=== PATIENT | female | born 1980 | race Caucasian/White ===

== ENCOUNTER 2019-08-13 21:30 | Emergency (ER) | payer OTHER ==
[~2019-08-13] VITALS: Ht 172.7 cm; Wt 67.1 kg
--- OUTSIDE RECORDS SUMMARY | 2019-08-13 21:33 | XMS REPORT | Summary of Care ---
Author Author [facility] - Health Organization [facility] - Health Address Unknown Phone Unavailable Care Team Providers Care Hydro Electric Station Operator Name Role Phone Pcp, Patient Does Not Have A PCP [phone] Reason for Visit * Reason Comments Refill Request Encounter Details Care Team Description Date Type Department Angeli Hester MD [address] [place] [address] Refill Request 10/12/2018 Refill [facility] [employer] [address] [place] [address] Allergies Comments Active Allergy Reactions Severity Noted Date Azithromycin Swelling 09/05/2018 documented as of this encounter (statuses as of 10/17/2018) Medications End Date Status Medication Sig Dispensed Refills Start Date Active cyclobenzaprine 10 mg Take 1 tablet 20 tablet 0 tabletIndications: Muscle by mouth at 9 spasm bedtime as needed for Muscle Spasms. Active propranolol (INDERAL XL) Take 1 30 capsule 1 0 80 mg 24 hr capsule by 9 capsuleIndications: mouth daily. Migraine without aura and without status migrainosus, not intractable 10/12/2018 Discontinued propranolol (INDERAL XL) Take 1 30 capsule 1 0 80 mg 24 hr capsule capsule by 9 mouth daily. documented as of this encounter (statuses as of 10/17/2018) Active Problems Estimated Date of Delivery Comments Yes 12/14/2018 Based on last menst rual period of 03/09/2018 (Exact Date) No additional problems on filedocumented as of this encounter (statuses as of 10/17/2018) Immunizations Name Administration Dates Next Due TDAP (ADACEL) VACCINE 09/21/2018 documented as of this encounter Social History Date Tobacco Use Types Packs/Day Years Used Started: 1998 Current Every Day Smoker Cigarettes Smokeless Tobacco: Never Used Comments: 2-3/day Drinks/Week oz/Week Comments Alcohol Use Not Currently Alcohol Habits Answer Date Recorded How often do you have a drink containing alcohol? Never 09/05/2018 How many drinks containing alcohol do you have on No t asked a typical day when you are drinking? How often do you have six or more drinks on one Not asked occasion? Estimated Date of Delivery Comments Yes 12/14/2018 Based on last menst rual period of 03/09/2018 (Exact Date) Sex Assigned at Date Recorded Not on file Industry Job Start Date Occupation Not on file Not on file Not on file Travel End Travel History Travel Start No recent travel history available. documented as of this encounter Last Filed Vital Signs Not on filedocumented in this encounter Plan of Treatment Care Team Description Date Type Specialty Angeli Hester MD [address] [place] [address] [phone] 10/19/2018 Routine Obstetrics & Gyneco logy Visit Health Maintenance Due Date Last Done Comments PNEUMOCOCCAL 0-64 YEARS 06/17/1985 COMBINED SERIES (1 of 1 - PPSV23) PAP SMEAR 06/17/2000 INFLUENZA VACCINE 11/18/2018 DTaP,Tdap,and Td Vaccines 09/21/2028 09/21/2018 (2 - Td) documented as of this encounter Results Not on filedocumented in this encounter Visit Diagnoses Diagnosis Migraine without aura and without statu s migrainosus, not intractable - Primary Migraine without aura, without mention of intractable migraine without mention of status migrainosus documented in this encounter Insurance Type Payer Benefit Subscriber ID Effective Phone Address Plan / Dates Group Medicaid COMMUNITY HEALTH CHOICE - COMMUNITY xxxxxxxxx 2018-P [address] MANAGED MEDICAID HEALTH resent [id number] [address] [place], [place] [address] documented as of this encounter
--- OUTSIDE RECORDS SUMMARY | 2019-08-13 21:33 | XMS REPORT | Summary of Care ---
Author Author [facility] - Health Organization [facility] - Health Address Unknown Phone Unavailable Care Team Providers Care Production Solderer Name Role Phone Pcp, Patient Does Not Have A PCP [phone] Reason for Visit * Reason Comments Care Encounter Details Care Team Description Date Type Department Angeli Hester MD [address] [place] [address] Supervision of high-risk of maria isabel navas multigravida (Primary Dx); White classification A1 gestational diabetes mellitus; Muscle spasm; Migraine without aura and without status migrainosus, not intractable; Excessive growth affecting management of in third trimester, single or unspecified fetus 10/11/2018 Routine [facility] [address] [place] [address] Allergies Comments Active Allergy Reactions Severity Noted Date Azithromycin Swelling 09/05/2018 documented as of this encounter (statuses as of 10/11/2018) Medications End Date Status Medication Sig Dispensed Refills Start Date Active propranolol (INDERAL XL) Take 1 30 capsule 1 0 80 mg 24 hr capsule capsule by 9 mouth daily. Active cyclobenzaprine 10 mg Take 1 tablet 20 tablet 0 tabletIndications: Muscle by mouth at 9 spasm bedtime as needed for Muscle Spasms. documented as of this encounter (statuses as of 10/11/2018) Active Problems Estimated Date of Delivery Comments Yes 12/14/2018 Based on last menst rual period of 03/09/2018 (Exact Date) No additional problems on filedocumented as of this encounter (statuses as of 10/11/2018) Immunizations Name Administration Dates Next Due TDAP [...] of this encounter Last Filed Vital Signs Reading Time Taken Comments Vital Sign 126/72 10/11/2018 1:25 PM CDT Blood Pressure 114 10/11/2018 1:25 PM CDT Pulse - - Temperature - - Respiratory Rate - - Oxygen Saturation - - Inhaled Oxygen Concentration 76.8 kg (169 lb 6.4 oz) 10/11/2018 1:25 PM CDT Weight 175.3 cm (5' 9") 10/11/2018 1:25 PM CDT Height 25.02 10/11/2018 1:25 PM CDT Body Mass Index documented in this encounter Progress Notes * Angeli Hester MD - 10/11/2018 1:00 PM CDT Chief complaint: care HPI Delma Hanley is a 38 year old female at 30w6d presenting for care. She reports migraines are controlled on inderall, has lots of discomfort f rom baby but otherwise feeling well. Denies [place]/dizziness/visual changes/sob/ches t pain/nausea/vomiting/LOF/bleeding, reports very active movement. Histories OB History Para Term AB Living 5 3 3 0 1 3 SAB TAB Ectopic Multiple Live Births 2 # Outcome Date GA Lbr Adriano/2nd Weight Sex Delivery Anes PTL Lv 5 Current 4 AB 3 Term 6 lb 8 oz (2.948 kg) F 2 Term 37w0d 6 lb 11 oz (3.033 kg) M SEC THAD 1 Term 7 lb 8 oz (3.402 kg) NORMAL SPONT TAHD Past Medical History: Diagnosis Date Asthma Migraines Family History Problem Relation Age of Onset Cancer NoFHx Family Status Relation Name Status NoFHx (Not Specified) Past Surgical History: Procedure Laterality Date APPENDECTOMY SECTION Social History Socioeconomic History Marital status: Spouse name: Not on file Number of children: Not on file Years of education: Not on file Highest education level: Not on file Occupational History Occupation: [employer]AY AT [employer]HER Social Needs Financial resource strain: Not on file Food insecurity: Worry: Not on file Inability: Not on file Transportation needs: Medical: Not on file Non-medical: Not on file Tobacco Use Smoking status: Current Every Day Smoker Types: Cigarettes Start date: 1998 Smokeless tobacco: Never Used Tobacco comment: 2-3/day Substance and Sexual Activity Alcohol use: Not Currently Frequency: Never Drug use: Yes Types: MDMA (Ecstacy), Marijuana Comment: HX OF DRUG USE -PT HAS BEEN CLEAN SINCE 04/2018 Sexual activity: Yes Partners: Male control/protection: None Lifestyle Physical activity: Days per week: Not on file Minutes per session: Not on file Stress: Not on file Relationships Social connections: Talks on phone: Not on file Gets together: Not on file Attends faith service: Not on file Active member of club or organization: Not on file Attends meetings of clubs or organizations: Not on file Relationship status: Not on file Intimate partner violence: Fear of current or ex partner: Not on file Emotionally abused: Not on file Physically abused: Not on file Forced sexual activity: Not on file Other Topics Concern Not on file Social History Narrative Not on file Social History Substance and Sexual Activity Sexual Activity Yes Partners: Male control/protection: None Labs No new labs Radiology I have reviewed the patient's radiology. EFW 95% Allergies Delma is allergic to azithromycin. Medications Delma has a current medication list which includes the following prescription(s ): propranolol. Review of Systems Constitutional: Negative. Respiratory: Negative. Cardiovascular: Negative. Gastrointestinal: Negative. Genitourinary: Negative. Musculoskeletal: Negative. Skin: Negative. Psychiatric/Behavioral: Positive for sleep disturbance. BP 126/72 | Pulse 114 | Ht 5' 9" (1.753 m) | Wt 169 lb 6.4 oz (76.8 kg) | LM P 03/09/2018 (Exact Date) | BMI 25.02 kg/m Pregravid BMI: Could not be calculated Physical Exam Vitals reviewed. Constitutional: She is oriented to person, place, and time. She appears well-dev eloped, well-nourished and well-groomed. Her body habitus is normal. Abdominal: Abdomen is soft. No mass palpated. No tenderness present. There is no rigidity and no guarding. Neuro/Psychiatric: She has a normal mood and affect. She is oriented to person, place, and time. Skin: Skin normal. Assessment/Plan Supervision of high-risk of elderly multigravida (primary encounter d iagnosis) Comment: FH 32 cm, FHT 155, BP 126/72, reviewed how to do kick counts - follow up in 1 week or PRN White classification A1 gestational diabetes mellitus Comment: did not bring log, reports most values normal except fasting, will mess age log Muscle spasm Comment: PRN flexeril Migraine without aura and without status migrainosus, not intractable Comment: controlled on inderall, patient has had for years Excessive growth affecting management of in third trimester, sin gle or unspecified fetus Comment: EFW 95% on recent ultrasound, still have not received earliest ultrasou nd report, will send ROR to Dr. Katrina Hester MD, 10/11/2018 documented in this encounter Plan of Treatment Care Team Description Date Type Specialty Angeli Hester MD [address] [place], [place] [id number] 10/17/2018 Routine Obstetrics & Gyneco logy Visit Health Maintenance Due Date Last Done Comments PNEUMOCOCCAL 0-64 YEARS 06/17/1985 COMBINED SERIES (1 of 1 - PPSV23) PAP SMEAR 06/17/2000 INFLUENZA VACCINE 11/18/2018 DTaP,Tdap,and Td Vaccines 09/21/2028 09/21/2018 (2 - Td) documented as of this encounter Results Not on filedocumented in this encounter Visit Diagnoses Diagnosis Supervision of high-risk of e lderly multigravida - Primary White classification A1 gestational hyun betes mellitus Muscle spasm Spasm of muscle Migraine without aura and without statu s migrainosus, not intractable Migraine without aura, without mention of intractable migraine without mention of status migrainosus Excessive growth affecting manage ment of in third trimester, single or unspecified fetus documented in this encounter Insurance Type Payer Benefit Subscriber ID Effective Phone Address Plan / Dates Group Medicaid COMMUNITY HEALTH CHOICE - COMMUNITY xxxxxxxxx 2018-P [address]NAGED MEDICAID HEALTH resent [id number] [address], [place] [address] documented as of this encounter
--- OUTSIDE RECORDS SUMMARY | 2019-08-13 21:33 | XMS REPORT | Summary of Care ---
Author Author [facility] - Health Organization [facility] - Health Address Unknown Phone Unavailable Care Team Providers Care Gynecological Assistant Name Role Phone Pcp, Patient Does Not Have A PCP [phone] Reason for Visit * Reason Comments Care Encounter Details Care Team Description Date Type Department Angeli Hester MD [address] [place] [address] Supervision of high-risk of maria isabel navas multigravida (Primary Dx); White classification A1 gestational diabetes mellitus; Muscle spasm; Migraine without aura and without status migrainosus, not intractable; Excessive growth affecting management of in third trimester, single or unspecified fetus 10/11/2018 Routine [facility] Women[facility] Visit [facility]- [facility] [address] [place] [address] Allergies Comments Active Allergy Reactions Severity Noted Date Azithromycin Swelling 09/05/2018 documented as of this encounter (statuses as of 10/16/2018) Medications End Date Status Medication Sig Dispensed Refills Start Date Active propranolol (INDERAL XL) Take 1 30 capsule 1 0 80 mg 24 hr capsule capsule by 9 mouth daily. Active cyclobenzaprine 10 mg Take 1 tablet 20 tablet 0 tabletIndications: Muscle by mouth at 9 spasm bedtime as needed for Muscle Spasms. documented as of this encounter (statuses as of 10/16/2018) Active Problems Estimated Date of Delivery Comments Yes 12/14/2018 Based on last menst rual period of 03/09/2018 (Exact Date) No additional problems on filedocumented as of this encounter (statuses as of 10/16/2018) Immunizations Name Administration Dates Next Due TDAP [...] documented in this encounter Progress Notes * Mariola Méndez RN - 10/11/2018 1:00 PM CDT Attempted to contact patient regarding scheduling diabetic education Detailed message left. Per forrest, can schedule with adrienne 10/15 at 11am * Angeli Hester MD - 10/11/2018 1:00 [...] Births 2 # Outcome Date GA Lbr Adrinao/2nd Weight Sex Delivery Anes PTL Lv 5 Current 4 AB 3 Term 6 lb 8 oz (2.948 kg) F 2 Term 37w0d 6 lb 11 oz (3.033 kg) M SEC THAD 1 Term 7 lb 8 oz (3.402 kg) NORMAL SPONT THAD Past Medical History: Diagnosis Date Asthma Migraines [...] file Gets together: Not on file Attends islam service: Not on file Active member of [...] Description Date Type Specialty Angeli Hester MD [address] [place], [place] [id number] 10/17/2018 Routine Obstetrics & Gyneco logy Visit [...] 2018-P [address]GED MEDICAID HEALTH resent [id number] [address], [place] [address] documented as of this encounter
--- OUTSIDE RECORDS SUMMARY | 2019-08-13 21:33 | XMS REPORT | Summary of Care ---
Author Author [facility] - Health Organization [facility] - Health Address Unknown Phone Unavailable Care Team Providers Care Tubular Splitting Machine Tender Name Role Phone Pcp, Patient Does Not Have A PCP [phone] Reason for Visit * Reason Comments Rx Concern/Question Auth Encounter Details Care Team Description Date Type Department Angeli Hester MD [address] [place] [address] Rx Concern/Question (Auth) 10/17/[address] [facility] [address] [place] [address] Allergies Comments Active Allergy Reactions Severity Noted Date Azithromycin Swelling 09/05/2018 documented as of this encounter (statuses as of 10/18/2018) Medications End Date Status Medication Sig Dispensed Refills Start Date Active cyclobenzaprine 10 mg Take 1 tablet 20 tablet 0 tabletIndications: Muscle by mouth at 9 spasm bedtime as needed for Muscle Spasms. Active propranolol (INDERAL XL) Take 1 30 capsule 1 0 80 mg 24 hr capsule by 9 capsuleIndications: mouth daily. Migraine without aura and without status migrainosus, not intractable documented as of this encounter (statuses as of 10/18/2018) Active Problems Estimated Date of Delivery Comments Yes 12/14/2018 Based on last menst rual period of 03/09/2018 (Exact Date) No additional problems on filedocumented as of this encounter (statuses as of 10/18/2018) Immunizations Name Administration Dates Next Due TDAP [...] Description Date Type Specialty Angeli Hester MD [address] [place], [place] [address] 10/19/2018 Routine Obstetrics & Gyneco logy Visit Health Maintenance Due Date Last Done Comments PNEUMOCOCCAL 0-64 YEARS 06/17/1985 COMBINED SERIES (1 of 1 - PPSV23) PAP SMEAR 06/17/2000 INFLUENZA VACCINE 11/18/2018 DTaP,Tdap,and Td Vaccines 09/21/2028 09/21/2018 (2 - Td) documented as of this encounter Results Not on filedocumented in this encounter Insurance Type Payer Benefit Subscriber ID Effective Phone Address Plan / Dates Group Medicaid COMMUNITY HEALTH CHOICE - COMMUNITY xxxxxxxxx 2018-P [address] MANAGED MEDICAID HEALTH [facility] [id number] [address] [place], [place] [address] documented as of this encounter
--- OUTSIDE RECORDS SUMMARY | 2019-08-13 21:33 | XMS REPORT | Summary of Care ---
Author Author [facility] - Health Organization [facility] - Health Address Unknown Phone Unavailable Care Team Providers Care Baker Laboratory Name Role Phone Pcp, Patient Does Not Have A PCP [phone] Encounter Details Care Team Description Date Type Department Doctor Unassigned, [place] [address] [place] [address] 09/10/2018 Patient Secure [facility] Ayaan Llamas es [address] [place] [phone] Allergies Comments Active Allergy Reactions Severity Noted Date Azithromycin Swelling 09/05/2018 documented as of this encounter (statuses as of 10/13/2018) Medications No known medicationsdocumented as of this encounter (statuses as of 10/13/2018) Active Problems Estimated Date of Delivery Comments Yes 12/14/2018 Based on last menst rual period of 03/09/2018 (Exact Date) No additional problems on filedocumented as of this encounter (statuses as of 10/13/2018) Social History Date Tobacco Use Types Packs/Day [...] Description Date Type Specialty Angeli Hester MD [address] [place], [place] [address] 10/17/2018 Routine Obstetrics & Gyneco logy Visit [...] xxxxxxxxx 2018-P [address]NA[address]ED MEDICA[address] [facility] [id number] [place], [place] [address] documented as of this encounter
--- OUTSIDE RECORDS SUMMARY | 2019-08-13 21:33 | XMS REPORT | Summary of Care ---
Author Author [facility] - Health Organization [facility] - Health Address Unknown Phone Unavailable Care Team Providers Care General Ledger Accountant Name Role Phone Pcp, Patient Does Not Have A PCP [phone] Encounter Details Care Team Description Date Type Department Angeli Hester MD [address] [place] [address] 10/16/2018 Patient Secure [facility] [place] [address] [facility] [address] [place] [address] Allergies Comments Active Allergy Reactions [...] Description Date Type Specialty Angeli Hester MD [address] [place] [address] [phone] 10/17/2018 Routine Obstetrics & Gyneco logy Visit [...] Plan / Dates Group Medicaid [facility] xxxxxxxxx 2018-P [address] MEDICAID HEALTH [facility] [id number] [address], [place] [address] documented as of this encounter
--- OUTSIDE RECORDS SUMMARY | 2019-08-13 21:33 | XMS REPORT | Summary of Care ---
Author Author [facility] Organization [facility] Address Unknown Phone Unavailable Encounter HQ Gerardo(JOSE) [id number] Date(s): 05/12/18 - 05/12/[address] [facility] [address] [place] [address]- Encounter Diagnosis Acute headache (Discharge Diagnosis) - 05/12/18 Subchorionic hemorrhage (Discharge Diagnosis) - 05/12/18 Discharge Disposition: Home or Self Care Attending Physician: Lonnie Buckley MD Vital Signs 1 2 3 Most recent to oldest [Reference Range]: 172.72 cm (05/12/18 2:32 AM) Height 99.4 DegF *HI* (05/12/18 10:32 AM) 98.1 DegF (05/12/18 7:05 AM) 98.3 DegF (05/12/18 5:25 AM) Temperature Oral [96.4-99.1 DegF] 98/56 mmHg (05/12/18 10:32 AM) 108/62 mmHg (05/12/18 8:10 AM) 114/70 mmHg (05/12/18 7:05 AM) Blood Pressure [90-140/60-90 mmHg] 16 BRMIN (05/12/18 10:32 AM) 18 BRMIN (05/12/18 8:10 AM) 16 BRMIN (05/12/18 7:05 AM) Respiratory Rate [14-20 BRMIN] 66 bpm (05/12/18 10:32 AM) 68 bpm (05/12/18 8:10 AM) 70 bpm (05/12/18 7:05 AM) Peripheral Pulse Rate [60-100 bpm] 65.909 kg (05/12/18 2:32 AM) Weight 22.09 m2 (05/12/18 2:32 AM) Body Mass Index Problem List Condition Effective Dates Status Health Status Informan t Migraine(Confirmed) Resolved Allergies, Adverse Reactions, Alerts Substance Reaction Severity Status erythromycin Active Medications Dextrose 5% with 0.9% NaCl IV 1,000 mL 1,000 mL, Rate: 150 ml/hr, Infuse over: 6.7 hr, Route: IV, Dosing Weight 65.909 kg, Total Volume: 1,000, Start date: 05/12/18 7:06:00 OCCUPATIONAL THERAPY AIDE, Duration: 30 day, Sto p date: 06/11/18 7:05:00 CDT, 1.79, m2 Start Date: 05/12/18 Stop Date: 05/12/18 Status: Discontinued NS (Bolus) IV 1,000 mL, 1,000 ml/hr, Infuse Over: 1 hr, Route: IV, ONCE, Priority: STATAbundioin g Weight 65.909 kg, Start date: 05/12/18 5:33:00 OCCUPATIONAL THERAPY AIDE, Stop date: 05/12/18 5:33:0 0 OCCUPATIONAL THERAPY AIDE Start Date: 05/12/18 Stop Date: 05/12/18 Status: Completed NS (Bolus) IV 1,000 mL, 1,000 ml/hr, Infuse Over: 1 hr, Route: IV, ONCE, Priority: STATAbundioin g Weight 65.909 kg, Start date: 05/12/18 5:32:00 OCCUPATIONAL THERAPY AIDE, Stop date: 05/12/18 5:32:0 0 OCCUPATIONAL THERAPY AIDE Start Date: 05/12/18 Stop Date: 05/12/18 Status: Completed Reglan 5 mg, Route: IVP, Drug form: INJ, ONCE, Dosing Weight 65.909, kg, Priority: STAT , Start date: 05/12/18 5:33:00 OCCUPATIONAL THERAPY AIDE, Stop date: 05/12/18 5:33:00 OCCUPATIONAL THERAPY AIDE Start Date: 05/12/18 Stop Date: 05/12/18 Status: Completed Tylenol 1,000 mg, Route: PO, Drug form: TAB, ONCE, Dosing Weight 65.909, kg, Priority: S TAT, Start date: 05/12/18 3:58:00 OCCUPATIONAL THERAPY AIDE, Stop date: 05/12/18 3:58:00 OCCUPATIONAL THERAPY AIDE Start Date: 05/12/18 Stop Date: 05/12/18 Status: Completed Tylenol 325 mg oral tablet 325 mg = 1 tab, PO, Q4H, PRN Pain, X 10 day, # 12 tab, 0 Refill(s) Start Date: 05/12/18 Stop Date: 05/22/18 Status: Ordered Zofran 4 mg, Route: IVP, Drug form: INJ, ONCE, Dosing Weight 65.909, kg, Priority: STAT , Start date: 05/12/18 3:58:00 OCCUPATIONAL THERAPY AIDE, Stop date: 05/12/18 3:58:00 OCCUPATIONAL THERAPY AIDE Start Date: 05/12/18 Stop Date: 05/12/18 Status: Completed Results ELECTROLYTES Most recent to 1 oldest [Reference Range]: Sodium Lvl [135-145 139 mEq/L mEq/L] (05/12/18 5:03 AM) Potassium Lvl 3.6 mEq/L [3.5-5.1 mEq/L] (05/12/18 5:03 AM) Chloride Lvl [95-109 109 mEq/L mEq/L] (05/12/18 5:03 AM) CO2 [24-32 mEq/L] 23 mEq/L *LOW* (05/12/18 5:03 AM) AGAP [10.0-20.0 10.6 mEq/L mEq/L] (05/12/18 5:03 AM) CHEM PANEL Most recent to 1 oldest [Reference Range]: Creatinine Lvl 0.44 mg/dL [0.50-1.40 mg/dL] *LOW* (05/12/18 5:03 AM) eGFR 128 mL/min/1.73m2 1 *NA* (05/12/18 5:03 AM) BUN [7-22 mg/dL] 8 mg/dL (05/12/18 5:03 AM) B/C Ratio [6-25] 18 (05/12/18 5:03 AM) Glucose Lvl [70-99 81 mg/dL mg/dL] (05/12/18 5:03 AM) Total Protein 7.1 g/dL [6.4-8.4 g/dL] (05/12/18 5:03 AM) Albumin Lvl [3.5-5.0 3.4 g/dL g/dL] *LOW* (05/12/18 5:03 AM) Globulin [2.7-4.2 3.7 g/dL g/dL] (05/12/18 5:03 AM) A/G Ratio [0.7-1.6] 0.9 (05/12/18 5:03 AM) Calcium Lvl 8.7 mg/dL [8.5-10.5 mg/dL] (05/12/18 5:03 AM) ALT [0-65 unit/L] 13 unit/L (05/12/18 5:03 AM) AST [0-37 unit/L] 12 unit/L (05/12/18 5:03 AM) Alk Phos [39-136 56 unit/L unit/L] (05/12/18 5:03 AM) Bili Total [0.2-1.3 0.4 mg/dL mg/dL] (05/12/18 5:03 AM) Lipase Lvl [73-393 72 unit/L unit/L] *LOW* (05/12/18 5:03 AM) 1Result Comment: The eGFR is calculated using the CKD-EPI formula. In most young, healthy individuals the eGFR will be >90 mL/min/1.73m2. The eGFR declines with age. An eGFR of 60-89 may be normal in some populations, particularly the elderly, for whom the CKD-EPI formula has not been extensively validated. Use of the eGFR is not recommended in the following populations: Individuals with unstable creatinine concentrations, including patients and those with serious co-morbid conditions. Patients with extremes in muscle mass or diet. The data above are obtained from the National Kidney Disease Education Program ( NKDEP) which additionally recommends that when the eGFR is used in patients with extremes of body mass index for purposes of drug dosing, the eGFR should be mul tiplied by the estimated BMI. ENDOCRINOLOGY Most recent to 1 oldest [Reference Range]: [place] [address] mIU/mL *NA* (05/12/18 5:03 AM) URINE AND STOOL Most recent to 1 oldest [Reference Range]: UA Turbidity [Clear] Slight *ABN* (05/12/18 5:03 AM) UA Color [Yellow] Yellow *NA* (05/12/18 5:03 AM) UA pH [5.0-8.0] 6.0 (05/12/18 5:03 AM) UA Spec Grav 1.018 [<=1.030] (05/12/18 5:03 AM) UA Glucose Negative [Negative] *NA* (05/12/18 5:03 AM) UA Blood [Negative] Negative (05/12/18 5:03 AM) UA Ketones [Negative 80 mg/dL mg/dL] *ABN* (05/12/18 5:03 AM) UA Protein Negative [Negative] (05/12/18 5:03 AM) UA Urobilinogen <=1.0 mg/dL [0.1-1.0 mg/dL] *NA* (05/12/18 5:03 AM) UA Bili [Negative] Negative *NA* (05/12/18 5:03 AM) UA Leuk Est Trace [Negative] *ABN* (05/12/18 5:03 AM) UA Nitrite Negative [Negative] (05/12/18 5:03 AM) UA WBC [0-5 /HPF] 4 /HPF (05/12/18 5:03 AM) UA RBC [0-2 /HPF] 1 /HPF (05/12/18 5:03 AM) UA Sq Epi [Few /LPF] Many /LPF *ABN* (05/12/18 5:03 AM) UA Amorph Jacquelyn [None Occasional /HPF Seen /HPF] *NA* (05/12/18 5:03 AM) UA Mucus [None Seen Few /LPF /LPF] *NA* (05/12/18 5:03 AM) HEMATOLOGY Most recent to 1 oldest [Reference Range]: WBC [3.7-10.4 K/CMM] 11.2 K/CMM *HI* (05/12/18 5:03 AM) RBC [4.20-5.40 4.12 M/CMM M/CMM] *LOW* (05/12/18 5:03 AM) Hgb [12.0-16.0 g/dL] 12.6 g/dL (05/12/18 5:03 AM) Hct [36.0-48.0 %] 37.3 % (05/12/18 5:03 AM) MCV [80.0-98.0 fL] 90.4 fL (05/12/18 5:03 AM) MCH [27.0-31.0 pg] 30.6 pg (05/12/18 5:03 AM) MCHC [32.0-36.0 33.9 g/dL g/dL] (05/12/18 5:03 AM) RDW [11.5-14.5 %] 15.1 % *HI* (05/12/18 5:03 AM) MPV [7.4-10.4 fL] 8.4 fL (05/12/18 5:03 AM) Platelet [133-450 350 K/CMM K/CMM] (05/12/18 5:03 AM) Segs [45.0-75.0 %] 72.8 % (05/12/18 5:03 AM) Lymphocytes 20.0 % [20.0-40.0 %] (05/12/18 5:03 AM) Monocytes [2.0-12.0 6.0 % %] (05/12/18 5:03 AM) Eosinophils [0.0-4.0 0.9 % %] (05/12/18 5:03 AM) Basophils [0.0-1.0 0.3 % %] (05/12/18 5:03 AM) Neutrophils # 8.2 K/CMM [1.5-8.1 K/CMM] *HI* (05/12/18 5:03 AM) Lymphocytes # 2.2 K/CMM [1.0-5.5 K/CMM] (05/12/18 5:03 AM) Monocytes # [0.0-0.8 0.7 K/CMM K/CMM] (05/12/18 5:03 AM) Eosinophils # 0.1 K/CMM [0.0-0.5 K/CMM] (05/12/18 5:03 AM) Immunizations No data available for this section Procedures No data available for this section Social History Social History Type Response Smoking Status Former smoker; Type: Cigare ttes; Exposure to Tobacco Smoke None; Cigarette Smoking Last 365 Days No; Reg Smoking C essation Counseling No entered on: 05/12/18 Assessment and Plan No data available for this section
--- OUTSIDE RECORDS SUMMARY | 2019-08-13 21:33 | XMS REPORT | Summary of Care ---
Author Author [facility] - Health Organization [facility] - Health Address Unknown Phone Unavailable Care Team Providers Care Collection Clerk Name Role Phone Pcp, Patient Does Not Have A PCP [phone] Reason for Visit * Reason Comments Rx Concern/Question Auth Encounter Details Care Team Description Date Type Department Angeli Hester MD [address] [place] [address] Rx Concern/Question (Auth) 10/17/2018 [facility]phone [facility] [address] [place] [address] Allergies Comments Active Allergy Reactions Severity Noted Date Azithromycin Swelling 09/05/2018 documented as of this encounter (statuses as of 10/23/2018) Medications End Date Status Medication Sig Dispensed [...] as of this encounter (statuses as of 10/23/2018) Active Problems Estimated Date of Delivery Comments Yes 12/14/2018 Based on last menst rual period of 03/09/2018 (Exact Date) No additional problems on filedocumented as of this encounter (statuses as of 10/23/2018) Immunizations Name Administration Dates Next Due TDAP [...] Date Type Specialty Angeli Hester MD [address] [place], [place] [id number] 10/23/2018 Routine Obstetrics & Gyneco logy Visit Health [...] xxxxxxxxx 2018-P [address] MANAGED MEDICAID HEALTH [facility] [id number] [place], [place] [address] documented as of this encounter
--- OUTSIDE RECORDS SUMMARY | 2019-08-13 21:33 | XMS REPORT | Summary of Care ---
Author Author [facility] - Health Organization [facility] - Health Address Unknown Phone Unavailable Care Team Providers Care Plaster Machine Tender Name Role Phone Pcp, Patient Does Not Have A PCP [phone] Reason for Visit * Reason Comments Care Encounter Details Care Team Description Date Type Department Angeli Hester MD [address] [place] [address] Supervision of high-risk of maria isabel navas multigravida (Primary Dx); White classification A1 gestational diabetes mellitus; Muscle spasm; Migraine without aura and without status migrainosus, not intractable; Excessive growth affecting management of in third trimester, single or unspecified fetus 10/11/2018 Routine [facility] [address] [place] [address] Allergies Comments Active Allergy Reactions [...] file Gets together: Not on file Attends temple service: Not on file Active member of [...] Description Date Type Specialty Angeli Hester MD [address] [place], [place] [address] 10/17/2018 Routine Obstetrics & Gyneco logy Visit [...] 2018-P [address]ED MEDICAID HEALTH [id number] [place], [place] [address] documented as of this encounter
--- OUTSIDE RECORDS SUMMARY | 2019-08-13 21:33 | XMS REPORT | Summary of Care ---
Author Author [facility] - Health Organization [facility] - Health Address Unknown Phone Unavailable Care Team Providers Care Programming Internship Name Role Phone Pcp, Patient Does Not Have A PCP Encounter Details Care Team Description Date Type Department Doctor Unassigned, [place] [address] [place] [address] 10/17/2018 Orders Only [facility] [address] [place] [address] Allergies Comments Active Allergy Reactions Severity Noted [...] Date Type Specialty Angeli Hester MD [address] [place] [address] [phone] 10/19/2018 Routine Obstetrics & Gyneco logy Visit Health Maintenance Due Date Last Done Comments PNEUMOCOCCAL 0-64 YEARS 06/17/1985 COMBINED SERIES (1 of 1 - PPSV23) PAP SMEAR 06/17/2000 INFLUENZA VACCINE 11/18/2018 DTaP,Tdap,and Td Vaccines 09/21/2028 09/21/2018 (2 - Td) documented as of this encounter Procedures Comments Procedure Name Priority Date/Time Associated Diag nosis EXTERNAL PROVIDER RECORDS Routine 10/17/2018 12:01 AM CDT documented in this encounter Results Not on filedocumented in this encounter Insurance Type Payer Benefit Subscriber ID Effective Phone Address Plan / Dates Group Medicaid COMMUNITY HEALTH CHOICE - COMMUNITY xxxxxxxxx 2018-P [address]GED MEDICAID HEALTH [facility] [id number] [place], [place] [address] documented as of this encounter
--- OUTSIDE RECORDS SUMMARY | 2019-08-13 21:33 | XMS REPORT | Summary of Care ---
Author Author [facility] - Health Organization [facility] - Health Address Unknown Phone Unavailable Care Team Providers Care Supervisor P[employer] Name Role Phone Pcp, Patient Does Not Have A PCP Reason for Visit * Reason Comments Refill Request Encounter Details Care Team Description Date Type Department Angeli Hester MD [address] [place] [address] Refill Request 10/11/2018 [facility] [address] [place] [address] Allergies Comments Active Allergy Reactions [...] Date Type Specialty Angeli Hester MD [address] [place], [place] [address] 10/17/2018 Routine Obstetrics & Gyneco logy Visit Health Maintenance Due Date Last Done Comments PNEUMOCOCCAL 0-64 YEARS 06/17/1985 COMBINED SERIES (1 of 1 - PPSV23) PAP SMEAR 06/17/2000 INFLUENZA VACCINE 11/18/2018 DTaP,Tdap,and Td Vaccines 09/21/2028 09/21/2018 (2 - Td) documented as of this encounter Results Not on filedocumented in this encounter Visit Diagnoses Diagnosis Muscle spasm Spasm of muscle documented in this encounter Insurance Type Payer Benefit Subscriber ID Effective Phone Address Plan / Dates Group Medicaid COMMUNITY HEALTH CHOICE - COMMUNITY xxxxxxxxx 2018-P [address]NAGED MEDICAID HEALTH [facility] [id number] [place], [place] [phone] documented as of this encounter
--- OUTSIDE RECORDS SUMMARY | 2019-08-13 21:33 | XMS REPORT | Continuity of Care Document ---
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, unspecified trimester, not applicable or unspecified 05/12/2018 05/14/2018 [facility] VOMITING / 9WK PREG Active 05/11/2018 [facility] HEADACHE Active 08/15/2012 [facility] Migraine (disorder) Resolved Problem 05/14/2018 [facility] Migraine Resolved Problem 11/17/2012 [facility] Medications Medication Details Route Status Patient Instructions Ordering Provider Order Date Source Acetaminophen 325 MG Oral Tablet [Tylenol] 325 mg = 1 tab, PO, Q4H, PRN Pain, X 10 day, # 12 tab, 0 Refill(s) Active 05/12/2018 [facility] Dextrose 5% with 0.9% NaCl IV 1,000 mL 1,000 mL, Rate: 150 ml/hr, Infuse over: 6.7 hr, Route: IV, Dosing Weight 65.909 kg, Total Volume: 1,000, Start date: 05/12/18 7:06:00 SISAL PICKER, Duration: 30 day, Stop date: 06/11/18 7:05:00 CDT, 1.79, m2 Inactive 05/12/2018 [facility] Reglan 5 mg, Route: IVP, Drug form: INJ, ONCE, Dosing Weight 65.909, kg, Priority: STAT, Start date: 05/12/18 5:33:00 SISAL PICKER, Stop date: 05/12/18 5:33:00 SISAL PICKER Inactive 05/12/2018 [facility] NS (Bolus) IV 1,000 mL, 1,000 ml/hr, Infuse Over: 1 hr, Route: IV, ONCE, Priority: STAT, Dosing Weight 65.909 kg, Start date: 05/12/18 5:33:00 SISAL PICKER, Stop date: 05/12/18 5:33:00 SISAL PICKER Inactive 05/12/2018 [facility] NS (Bolus) IV 1,000 mL, 1,000 ml/hr, Infuse Over: 1 hr, Route: IV, ONCE, Priority: STAT, Dosing Weight 65.909 kg, Start date: 05/12/18 5:32:00 SISAL PICKER, Stop date: 05/12/18 5:32:00 SISAL PICKER Inactive 05/12/2018 [facility] Tylenol 1,000 mg, Route: PO, D rug form: TAB, ONCE, Dosing Weight 65.909, kg, Priority: STAT, Start date: 05/12/18 3:58:00 SISAL PICKER, Stop date: 05/12/18 3:58:00 SISAL PICKER Inactive 05/12/2018 [facility] Zofran 4 mg, Route: IVP, Drug form: INJ, ONCE, Dosing Weight 65.909, kg, Priority: STAT, Start date: 05/12/18 3:58:00 SISAL PICKER, Stop date: 05/12/18 3:58:00 SISAL PICKER Inactive 05/12/2018 [facility] naproxen 500 mg oral tablet 50 0 mg, 1 tab, PO, BID, PRN, 30 tab, Pain, Substitution Allowed PO Active Rice 11/15/2012 [facility] Chandler 7.5/325 oral tablet 1-2 tab, PO, Q4-6H, PRN, 30 tab, Pain, Substitution Allowed, Maintenance PO Active [facility] 11/15/2012 [facility] Ceftin 250 mg oral tablet 500 mg, 2 tab, PO, BID, 20 tab, Substitution Allowed PO Active [facility] 11/15/2012 [facility] Bactrim DS oral tablet 1 tab, PO, BID, 28 tab, Substitution Allowed, Maintenance PO Active [facility] 11/15/2012 [facility] Rocephin 1 gm, Route: IVPB, Dr ug form: PDR/INJ, ONCE, Dosing Weight 59.091, kg, Priority: STAT, Start date: 11/15/12 2:52:00, Stop date: 11/15/12 2:52:00 IVPB No Longer Active Rice 11/15/2012 [facility] ketorolac 30 mg, Route: IVP, D rug form: INJ, ONCE, Dosing Weight 59.091, kg, Priority: STAT, Start date: 11/15/12 2:52:00, Stop date: 11/15/12 2:52:00 IVP No Longer Active Thayer 11/15/2012 [facility] Benadryl 12.5 mg, Route: IVP, ONCE, Dosing Weight 59.091, kg, Priority: STAT, Start date: 11/15/12 2:52:00, Stop date: 11/15/12 2:52:00 IVP No Longer Active Thayer 11/15/2012 [facility] Reglan 10 mg, Route: IVP, Drug form: INJ, ONCE, Dosing Weight 59.091, kg, Priority: STAT, Start date: 11/15/12 2:52:00, Stop date: 11/15/12 2:52:00 IVP No Longer Active Rice 11/15/2012 [facility] potassium chloride 40 mEq, Rou te: PO, Drug form: ERTAB, ONCE, Dosing Weight 59.091, kg, Priority: STAT, Start date: 11/15/12 2:38:00, Stop date: 11/15/12 2:38:00 PO No Longer Active Thayer 11/15/2012 [facility] ondansetron 4 mg, Route: IVP, Drug form: INJ, ONCE, Dosing Weight 59.091, kg, Priority: STAT, Start date: 11/15/12 1:31:00, Stop date: 11/15/12 1:31:00 IVP No Longer Active Thayer 11/15/2012 [facility] Sodium Chloride 0.9% (Bolus) IV 1,000 mL 1,000 mL, Rate: 1,000 ml/hr, Infuse over: 1 hr, Route: IV, Dosing Weight 59.091 kg, Total Volume: 1,000, Priority: STAT, Start date: 11/15/12 1:31:00, Duration: 1 doses or times, Stop date: 11/15/12 2:30:00, Bolus DoseBolus Dose IV No Longer Active Thayer 11/15/2012 [facility] morphine Sulfate 4 mg, Route: IVP, Drug form: INJ, ONCE, Dosing Weight 59.091, kg, Priority: STAT, Start date: 11/15/12 1:31:00, Stop date: 11/15/12 1:31:00 IVP No Longer Active Thayer 11/15/2012 [facility] Tylenol 975 mg, Route: PO, ONC E, Dosing Weight 59.091, kg, Priority: STAT, Start date: 11/14/12 21:10:00, Stop date: 11/14/12 21:10:00 PO No Longer Active Rubens 11/15 [facility] Allergies, Adverse Reactions, Alerts Substance Category Reaction Severity Reaction type Status Date Reported Comments Source erythromycin Assertion Drug allergy Active [facility] Immunizations No Data Provided for This Section Results Order Name Results Value Reference Range Date Interpretation Comments Source CHEM PANEL Lipase Lvl 72 73 - 393 05/12/2018 [facility] CHEM PANEL Globulin 3.7 2.7 - 4.2 05/12/2018 [facility] CHEM PANEL B/C Ratio 18 6 - 25 05/12/2018 [facility] CHEM PANEL A/G Ratio 0.9 0.7 - 1.6 05/12/2018 [facility] CHEM PANEL AGAP 10.6 10.0 - 20.0 05/12/2018 [facility] CHEM PANEL Alk Phos 56 39 - 136 05/12/2018 [facility] CHEM PANEL AST 12 0 - 37 05/12/2018 [facility] CHEM PANEL ALT 13 0 - 65 05/12/2018 [facility] CHEM PANEL Albumin Lvl 3.4 3.5 - 5.0 05/12/2018 [facility] CHEM PANEL Calcium Lvl 8.7 8.5 - 10.5 05/12/2018 [facility] CHEM PANEL Total Protein 7.1 6.4 - 8.4 05/12/2018 [facility] CHEM PANEL eGFR 128 05/12/2018 Result Comment: The eGFR is calculated using the [...] from the National Kidney Disease Education Program (NKDEP) which additionally recommends that when the eGFR is used in patients with extremes of body mass index for purposes of drug dosing, the eGFR should be multiplied by the estimated BMI. [facility] CHEM PANEL Glucose Lvl 81 70 - 99 05/12/2018 [facility] CHEM PANEL BUN 8 7 - 22 05/12/2018 [facility] CHEM PANEL Bili Total 0.4 0.2 - 1.3 05/12/2018 [facility] CHEM PANEL CO2 23 24 - 32 05/12/2018 [facility] CHEM PANEL Sodium Lvl 139 135 - 145 05/12/2018 [facility] CHEM PANEL Chloride Lvl 109 95 - 109 05/12/2018 [facility] CHEM PANEL Creatinine Lvl 0.44 0.50 - 1.40 05/12/2018 [facility] CHEM PANEL Potassium Lvl 3.6 3.5 - 5.1 05/12/2018 [facility] [place] [id number] 05/12/2018 [facility] HEMATOLOGY Eosinophils # 0.1 0.0 - 0.5 05/12/2018 [facility] HEMATOLOGY Eosinophils 0.9 0.0 - 4.0 05/12/2018 [facility] HEMATOLOGY Basophils 0.3 0.0 - 1.0 05/12/2018 [facility] HEMATOLOGY Neutrophils # 8.2 1.5 - 8.1 05/12/2018 [facility] HEMATOLOGY Lymphocytes # 2.2 1.0 - 5.5 05/12/2018 [facility] HEMATOLOGY Monocytes # 0.7 0.0 - 0.8 05/12/2018 [facility] HEMATOLOGY Segs 72.8 45.0 - 75.0 05/12/2018 [facility] HEMATOLOGY Lymphocytes 20.0 20.0 - 40.0 05/12/2018 [facility] HEMATOLOGY Monocytes 6.0 2.0 - 12.0 05/12/2018 [facility] HEMATOLOGY RBC 4.12 4.20 - 5.40 05/12/2018 [facility] HEMATOLOGY Hct 37.3 36.0 - 48.0 05/12/2018 [facility] HEMATOLOGY Hgb 12.6 12.0 - 16.0 05/12/2018 [facility] HEMATOLOGY MPV 8.4 7.4 - 10.4 05/12/2018 [facility] HEMATOLOGY Platelet 350 133 - 450 05/12/2018 [facility] HEMATOLOGY RDW 15.1 11.5 - 14.5 05/12/2018 [facility] HEMATOLOGY MCHC 33.9 32.0 - 36.0 05/12/2018 [facility] HEMATOLOGY WBC 11.2 3.7 - 10.4 05/12/2018 [facility] HEMATOLOGY MCH 30.6 27.0 - 31.0 05/12/2018 [facility] HEMATOLOGY MCV 90.4 80.0 - 98.0 05/12/2018 [facility] URINE AND STOOL UA Amorph Jacquelyn Occasional /HPF None Seen /HPF 05/12/[address] [facility] [address] URINE AND STOOL UA RBC 1 0 - 2 05/12/2018 [facility] URINE AND STOOL UA WBC 4 0 - 5 05/12/2018 [facility] URINE AND STOOL UA Sq Epi Many /LPF Few /LPF 05/12/2018 [facility] URINE AND STOOL UA Leuk Est Trace *ABN* (05/12/18 5:03 AM) Negative 05/12/2018 [facility] URINE AND STOOL UA Blood Negative (05/12/18 5:03 AM) Negative 05/12/2018 [facility] URINE AND STOOL UA Nitrite Negative (05/12/18 5:03 AM) Negative 05/12/2018 [facility] URINE AND STOOL UA Urobilinogen <=1.0 mg/dL 0.1 - 1.0 05/12/2018 [facility] URINE AND STOOL UA Bili Negative *NA* (05/12/18 5:03 AM) Negative 05/12/2018 [facility] URINE AND STOOL UA Ketones 80 mg/dL Negative mg/dL 05/12/2018 [facility] URINE AND STOOL UA Mucus Few /LPF None Seen /LPF 05/12/2018 [facility] URINE AND STOOL UA Color Yellow *NA* (05/12/18 5:03 AM) Yellow 05/12/2018 [facility] URINE AND STOOL UA Spec Grav 1.018 <=1.030 05/12/2018 [facility] URINE AND STOOL UA Turbidity Slight *ABN* (05/12/18 5:03 AM) Clear 05/12/2018 [facility] URINE AND STOOL UA Protein Negative (05/12/18 5:03 AM) Negative 05/12/2018 [facility] URINE AND STOOL UA pH 6.0 5.0 - 8.0 05/12/2018 [facility] URINE AND STOOL UA Glucose Negative *NA* (05/12/18 5:03 AM) Negative 05/12/2018 [facility] CHEMISTRY Lipase Lvl 91 73 - 393 11/15/2012 Normal [facility] CHEMISTRY A/G Ratio 0.7 0.7 - 1.6 11/15/2012 Normal [facility] CHEMISTRY AGAP 14.0 10.0 - 20.0 11/15/2012 Normal [facility] CHEMISTRY B/C Ratio 12 6 - 25 11/15/2012 Normal [facility] CHEMISTRY Globulin 4.1 2.0 - 4.0 11/15/2012 [place] [facility] CHEMISTRY Bili Total 0.3 0.2 - 1.3 11/15/2012 Normal [facility] CHEMISTRY AST 15 0 - 37 11/15/2012 Normal [facility] CHEMISTRY Albumin Lvl 2.7 3.5 - 5.0 11/15/2012 LOW [facility] CHEMISTRY ALT 18 0 - 65 11/15/2012 Normal [facility] CHEMISTRY Alk Phos 96 39 - 136 11/15/2012 Normal [facility] CHEMISTRY Total Protein 6.8 6.4 - 8.4 11/15/2012 Normal [facility] CHEMISTRY eGFR 97 11/15/2012 NA <sup>2</sup>Result Comment: The eGFR is calculated using the CKD-EPI formula. In most young, healthy individuals the eGFR will be >90 mL/min/1.73m2. The eGFR declines with age. An eGFR of 60-89 may be normal in some populations, particularly the elderly, for whom the CKD-EPI formula has not been extensively validated. Use of the eGFR is not recommended in the following populations:& lt;br/>
Individuals with unstable creatinine concentrations, including patients and those with serious co-morbid conditions.

Patients with extremes in muscle mass or diet.

The data above are obtained from the National Kidney Disease Education Program (NKDEP) which additionally recommends that when the eGFR is used in patients with extremes of body mass index for purposes of drug dosing, the eGFR should be multiplied by the estimated BMI. [facility] CHEMISTRY CO2 26 24 - 32 11/15/2012 Normal [facility] CHEMISTRY Calcium Lvl 8.4 8.5 - 10.5 11/15/2012 LOW [facility] CHEMISTRY BUN 10 7 - 22 11/15/2012 Normal [facility] CHEMISTRY Creatinine Lvl 0.8 0.5 - 1.4 11/15/2012 Normal [facility] CHEMISTRY Glucose Lvl 100 70 - 99 11/15/2012 [place] <sup>3</sup>Interpretive Data: Adult ref erence range values reflect the clinical guidelines
of the [place] [employer]. [facility] CHEMISTRY Chloride Lvl 102 95 - 109 11/15/2012 Normal [facility] CHEMISTRY Potassium Lvl 3.0 3.5 - 5.1 11/15/2012 [facility] <sup>1</sup>Result Comment: Critical Res ult(s) called to jorge talavera at 11/15/2012 02:23 by/cristal. Read back OK. [facility] CHEMISTRY Sodium Lvl 139 135 - 145 11/15/2012 Normal [facility] CHEMISTRY U Preg Negati ve (11/15/2012 01:50:00) Negati ve 11/15/2012 Normal [facility] HEMATOLOGY Hct 37.5 36.0 - 48.0 11/15/2012 Normal [facility] HEMATOLOGY Hgb 12.2 12.0 - 16.0 11/15/2012 Normal [facility] HEMATOLOGY WBC 9.4 3.7 - 10.4 11/15/2012 Normal [facility] HEMATOLOGY RBC 3.89 4.20 - 5.40 11/15/2012 LOW [facility] HEMATOLOGY MPV 8.8 7.4 - 10.4 11/15/2012 Normal [facility] HEMATOLOGY Platelet 291 133 - 450 11/15/2012 Normal [facility] HEMATOLOGY MCH 31.2 27.0 - 31.0 11/15/2012 [place] [facility] HEMATOLOGY MCV 96.4 81.0 - 99.0 11/15/2012 Normal [facility] HEMATOLOGY RDW 13.1 11.5 - 14.5 11/15/2012 Normal [facility] HEMATOLOGY MCHC 32.4 32.0 - 36.0 11/15/2012 Normal [facility] HEMATOLOGY Segs-Bands # 6.5 1.5 - 8.1 11/15/2012 Normal [facility] HEMATOLOGY Lymphocytes # 1.7 1.0 - 5.5 11/15/2012 Normal [facility] HEMATOLOGY RBC Morph Ingrid l (11/15/2012 01:50:00) 11/15/2012 Normal [facility] HEMATOLOGY Plt Morph Clump ed (11/15/2012 01:50:00) 11/15/2012 Normal [facility] HEMATOLOGY Monocytes 11.0 2.0 - 12.0 11/15/2012 Normal [facility] HEMATOLOGY Eosinophils 1.2 0.0 - 4.0 11/15/2012 Normal [facility] HEMATOLOGY Segs 69.2 45.0 - 75.0 11/15/2012 Normal [facility] HEMATOLOGY Basophils 0.1 0.0 - 1.0 11/15/2012 Normal [facility] HEMATOLOGY Monocytes # 1.0 0.0 - 0.8 11/15/2012 [place] [facility] HEMATOLOGY Eosinophils # 0.1 0.0 - 0.5 11/15/2012 Normal [facility] HEMATOLOGY Basophils # 0.0 0.0 - 0.2 11/15/2012 Normal [facility] HEMATOLOGY Lymphocytes 18.5 20.0 - 40.0 11/15/2012 LOW [facility] IMMUNOLOGY CDC-HIV 1/2 Ab Negat pedro pablo *NA* (11/15/2012 01:50:00) Negati ve 11/15/2012 [facility] URINALYSIS UA Ketones Negat pedro pablo mg/dL *NA* (11/15/2012 01:50:00) Negati ve 11/15/2012 [facility] URINALYSIS UA Glucose Negat pedro pablo mg/dL *NA* (11/15/2012 01:50:00) Negati ve 11/15/2012 [facility] URINALYSIS UA Spec Grav 1.009 <=1.030 11/15/2012 Normal [facility] URINALYSIS UA Protein Negat pedro pablo mg/dL (11/15/2012 01:50:00) Negati ve 11/15/2012 Normal [facility] URINALYSIS UA pH 6.0 5.0 - 8.0 11/15/2012 Normal [facility] URINALYSIS UA Color Yello w *NA* (11/15/2012 01:50:00) Yellow 11/15/2012 [facility] URINALYSIS UA Turbidity Marke d *ABN* (11/15/2012 01:50:00) Clear 11/15/2012 ABN [facility] URINALYSIS UA RBC 2 0 - 2 11/15/2012 Normal [facility] URINALYSIS UA Leuk Est Small *ABN* (11/15/2012 01:50:00) Negati ve 11/15/2012 ABN [facility] URINALYSIS UA WBC 8 0 - 5 11/15/2012 [facility] URINALYSIS UA Bacteria Many /HPF *ABN* (11/15/2012 01:50:00) None S een 11/15/2012 ABN [facility] URINALYSIS UA Sq Epi Occas ional /LPF *NA* (11/15/2012 01:50:00) Few 11/15/2012 [facility] URINALYSIS UA Blood Moder ate *ABN* (11/15/2012 01:50:00) Negati ve 11/15/2012 [facility] URINALYSIS UA Bili Negat pedro pablo *NA* (11/15/2012 01:50:00) Negati ve 11/15/2012 [facility] URINALYSIS UA Nitrite Negat pedro pablo (11/15/2012 01:50:00) Negati ve 11/15/2012 Normal [facility] URINALYSIS UA Urobilinogen 0.1 - 1.0 11/15/2012 [facility] URINALYSIS UA Mucus Few / LPF *NA* (11/15/2012 01:50:00) None S een 11/15/2012 [facility] Pathology Reports No Data Provided for This Section Diagnostic Reports Report Value Date Source < 14 weeks single gestation US Please note that there was a typographical error on the exam. This is the correction. FINDINGS: The pelvic transabdominal ultrasound static images show that the anteverted uterus measures 10.5 x 7.4 x 9.4 cm. The pelvic transabdominal images show a single monochorionic/monoamnionic intrauterine with an ovoid gestational sac. The pole and yolk sac are seen. The estimated gestational age is 9 weeks and 4 days by crown-rump length of 2.73 cm. The heart rate is 171 beats per minute. Subchorionic hypoechoic 2.9 x 1.5 cm area is seen, suggestive of a medium-sized hemorrhage. Recommend short interval follow-up with sonography for complete assessment. The right ovary measures 2.6 x 2.5 x 1.8 cm and the left ovary measures 3.2 x 2.6 x 2 cm. There is normal ovarian contour and morphology. Left ovarian 2 x 1.6 x 1.4 cm hypoechoic area is seen, suggestive of a corpus luteum type cyst. There are no adnexal masses. The Doppler images show normal bilateral ovarian blood flow. There is no free fluid in the cul-de-sac. IMPRESSION: 1. Single intrauterine with es timated gestational age of 9 weeks and 4 days by crown-rump length. heart rate of 171 beats per minute. Subchorionic hypoechoic 2.9 x 1.5 cm area, suggestive of a medium-sized hemorrhage. Recommend short interval follow-up with sonography for complete assessment. 2. Left ovarian 2 x 1.6 x 1.4 cm hypoech oic area, suggestive of a corpus luteum type cyst. Clinical Indication: - abd pain, vomiting. Last menstrual period 03/12/2018. Comparison: None. TECHNIQUE: Pelvic ultrasound was performed with color and almaguer scale imaging. Only transabdominal imaging was performed. FINDINGS: The pelvic transabdominal ultrasound static images show that the anteverted uterus measures 10.5 x 7.4 x 9.4 cm. The pelvic transvaginal images show a single monochorionic/monoamnionic intrauterine with an ovoid gestational sac. The pole and yolk sac are seen. The estimated gestational age is 9 weeks and 4 days by crown-rump length of 2.73 cm. The heart rate is 171 beats per minute. Subchorionic hypoechoic 2.9 x 1.5 cm area is seen, suggestive of a medium-sized hemorrhage. Recommend short interval follow-up with sonography for complete assessment. The right ovary measures 2.6 x 2.5 x 1.8 cm and the left ovary measures 3.2 x 2.6 x 2 cm. There is normal ovarian contour and morphology. Left ovarian 2 x 1.6 x 1.4 cm hypoechoic area is seen, suggestive of a corpus luteum type cyst. There are no adnexal masses. The Doppler images show normal bilateral ovarian blood flow. There is no free fluid in the cul-de-sac. IMPRESSION: 1. Single intrauterine with es timated gestational age of 9 weeks and 4 days by crown-rump length. heart rate of 171 beats per minute. Subchorionic hypoechoic 2.9 x 1.5 cm area, suggestive of a medium-sized hemorrhage. Recommend short interval follow-up with sonography for complete assessment. 2. Left ovarian 2 x 1.6 x 1.4 cm hypoech oic area, suggestive of a corpus luteum type cyst. SL: [id number] 05/12/2018 [facility] Consultation Notes No Data Provided for This Section Discharge Summaries No Data Provided for This Section History and Physicals No Data Provided for This Section Vital Signs Vital Sign Value Date Comments Source Heart Rate 66 05/12/2018 [facility] Respitory Rate 16 05/12/2018 [facility] Systolic (mm Hg) 98 05/12/2018 [facility] Diastolic (mm Hg) 56 05/12/2018 [facility] Temperature Oral (F) 99.4 F 05/12/2018 [facility] Systolic (mm Hg) 108 05/12/2018 [facility] Diastolic (mm Hg) 62 05/12/2018 [facility] Heart Rate 68 05/12/2018 [facility] Respitory Rate 18 05/12/2018 [facility] Systolic (mm Hg) 114 05/12/2018 [facility] Diastolic (mm Hg) 70 05/12/2018 [facility] Heart Rate 70 05/12/2018 [facility] Respitory Rate 16 05/12/2018 [facility] Temperature Oral (F) 98.1 F 05/12/2018 [facility] Temperature Oral (F) 98.3 F 05/12/2018 [facility] Weight 65.909 05/12/2018 [facility] Height 172.72 cm 05/12/2018 [facility] BMI Calculated 22.09 05/12/2018 [facility] Respitory Rate 20 11/15/2012 [facility] Heart Rate 72 11/15/2012 [facility] Temperature Oral (F) 98.2 F 11/15/2012 [facility] Systolic (mm Hg) 99 11/15/2012 [facility] Diastolic (mm Hg) 77 11/15/2012 [facility] Systolic (mm Hg) 106 11/15/2012 [facility] Temperature Oral (F) 98.4 F 11/15/2012 [facility] Diastolic (mm Hg) 68 11/15/2012 [facility] Respitory Rate 18 11/15/2012 [facility] Heart Rate 66 11/15/2012 [facility] Respitory Rate 20 11/15/2012 [facility] Heart Rate 89 11/15/2012 [facility] Temperature Oral (F) 99.2 F 11/15/2012 [facility] Systolic (mm Hg) 100 11/15/2012 [facility] Diastolic (mm Hg) 61 11/15/2012 [facility] Weight 59.091 11/15/2012 [facility] Height 172.72 cm 11/15/2012 [facility] Encounters Location Location Details Encounter Type Encounter Number Reason For Visit Attending Provider ADM Date DC Date Status Source [facility] Emergency [id number] CHUCK POPAT 11/14/2012 11/15/2012 Discharged [facility] Emergency [id number] Lonnie Leonsoff 05/12/2018 05/12/2018 [facility] Procedures No Data Provided for This Section Assessment and Plan No Data Provided for This Section Plan of Care No Data Provided for This Section Social History Social History Date Source Social History TypeResponse Smoking Status Former smoker; Type: Cigarettes; Exposure to Tobacco Smoke None; Cigarette Smoking Last 365 Days No; Reg Smoking Cessation Counseling No entered on: 05/12/18 05/12/2018 [facility] Family History No Data Provided for This Section Advance Directives No Data Provided for This Section Functional Status No Data Provided for This Section
--- OUTSIDE RECORDS SUMMARY | 2019-08-13 21:33 | XMS REPORT ---
Author Author [facility] t Organization [facility] Address [address] [place] [address] Phone Unavailable Care Team Providers Care Car Sander Name Role Phone Emelina Oviedo MD Attphys Doctor Unassigned, Name No Attphys Unavailable Mir NORIEGA, Robbie Suh Attphys Unavailable Sean Buckley Attphys Payers Payer Name Policy Type Policy Number Effective Date Expiration Date S ource Problems Condition Name Condition Details Condition Category Status Onset Date Resolution Date Last Treatment Date Treating Clinician Comments Source VOMITING / 9WK PREG VOMI TING / 9WK PREG Active 05/11/2018 [facility] Active 2018-05-11 00:00:00 2018-05-23 14:22:00 [facility] HEADACHE HEAD ACHE Active 08/15/2012 [facility] Active 2012-08-15 05:10:00 2012-11-15 04:44:00 [facility] Migraine (disorder) Migr eulalia (disorder) Resolved Problem 05/14/2018 [facility] Problem Resolved 2018-05-14 23:50: 54 [facility] Migraine Migr eulalia Resolved Problem 11/17/2012 [facility] Problem Resolved 2012-11-17 21:46:55 [facility] Headache Head ache 05/12/2018 05/14/2018 [facility] Problem 2018-05-12 06:00:00 2018-05-14 23:50:54 2018-05-14 23:50:54 [facility] Other specified disorders of amniotic fl uid and membranes, unspecified trimester, not applicable or unspecified Other specified disorders of amniotic fluid and membranes, unspecified trimester, not applicable or unspecified 05/12/2018 05/14/2018 [facility] Problem 2018-05-12 06:00:00 2018-05-14 23:50:54 2018-05-14 23:50:54 [facility] Allergies, Adverse Reactions, Alerts Allergy Name Allergy Type Status Severity Reaction(s) Onset Date Inacti ve Date Treating Clinician Comments Source erythromycin base DA Active [place] 2019-05-16 00:00:00 [facility] erythromycin base DA Active [place] 2013-12-17 00:00:00 [facility] erythromycin erythromycin Active [facility] Social History Smoking Status Start Date Stop Date Source Social History 2018-05-12 12:04:27 2018-05-12 12:04:27 [facility] Medications Ordered Medication Name Filled Medication Name Start Date Stop Da te Current Medication? Ordering Clinician Indication Dosage Frequency Signature (SIG) Comments Components Source Acetaminophen 325 MG Oral Tablet [Tylenol] 2018-05-12 15:48:00 Yes 325 mg = 1 tab, PO, Q4H, PRN Pain, X 10 day, # 12 tab, 0 Refill(s) [facility] Dextrose 5% with 0.9% NaCl IV 1,000 mL 2018-05-12 13:06:00 No 1,000 mL, Rate: 150 ml/hr, Infuse over: 6.7 hr, Route: IV, Dosing Weight 65.909 kg, Total Volume: 1,000, Start date: 05/12/18 7:06:00 SINGLE ENDING MACHINE OPERATOR, Duration: 30 day, Stop date: 06/11/18 7:05:00 CDT, 1.79, m2 [facility] Reglan 2018-05-12 11:33:00 No 5 mg, Route: IVP, Drug form: INJ, ONCE, Dosing Weight 65.909, kg, Priority: STAT, Start date: 05/12/18 5:33:00 SINGLE ENDING MACHINE OPERATOR, Stop date: 05/12/18 5:33:00 SINGLE ENDING MACHINE OPERATOR [facility] NS (Bolus) IV 2018-05-12 11:33:00 No 1,000 mL, 1,000 ml/hr, Infuse Over: 1 hr, Route: IV, ONCE, Priority: STAT, Dosing Weight 65.909 kg, Start date: 05/12/18 5:33:00 SINGLE ENDING MACHINE OPERATOR, Stop date: 05/12/18 5:33:00 SINGLE ENDING MACHINE OPERATOR [facility] NS (Bolus) IV 2018-05-12 11:32:00 No 1,000 mL, 1,000 ml/hr, Infuse Over: 1 hr, Route: IV, ONCE, Priority: STAT, Dosing Weight 65.909 kg, Start date: 05/12/18 5:32:00 SINGLE ENDING MACHINE OPERATOR, Stop date: 05/12/18 5:32:00 SINGLE ENDING MACHINE OPERATOR [facility] Tylenol 2018-05-12 09:58:00 No 1,000 mg, Route: PO, Drug form: TAB, ONCE, Dosing Weight 65.909, kg, Priority: STAT, Start date: 05/12/18 3:58:00 SINGLE ENDING MACHINE OPERATOR, Stop date: 05/12/18 3:58:00 SINGLE ENDING MACHINE OPERATOR [facility] Zofran 2018-05-12 09:58:00 No 4 mg, Route: IVP, Drug form: INJ, ONCE, Dosing Weight 65.909, kg, Priority: STAT, Start date: 05/12/18 3:58:00 SINGLE ENDING MACHINE OPERATOR, Stop date: 05/12/18 3:58:00 SINGLE ENDING MACHINE OPERATOR [facility] naproxen 500 mg oral tablet 2012-11-15 08:06:43 Ye s Christion Anthony Rice 500 mg, 1 tab, PO, BID, PRN, 30 tab, Pain, Subs titution Allowed [facility] [place] 7.5/325 oral tablet 2012-11-15 08:06:27 Yes Ch ristion Anthony Rice 1-2 tab, PO, Q4-6H, PRN, 30 tab, Pain, Substitution Al lowed, Maintenance [facility] Ceftin 250 mg oral tablet 2012-11-15 08:05:49 Yes Ch ristion Anthony Rice 500 mg, 2 tab, PO, BID, 20 tab, Substitution Allowed [facility] Bactrim DS oral tablet 2012-11-15 08:05:27 Yes Christion Anthony Rice 1 tab, PO, BID, 28 tab, Substitution Allowed, Maintenance [facility] Rocephin 2012-11-15 07:52:00 No Christion Anthony Rice 1 gm, Route: IVPB, Drug form: PDR/INJ, ONCE, Dosing Weight 59.091, kg, Priority: STAT, Start date: 11/15/12 2:52:00, Stop date: 11/15/12 2:52:00 [facility] ketorolac 2012-11-15 07:52:00 No Carissa Cruz Rice 30 mg, Route: IVP, Drug form: INJ, ONCE, Dosing Weight 59.091, kg, Priority: STAT, Start date: 11/15/12 2:52:00, Stop date: 11/15/12 2:52:00 [facility] Benadryl 2012-11-15 07:52:00 No Carissa Mataory Rice 12.5 mg, Route: IVP, ONCE, Dosing Weight 59.091, kg, Priority: STAT, Start date: 11/15/12 2:52:00, Stop date: 11/15/12 2:52:00 [facility] Reglan 2012-11-15 07:52:00 No Carissa Mataory Rice 10 mg, Route: IVP, Drug form: INJ, ONCE, Dosing Weight 59.091, kg, Priority: STAT, Start date: 11/15/12 2:52:00, Stop date: 11/15/12 2:52:00 [facility] potassium chloride 2012-11-15 07:38:00 No Carissa kennedy Rice 40 mEq, Route: PO, Drug form: ERTAB, ONCE, Dosing Weight 59.091, kg, Priority: STAT, Start date: 11/15/12 2:38:00, Stop date: 11/15/12 2:38:00 [facility] ondansetron 2012-11-15 06:31:00 No Dhavalkindra Cruz Ri ce 4 mg, Route: IVP, Drug form: INJ, ONCE, Dosing Weight 59.091, kg, Priority: STAT, Start date: 11/15/12 1:31:00, Stop date: 11/15/12 1:31:00 [facility] Sodium Chloride 0.9% (Bolus) IV 1,000 mL 2012-11-15 06:31: 00 No Carissa Cruz Rice 1,000 mL, Rate: 1,000 ml/hr, Infuse over: 1 hr, Route: IV, Dosing Weight 59.091 kg, Total Volume: 1,000, Priority: STAT, Start date: 11/15/12 1:31:00, Duration: 1 doses or times, Stop date: 11/15/12 2:30:00, Bolus DoseBolus Dose [facility] morphine Sulfate 2012-11-15 06:31:00 No Carissa Coffey 4 mg, Route: IVP, Drug form: INJ, ONCE, Dosing Weight 59.091, kg, Priority: STAT, Start date: 11/15/12 1:31:00, Stop date: 11/15/12 1:31:00 [facility] Tylenol 2012-11-15 02:10:00 No Alex Art 975 mg, Route: PO, ONCE, Dosing Weight 59.091, kg, Priority: STAT, Start date: 11/14/12 21:10:00, Stop date: 11/14/12 21:10:00 [facility] Vital Signs Vital Name Observation Time Observation Value Comments Source Heart Rate 2018-05-12 16:32:00 [facility] Respitory Rate 2018-05-12 16:32:00 [facility] Systolic (mm Hg) 2018-05-12 16:32:00 [facility] Diastolic (mm Hg) 2018-05-12 16:32:00 [facility] Temperature Oral (F) 2018-05-12 16:32:00 99.4 F [facility] Systolic (mm Hg) 2018-05-12 14:10:00 [facility] Diastolic (mm Hg) 2018-05-12 14:10:00 [facility] Heart Rate 2018-05-12 14:10:00 [facility] Respitory Rate 2018-05-12 14:10:00 [facility] Systolic (mm Hg) 2018-05-12 13:05:00 [facility] Diastolic (mm Hg) 2018-05-12 13:05:00 [facility] Heart Rate 2018-05-12 13:05:00 [facility] Respitory Rate 2018-05-12 13:05:00 [facility] Temperature Oral (F) 2018-05-12 13:05:00 98.1 F [facility] Temperature Oral (F) 2018-05-12 11:25:00 98.3 F [facility] Weight 2018-05-12 08:32:00 [facility] Height 2018-05-12 08:32:00 172.72 cm [facility] BMI Calculated 2018-05-12 08:32:00 [facility] Respitory Rate 2012-11-15 09:30:00 [facility] Heart Rate 2012-11-15 09:30:00 [facility] Temperature Oral (F) 2012-11-15 09:30:00 98.2 F [facility] Systolic (mm Hg) 2012-11-15 09:30:00 [facility] Diastolic (mm Hg) 2012-11-15 09:30:00 [facility] Systolic (mm Hg) 2012-11-15 07:37:00 [facility] Temperature Oral (F) 2012-11-15 07:37:00 98.4 F [facility] Diastolic (mm Hg) 2012-11-15 07:37:00 [facility] Respitory Rate 2012-11-15 07:37:00 [facility]ast Heart Rate 2012-11-15 07:37:00 [facility] Respitory Rate 2012-11-15 03:49:00 [facility] Heart Rate 2012-11-15 03:49:00 [facility] Temperature Oral (F) 2012-11-15 03:49:00 99.2 [facility] Systolic (mm Hg) 2012-11-15 03:49:00 [facility] Diastolic (mm Hg) 2012-11-15 03:49:00 [facility] Weight 2012-11-15 02:07:00 [facility] Height 2012-11-15 02:07:00 172.72 cm [facility] Procedures This patient has no known procedures. Encounters Start Date/Time End Date/Time Encounter Type [facility] Encounter ID Source 2019-06-07 00:00:00 2019-06-07 00:00:00 Telephone Emelina Ramirez [facility] [place] [id number] 2019-05-14 00:00:00 2019-05-14 00:00:00 Orders Only D octor Unassigned, Newcomb [facility] [id number] 2019-05-02 00:00:00 2019-05-02 00:00:00 Orders Only D octor Unassigned, Newcomb [facility] [id number] 2019-04-15 00:00:00 2019-04-15 00:00:00 Telephone Angeli Hester [facility] [place] [id number] 2019-03-08 00:00:00 2019-03-08 00:00:00 Patient Secure Msg Angeli Hester [facility] [place] [id number] 2018-12-03 00:00:00 2018-12-03 00:00:00 Telephone Angeli Hester [facility] [place] [id number] 2018-05-12 08:20:00 2018-05-12 16:30:00 Emergency MHIEALT [facility] [id number] [facility] 2018-05-12 02:20:00 2018-05-12 10:30:00 Outpatient Lonnie Buckley [facility] [id number] 2012-11-14 20:56:00 2012-11-15 05:15:00 Emergency MHIEAL T [facility] [id number] [facility] Results Test Description Test Time Test Comments Results Result Comments Source - CT ABD PELVIS W/CONT 2019-05-16 04:07:00 Calvin e: KAVYA AKHTAR [facility] : 1980 Age/S: 38 / F [address] [place] [address] Unit #: [id number] Loc: [place] [address] Phys: Olive Browne NP Acct: [id number] Dis Date: Status: REG ER PHONE #: [phone] Exam Date: 05/16/2019 0307 FAX #: [phone] Reason: BL flank pain, R>L, dysuria, Sepsis EXAMS: CPT CODE: [id number] CT ABD PELVIS W/CONT 36102 EXAM: CT, CT ABDOMEN PELVIS W CONTRAST: 05/16/2019, 0305 hours HISTORY: BL flank pain, R>L, dysuria, Sepsis COMPARISON: None available. TECHNIQUE: Helical imaging was performed from diaphragm through the symphysis with coronal and sagittal reconstructions. CT imaging was performed with exposure control parameters to reduce radiation dose. All CT scans at this location are performed using dose optimization techniques as appropriate to perform exam including the following: * Automated exposure control * Adjustment of the mA and /or kV according to patient size (this includes techniques or standardized protocols for targeted exams where dose is matched to indication/reason for exam; extremities or head) * Use of iterative reconstruction technique IV CONTRAST: 100 cc Isovue. GI CONTRAST: No CT Radiation Dose: DLP = 231.72 mGy-cm FINDINGS: LOWER CHEST: Mild dependent atelectasis in the posterior lung bases. LIVER: Unremarkable. GALLBLADDER: Unremarkable. INTRAHEPATIC BILE DUCT AND EXTRAHEPATIC BILE DUCT: Unremarkable. PANCREAS: Unremarkable. SPLEEN: Unremarkable. ADRENALS: Unremarkable. KIDNEYS AND URETERS: Heterogenous enhancement of the kidney with multiple peripheral hypodensities. Fatty stranding around the right kidney and right ureter.. STOMACH: Unremarkable. BOWEL: The small bowel loops in the abdomen and pelvis appear unremarkable. Moderate fecal load in the colon APPENDIX: Not seen on the exam. Surgical clips in the right lower flank, Probable prior appendectomy. PERITONEUM AND RETROPERITONEUM: No ascites or free air. There is no aortic aneurysm or dissection. Minimal calcified plaque in abdominal aorta PAGE 1 Signed Report (CONTINUED) Name: KAVYA AKHTAR [facility] : 1980 Age/S: 38 / F [address] [place] [address] Blvd Unit #: [id number] Loc: [place] [address] Phys: Olive Browne ELECTRICAL SUBCONTRACTOR Acct: [id number] Dis Date: Status: REG ER PHONE #: [phone] Exam Date: 05/16/2019 030 FAX #: [phone] Reason: BL flank pain, R>L, dysuria, Sepsis EXAMS: CPT CODE: [id number] CT ABD PELVIS W/CONT 65395 <Continued> LYMPH NODES: Unremarkable. PELVIS: No pelvic mass or adenopathy. Uterus is anteverted and unremarkable. Ovaries are not well seen. BLADDER: Thickened urinary bladder wall. OSSEOUS STRUCTURES: No acute abnormality seen. SOFT TISSUES: A small fat-containing umbilical hernia seen.. IMPRESSION: 1. Findings suggestive of right upper urinary tract infection with right pyelonephritis. No hydronephrosis seen bilaterally. 2. Thickened urinary bladder wall. Please correlate for cystitis. SL: PARI at 0407 Reported and signed by: Taiwo Nazario M.D. CC: Olive Browne NP Technologist:Darrell Brock, RT(R)(CT) CTDI: DLP: Trnscb Date/Time: 05/16/2019 (406) [email or web address] Orig Print D/T: S: 05/16/2019 (041) PAGE 2 Signed Report PROCALCITONIN (PCT) 2019-05-16 03:40:00 Test Item PROCALCITONIN (PCT) (test code = PROCAL) 0.32 ng/mL 0.00-0.05 H PROCALCITONIN (PCT) NORMAL RANGE (ADULT): <0.05 NG/ML. * a concentration <0.5 ng/mL represents a low risk of severe sepsis and/or septic shock.* a concentration >2 ng/mL represents a high risk of severe sepsis and/or septic shock.Nevertheless, concentrations <0.5 ng/mL do not exclude aninfection, on account of localized infections (withoutsystemic signs) which can be associated with such lowconcentrations, or a systemic infection in its initialstages (< 6 hours). Furthermore, increased procalcitonincan occur without infection. PCT concentrations between 0.5and 2.0 ng/mL should be interpreted taking into account thepatient's history. It is recommended to retest PCT within6-24 hours if any concentrations <2 ng/mL are obtained. LACTIC [id number] 02:51:00* Test Item Value Reference Range Interpretation Comments LACTIC ACID (test code = LACT) 0.8 mmol/L 0.4-1.9 N BASIC METABOLIC [id number] 02:46:00* Test Item Value Reference Range Interpretation Comments SODIUM (test code = NA) 136 mEq/L 134-147 N POTASSIUM (test code = K) 3.5 mEq/L 3.4-5.0 N CHLORIDE (test code = CL) 103 mEq/L 100-108 N CARBON DIOXIDE (test code = CO2) 24 mEq/L 21-33 N ANION GAP (test code = GAP) 13 0-20 N GLUCOSE (test code = GLU) 108 mg/dL 70-110 N BLOOD UREA NITROGEN (test code = BUN) 8 mg/dL 7-18 N GLOMERULAR FILTRATION RATE (test code = GFR) 93.2 105-110 L Units of measure = ml/min/1.73 m2 CREATININE (test code = CREAT) 0.7 mg/dL 0.6-1.3 N CALCIUM (test code = CA) 8.8 mg/dL 8.0-10.5 N HEPATIC FUNCTION [id number] 02:46:00* Test Item Value Reference Range Interpretation Comments TOTAL PROTEIN (test code = PROT) 7.4 g/dL 6.4-8.2 N ALBUMIN (test code = ALB) 3.20 g/dL 3.4-5.0 L BILIRUBIN TOTAL (test code = BILT) 0.4 MG/DL <1.5 N BILIRUBIN DIRECT (test code = BILD) 0.20 MG/DL 0.0-0.30 N BILIRUBIN INDIRECT (test code = BILIND) 0.20 MG/DL SGOT/AST (test code = AST) 6 IUnit/L 15-37 L SGPT/ALT (test code = ALT) 13 IUnit/L 15-65 L ALKALINE PHOSPHATASE TOTAL (test code = ALKP) 82 IUnit/L 20-125 N BASIC METABOLIC [id number] 02:42:00* Test Item Value Reference Range Interpretation Comments SODIUM (test code = NA) 136 mEq/L 134-147 N POTASSIUM (test code = K) 3.5 mEq/L 3.4-5.0 N CHLORIDE (test code = CL) 103 mEq/L 100-108 N CARBON DIOXIDE (test code = CO2) 24 mEq/L 21-33 N ANION GAP (test code = GAP) 13 0-20 N GLUCOSE (test code = GLU) 108 mg/dL 70-110 N BLOOD UREA NITROGEN (test code = BUN) 8 mg/dL 7-18 N GLOMERULAR FILTRATION RATE (test code = GFR) 105-110 CREATININE (test code = CREAT) mg/dL 0.6-1.3 CALCIUM (test code = CA) 8.8 mg/dL 8.0-10.5 N HEPATIC FUNCTION [id number] 02:42:00* Test Item Value Reference Range Interpretation Comments TOTAL PROTEIN (test code = PROT) g/dL 6.4-8.2 ALBUMIN (test code = ALB) g/dL 3.4-5.0 BILIRUBIN TOTAL (test code = BILT) MG/DL <1.5 BILIRUBIN DIRECT (test code = BILD) MG/DL 0.0-0.30 SGOT/AST (test code = AST) IUnit/L 15-37 SGPT/ALT (test code = ALT) IUnit/L 15-65 ALKALINE PHOSPHATASE TOTAL (test code = ALKP) IUnit/L 20-125 HCG SERUM [id number] 02:40:00* Test Item Value Reference Range Interpretation Comments HCG SERUM QUAL (test code = HCGQL) SERUM NEGATIVE NEGATIVE UA RFLX MICR CULT IF [id number] 02:36:00* Test Item Value Reference Range Interpretation Comments UA COLOR (test code = COLU) YELLOW YEL/STRAW UA APPEARANCE (test code = APPU) CLOUDY CLEAR A UA GLUCOSE DIPSTICK (test code = DGLUU) NEGATIVE NEGATIVE UA BILIRUBIN DIPSTICK (test code = BILU) NEGATIVE NEGATIVE UA KETONE DIPSTICK (test code = KETU) NEGATIVE NEGATIVE UA SPECIFIC GRAVITY (test code = SGU) 1.015 1.005-1.030 N UA BLOOD DIPSTICK (test code = LILLIAN) 4+ NEGATIVE A UA PH DIPSTICK (test code = CLEMENTINE) 6.0 5.0-7.0 N UA PROTEIN DIPSTICK (test code = PROU) 3+ NEGATIVE A UA UROBILINIOGEN DIPSTICK (test code = URO) 0.2 mg/dL 0.2-1.0 UA NITRITE DIPSTICK (test code = RANJIT) POSITIVE NEGATIVE A UA LEUKOCYTE ESTERASE DIPSTICK (test code = LEUU) 3+ NEGA TIVE A UA WBC (test code = WBCU) >50 WBC/HPF 0-3 A UA RBC (test code = RBCU) >50 RBC/HPF 0-3 A UA WBC NO REFLEX (test code = WBCUCL) >50 WBC/HPF 0-3 A UA BACTERIA (test code = BACU) 2+ /HPF NONE SEEN A UA SQUAMOUS CELLS (test code = SQU) 0-5 /HPF NONE SEEN UA MUCUS (test code = MUCU) 1+ /LPF NONE SEEN Indication for culture: Sev. Sepsis-no other src Dysuria/Frequency T emperature > 100.4 F Flank PainSpecimen Description: CLEAN CATCHUA RFLX MICR CULT IF [id number] 02:33:00* Test Item Value Reference Range Interpretation Comments UA COLOR (test code = COLU) YELLOW YEL/STRAW UA APPEARANCE (test code = APPU) CLOUDY CLEAR A UA GLUCOSE DIPSTICK (test code = DGLUU) NEGATIVE NEGATIVE UA BILIRUBIN DIPSTICK (test code = BILU) NEGATIVE NEGATIVE UA KETONE DIPSTICK (test code = KETU) NEGATIVE NEGATIVE UA SPECIFIC GRAVITY (test code = SGU) 1.015 1.005-1.030 N UA BLOOD DIPSTICK (test code = LILLIAN) 4+ NEGATIVE A UA PH DIPSTICK (test code = CLEMENTINE) 6.0 5.0-7.0 N UA PROTEIN DIPSTICK (test code = PROU) 3+ NEGATIVE A UA UROBILINIOGEN DIPSTICK (test code = URO) 0.2 mg/dL 0.2-1.0 UA NITRITE DIPSTICK (test code = RANJIT) POSITIVE NEGATIVE A UA LEUKOCYTE ESTERASE DIPSTICK (test code = LEUU) 3+ NEGA TIVE A UA WBC (test code = WBCU) WBC/HPF 0-3 UA RBC (test code = RBCU) RBC/HPF 0-3 Indication for culture: Sev. Sepsis-no other src Dysuria/Frequency T emperature > 100.4 F Flank PainSpecimen Description: CLEAN CATCHCBC W/AUTO [id number] 02:32:00* Test Item Value Reference Range Interpretation Comments WHITE BLOOD CELL (test code = WBC) 12.09 x10 3/uL 4.5-11.0 H RED BLOOD CELL (test code = RBC) 4.26 x10 6/uL 3.54-5.02 N HEMOGLOBIN (test code = HGB) 11.5 g/dL 11.0-15.0 N HEMATOCRIT (test code = HCT) 37.5 % 33.0-45.0 N MEAN CELL VOLUME (test code = MCV) 88.0 fL 81.0-99.0 N MEAN CELL HGB (test code = MCH) 27.0 pg 27.0-33.0 N MEAN CELL HGB CONCETRATION (test code = MCHC) 30.7 g/dL 33.0-37. 0 L RED CELL DISTRIBUTION WIDTH CV (test code = RDW) 16.7 % 11.5- 14.5 H RED CELL DISTRIBUTION WIDTH SD (test code = RDW-SD) 53.5 fL 37 .0-54.0 N PLATELET COUNT (test code = PLT) 395 x10 3/uL 150-400 N MEAN PLATELET VOLUME (test code = MPV) 10.2 fL 7.0-9.0 H NEUTROPHIL % (test code = NT%) 84.1 % 56.0-77.0 H IMMATURE GRANULOCYTE % (test code = IG%) 0.6 % 0.0-2.0 N LYMPHOCYTE % (test code = LY%) 7.6 % 14.0-32.0 L MONOCYTE % (test code = MO%) 7.2 % 4.8-9.0 N EOSINOPHIL % (test code = EO%) 0.2 % 0.3-3.7 L BASOPHIL % (test code = BA%) 0.3 % 0.0-2.0 N NUCLEATED RBC % (test code = NRBC%) 0.0 % 0-0 N NEUTROPHIL # (test code = NT#) 10.17 x10 3/uL 2.0-7.6 H IMMATURE GRANULOCYTE # (test code = IG#) 0.07 x10 3/uL 0.00-0.03 H LYMPHOCYTE # (test code = LY#) 0.92 x10 3/uL 1.0-3.8 L MONOCYTE # (test code = MO#) 0.87 x10 3/uL 0.1-0.8 H EOSINOPHIL # (test code = EO#) 0.02 x10 3/uL 0.0-0.2 N BASOPHIL # (test code = BA#) 0.04 x10 3/uL 0.0-0.2 N NUCLEATED RBC # (test code = NRBC#) 0.00 x10 3/uL 0.0-0.1 N MANUAL DIFF REQUIRED (test code = MDIFF) NO TROPONIN-I [id number] 01:57:00* Test Item Value Reference Range Interpretation Comments TROPONIN-I RAPID (test code = TROPIRAP) 0.01 ng/mL 0.00-0.08 N Performed by certified bobbin cleaning machine operator at [facility] Negative: <= 0.08 Positive: >= 0.09An elevated troponin value alone is not sufficient todiagnose a myocardial infarction. Rather, the patient sclinical presentation (history, physical exam) and ECGshould be used in conjunction with troponin in thediagnostic evaluation of suspected myocardial infarction. Aserial sampling protocol is recommended to facilitate the identification of temporal changes in troponin levels characteristic of [place]. - XR CHEST 2 [id number] 01:21:00 FAX: Olive Browne NP [phone] [place]: St: PRE Name: Leeann NOELRobbieKAVYA [facility] : [birth year] Age/S: 38/F [address] [place] [address] Unit #: [id number] Loc: [place] [address] Phys: Olive Browne NP Acct: [id number] Dis Date: Status: PRE ER PHONE #: [phone] Exam Date: 05/16/2019101 FAX #: [phone] Reason: Fever EXAMS: CPT CODE: [id number] XR CHEST 2 V 40930 EXAM: CR, XR chest 2 views: 2019, 0052 hours HISTORY: Fever TECHNIQUE: Frontal a nd lateral chest radiographs are obtained. COMPARISON: 02/23/2006. FINDINGS: Trachea is in midline. Heart is normal in size. Pulmonary vascularity is not congested. No airspace consolidation, pneum othorax or pleural effusion is seen. Osseous structures are stable. IMPRESSION: No acute cardiopulmonary disease seen. SL:[JSADIS] Electronically Signed by Aleena Nazario on 05/16 at 0121 Reported and signed by: Taiwo Nazario M.D. CC: Olive Browne NP Technologist: NURIA Ortiz) Dixon Rae te/Time/By: 05/16/2019 (0121) : By: [email or web address] Orig Print D/T: S: 05/16 (0125) PAGE 1 Signed Report CHEM [id number] 11:03:0072 [facility] [id number] 11:03:003.7 [facility] [id number] 11:03:00* Test Item Value Reference Range Interpretation Comments B/C Ratio (test code = B/C Ratio) 18 1 6-25 [facility] [id number] 11:03:00* Test Item Value Reference Range Interpretation Comments A/G Ratio (test code = A/G Ratio) 0.9 1 0.7-1.6 [facility] [id number] 11:03:0010.6MH [facility] [id number] 11:03:0056 [facility] [id number] 11:03:0012MH [facility] PANEL 2018-05-12 11:03:0013MH [facility] [id number] 11:03:003.4MH [facility] CHEM [id number] 11:03[facility] [id number] 11:03:007.1MH [facility] [id number] 11:03:79344SZ [facility] [id number] 11:03:0081MH [facility] [id number] 11:03:008MH [facility] PANEL 2018-05-12 11:03:000.4MH [facility] [id number] 11:03:0023MH [facility] CHEM [id number] 11:03:32400ZN [facility] [id number] 11:03:86297RP [facility] [id number] 11:03:000.44MH [facility] [id number] 11:03:003.6MH AipxsgdwnAXBEUGWJNAZOQ2835-93-20 11:03:7658082[facility] GJBALDGJPW8680-80-51 11:03:000.1MFloating Hospital For ChildrenAsdplxbonXTYOLEUTPV2681-94-09 11:03:000.9[facility] CareQjuhxbpcuZFORTXJASL9946-98-75 11:03:000.3MFloating Hospital For ChildrenLhywzyrksGJUXNWKJPP1283-94-69 11:03:008.2M HkqsezhaaMFNYQURPKX9308-14-94 11:03:002.2MFloating Hospital For ChildrenHEMATOLOGY 2018-05-12 11:03:000.7[facility] CareWikmmngozADWDPZALYS3722-45-38 11:03:0072.8[facility] MRSWQANXIR2720-39-48 11:03:0020.0[facility] CareJusctmjyhAZGSDOVAKR9578-10-03 11:03:006.0[facility] CareSdxmjoiskRKWYRZAAPI0557-78-90 11:03:004.12[facility] CareCcuabfrdbEGZLXPNSVM0827-90-56 11:03:0037.3MFloating Hospital For ChildrenDjugtcyzkBASHKCUXYK7011-57-70 11:03:0012.6MFloating Hospital For ChildrenHEMATOLOGY 2018-05-12 11:03:008.4[facility] CareFgainciloVEUEUODEDE8937-37-81 11:03:78405YHWalden Behavioral Care LZFXKGGYCW8643-57-67 11:03:0015.1MFloating Hospital For ChildrenUlhiraaijLRWMWFMJOB3918-71-38 11:03:0033.9[facility] CareHosltbqenMZMFTNEJVT2921-46-32 11:03:0011.2MFloating Hospital For ChildrenDzntrpvekNKCROCVNGE8128-63-79 11:03:00* Test Item Value Reference Range Interpretation Comments MCH (test code = MCH) 30.6 pg 27.0-31.0 [facility] CareEqmgqekrrZMQRBZUPWG0461-30-50 11:03:0090.4 [facility] 2018-05-12 11:03:001 [facility] QNUMF7428-14-05 11:03:004[facility] URINE AND ORTIX5979-65-81 11:03:00Trace *ABN*(05/12/18 5:03 AM) [facility] RSTKI1444-19-30 11:03:00Negative (05/12/18 5:03 AM) [facility] OOACV1443-30-87 11:03:00Negative (05/12/18 5:03 AM) [facility] 2018-05-12 11:03:00Negative *NA*(05/12/18 5:03 AM)[facility] STOOL 2018-05-12 11:03:00Yellow *NA*(05/12/18 5:03 AM)[facility] 2018-05-12 11:03:00* Test Item Value Reference Range Interpretation Comments UA Spec Grav (test code = UA Spec Grav) 1.018 1 [facility] [id number] 11:03:00Slight *ABN*(05/12/18 5:03 AM)[facility] QQMSF7619-90-84 11:03:00Negative (05/12/18 5:03 AM)[facility] DHHDB5464-68-76 11:03:00* Test Item Value Reference Range Interpretation Comments UA pH (test code = UA pH) 6.0 1 5.0-8.0 [facility] ZMRHX2117-85-34 11:03:00Negative *NA*(05/12/18 5:03 AM) BqpsxyweeUMMCIVWQE3709-18-90 06:50:0091 WfuxllrzkBSFJVHSDH3953-01-80 06:50:00 0.7MH EtudzcqhuZBQIDDVWV6124-38-37 06:50:0014.0 CaeafovpkZIKFDIURA7278-44-41 06:50:0012 IwggbsmchMXHYDNHIO2424-25-91 06:50:004.1MH SoutheastCHEMISTRY 2012-11-15 06:50:000.3MH XxlyvzmscAOOLMGRZA2423-65-23 06:50:0015 [facility] NVBLNZYBK3583-66-54 06:50:002.7 UxwxpzzciJFMWVCESF1674-09-51 06:50:0018 LvdixgwjoSBLSDRZBN8317-02-34 06:50:0096 CogfegiyaMLRHDTJPZ3671-02-86 06:50:00 6.8MH JkqyvhddgSNXXDKFVF2031-43-99 06:50:0097 FnruragbwXFEYMFRPT3813-30-59 06:50:0026 AjunzkpqwQJINFAIEW7446-54-35 06:50:008.4 SoutheastCHEMISTRY 2012-11-15 06:50:0010 LdmkpsvbyCZVIEFNUF0533-53-71 06:50:000.8 [facility] UZJZRADKJ2384-06-68 06:50:51820QL LqdqqxlavLHXTGKFRB9324-63-21 06:50:41647DA KjaskslpwVGTOTRPUS8625-41-36 06:50:003.0[facility] CareRzgscaizeJPLOHNKWC1091-10-35 06:50:00 139 TwzcwuhkzXXNCLHMXT2564-76-98 06:50:00Negative (11/15/2012 01:50:00) [facility] CareWnytxzdiaQNOIGTWKQT8931-33-33 06:50:0037.5 XlumwcadpIQLMIKGUMH5247-23-46 06:50:0012.2M YekqqzqdwNDSRQPKQOD1358-43-72 06:50:009.4 [facility]HEMATOLOGY 2012-11-15 06:50:003.89[facility] CareMstqfxxpkWWZCPXWVFE0962-38-01 06:50:008.8[facility] LMZGVSOTIQ8482-45-53 06:50:90157YDWalden Behavioral CareCjynagqneCZNYDHZGBP0746-27-34 06:50:00* Test Item Value Reference Range Interpretation Comments MCH (test code = MCH) 31.2 pg 27.0-31.0 H NhgtroorhHCJXCXJTWD0665-13-05 06:50:0096.4[facility] CareBnoscrbvjRKGAYQNUHG9537-66-36 06:50:0013.1MFloating Hospital For ChildrenRxjvqcpgkFAAOPAMJRU7372-09-50 06:50:0032.4 [facility]HEMATOLOGY 2012-11-15 06:50:006.5[facility] CareHlrvnichuZQDNLRQDGR7083-15-23 06:50:001.7[facility] AQWILYCSBV5330-46-66 06:50:00Normal (11/15/2012 01:50:00) [facility] JKBZKHPPEV8153-69-13 06:50:00Clumped (11/15/2012 01:50:00) [facility] KKIPMRRAQO7668-22-43 06:50:0011.0[facility] CareOeyelucwvWYQEEHWWYT3627-86-73 06:50:001.2MFloating Hospital For ChildrenJzeguronoABCLQXZBGN3548-11-46 06:50:0069.2MFloating Hospital For ChildrenRddwcvwicFKCZKWHDHD8119-72-29 06:50:000.1MFloating Hospital For ChildrenUtjyzndrvZULGKBTKJC2402-41-17 06:50:001.0 [facility]HEMATOLOGY 2012-11-15 06:50:000.1MFloating Hospital For ChildrenVlqzgwgigXIDMWVXGLU3101-51-02 06:50:000.0[facility] QSAATJQFKT0339-69-43 06:50:0018.5[facility] CareAorwwpzfiGWZVMWZXYZ7339-66-85 06:50:00 Negative *NA*(11/15/2012 01:50:00) [facility]OnnexrxduHYALOECMAB3312-12-65 06:50:00 Negative mg/dL *NA*(11/15/2012 01:50:00) [facility] HospitalGqtygamcoPMQLFXBFWA4903-67-88 06:50:00Negative mg/dL *NA*(11/15/2012 01:50:00) [facility]ALYS 2012-11-15 06:50:001.009[facility] HospitalRjkkrufqeOIMGUWDGGY5042-67-53 06:50:00Negative mg/dL (11/15/2012 01:50:00) [facility] HospitalTyyjrxmjuXMOUZMKDJK4493-89-40 06:50:006.0[facility] YYZOILDPQR6216-00-78 06:50:00Yellow *NA*(11/15/2012 01:50:00) [facility] HospitalBBJAYFELSF5652-88-49 06:50:00Marked *ABN*(11/15/2012 01:50:00) [facility] HospitalKWMZNHVGSC9036-18-85 06:50:002[facility] HospitalGkfmpyaluFYLWTULQHF4905-21-02 06:50:00Small *ABN*(11/15/2012 01:50:00) [facility] HospitalXzsjduphfGAJPAJEZUP3132-90-49 06:50:008[facility] HospitalEcsuyjvgaMYSHONZDYU6841-62-13 06:50:00Many /HPF *ABN*(11/15/2012 01:50:00) [facility] HospitalLgaouvdtfVSJZECRUSG8166-92-69 06:50:00Occasional /LPF *NA*(11/15/2012 01:50:00) [facility] HospitalRdocntfxfQTJLWSSSVE2984-56-86 06:50:00Moderate *ABN*(11/15/2012 01:50:00) [facility] HospitalPsfuozwsuMXTTJINCMV5420-74-29 06:50:00Negative *NA*(11/15/2012 01:50:00) [facility] HospitalTtlypgveqFQVCIMUWLU8845-23-24 06:50:00Negative (11/15/2012 01:50:00) [facility] HospitalPbmvccsyiRHTNDVGYDN8106-06-52 06:50:00Few /LPF *NA*(11/15/2012 01:50:00) [facility]
--- OUTSIDE RECORDS SUMMARY | 2019-08-13 21:33 | XMS REPORT | Summary of Care ---
Author Author [facility] - Health Organization [facility] - Health Address Unknown Phone Unavailable Care Team Providers Care Cloth Tester Quality Name Role Phone Pcp, Patient Does Not Have A PCP [phone] Encounter Details Care Team Description Date Type Department Angeli Hester MD [address] [place] [address] 10/16/2018 Patient Secure [facility]- Feura Bush [address] [facility] [address] [place] [address] Allergies Comments Active Allergy Reactions [...] Description Date Type Specialty Angeli Hester MD [address] [place] [address] [phone] 10/17/2018 Routine Obstetrics & Gyneco logy Visit [...] Plan / Dates Group Medicaid [facility] xxxxxxxxx 2018-P [address] MANAGED MEDICAID HEALTH [facility] [id number] [place] [place], [place] [phone] documented as of this encounter
--- OUTSIDE RECORDS SUMMARY | 2019-08-13 21:33 | XMS REPORT | CCD ---
Author Author KAVYA Hauser [facility] Address Unknown Phone Unavailable Care Team Providers Care Senior Telecommunications Specialist Name Role Phone Nikolas Hudson CP Allergies, Adverse Reactions, Alerts Substance Reaction Status erythromycin Active Problem List Condition Effective Dates Status Migraine Resolved Medications Medication Instructions Start Date End Date Status ondansetron 4 mg, Route: IVP, Drug form: INJ, 11/15/201211/15 Completed ONCE, Dosing Weight 59.091, kg, Priority: STAT, Start date: 11/15/12 1:31:00, Stop date: 11/15/12 1:31:00 Sodium Chloride 0.9% 1,000 mL, Rate: 1,000 ml/hr, Infuse 10/1911/15/2012 Completed (Bolus) IV 1,000 mL over: 1 hr, Route: IV, Dosi ng Weight 59.091 kg, Total Volume: 1,000, Priority: STAT, Start date: 11/15/12 1:31:00, Duration: 1 doses or times, Stop date: 11/15/12 2:30:00, Bolus Dose Bolus Dose morphine Sulfate 4 mg, Route: IVP, Drug form: INJ, 11/15/2012 11/15/2012 Completed ONCE, Dosing Weight 59.091, kg, Priority: STAT, Start date: 11/15/12 1:31:00, Stop date: 11/15/12 1:31:00 potassium chloride 40 mEq, Route: PO, Drug form: 11/15/2012 Completed ERTAB, ONCE, Dosing Weight 59.091, kg, Priority: STAT, Start date: 11/15/12 2:38:00, Stop date: 11/15/12 2:38:00 naproxen 500 mg oral 500 mg, 1 tab, PO, BID, PRN, 30 11/16/19 13 Ordered tablet tab, Pain, Substitution All owed Thurmond 7.5/325 oral 1-2 tab, PO, Q4-6H, PRN, 30 tab, 11/15/2012 11/20/2012 Ordered tablet Pain, Substitution Allowed, Maintenance Ceftin 250 mg oral 500 mg, 2 tab, PO, BID, 20 tab, 11/15/2012 Ordered tablet Substitution Allowed Bactrim DS oral 1 tab, PO, BID, 28 tab, 11/15/2012 11/22/2012 Ordered tablet Substitution Allowed, Maint enance Tylenol 975 mg, Route: PO, ONCE, Dosing 11/14/2012 013 Completed Weight 59.091, kg, Priority: STAT, Start date: 11/14/12 21:10:00, Stop date: 11/14/12 21:10:00 Rocephin 1 gm, Route: IVPB, Drug form: 11/15/2012 3 Completed PDR/INJ, ONCE, Dosing Weight 59.091, kg, Priority: STAT, Start date: 11/15/12 2:52:00, Stop date: 11/15/12 2:52:00 ketorolac 30 mg, Route: IVP, Drug form: INJ, 11/15/201210/19 Completed ONCE, Dosing Weight 59.091, kg, Priority: STAT, Start date: 11/15/12 2:52:00, Stop date: 11/15/12 2:52:00 Benadryl 12.5 mg, Route: IVP, ONCE, Dosing 11/15/201211/15 Completed Weight 59.091, kg, Priority: STAT, Start date: 11/15/12 2:52:00, Stop date: 11/15/12 2:52:00 Reglan 10 mg, Route: IVP, Drug form: INJ, 11/15/201210/19 Completed ONCE, Dosing Weight 59.091, kg, Priority: STAT, Start date: 11/15/12 2:52:00, Stop date: 11/15/12 2:52:00 Vital Signs Most recent to oldest [Reference Range]: 1 2 3 Height 172.72 cm (11/14/2012 21:07:00) Temperature Oral [96.4-99.1 DegF] 98.2 DegF (11/15/2012 04:30:00) 98.4 DegF (11/15/2012 02:37:00) 99.2 DegF *HI* (11/14/2012 22:49:00) Systolic Blood Pressure [90-140 mmHg] 99 mmHg (11/15/2012 04:30:00) 106 mmHg (11/15/2012 02:37:00) 100 mmHg (11/14/2012 22:49:00) Diastolic Blood Pressure [60-90 mmHg] 77 mmHg (11/15/2012 04:30:00) 68 mmHg (11/15/2012 02:37:00) 61 mmHg (11/14/2012 22:49:00) Respiratory Rate [14-20 BRMIN] 20 BRMIN (11/15/2012 04:30:00) 18 BRMIN (11/15/2012 02:37:00) 20 BRMIN (11/14/2012 22:49:00) Peripheral Pulse Rate [60-100 bpm] 72 bpm (11/15/2012 04:30:00) 66 bpm (11/15/2012 02:37:00) 89 bpm (11/14/2012 22:49:00) Weight 59.091 kg (11/14/2012 21:07:00) Results URINALYSIS Most recent to oldest [Reference Range]: 1 UA Turbidity [Clear] Marked *ABN* (11/15/2012 01:50:00) UA Color [Yellow] Yellow *NA* (11/15/2012 01:50:00) UA pH [5.0-8.0] 6.0 (11/15/2012 01:50:00) UA Spec Grav [<=1.030] 1.009 (11/15/2012 01:50:00) UA Glucose [Negative mg/dL] Negative mg/dL *NA* (11/15/2012 01:50:00) UA Blood [Negative] Moderate *ABN* (11/15/2012 01:50:00) UA Ketones [Negative mg/dL] Negative mg/dL *NA* (11/15/2012 01:50:00) UA Protein [Negative mg/dL] Negative mg/dL (11/15/2012 01:50:00) UA Urobilinogen [0.1-1.0 mg/dL] <=1.0 mg/dL *NA* (11/15/2012 01:50:00) UA Bili [Negative] Negative *NA* (11/15/2012 01:50:00) UA Leuk Est [Negative] Small *ABN* (11/15/2012 01:50:00) UA Nitrite [Negative] Negative (11/15/2012 01:50:00) UA WBC [0-5 /HPF] 8 /HPF *HI* (11/15/2012 01:50:00) UA RBC [0-2 /HPF] 2 /HPF (11/15/2012 01:50:00) UA Bacteria [None Seen /HPF] Many /HPF *ABN* (11/15/2012 01:50:00) UA Sq Epi [Few /LPF] Occasional /LPF *NA* (11/15/2012 01:50:00) UA Mucus [None Seen /LPF] Few /LPF *NA* (11/15/2012 01:50:00) CHEMISTRY Most recent to oldest [Reference Range]: 1 Sodium Lvl [135-145 mEq/L] 139 mEq/L (11/15/2012 01:50:00) Potassium Lvl [3.5-5.1 mEq/L] 3.0 mEq/L 1 *CRIT* (11/15/2012 01:50:00) Chloride Lvl [95-109 mEq/L] 102 mEq/L (11/15/2012 01:50:00) CO2 [24-32 mEq/L] 26 mEq/L (11/15/2012 01:50:00) AGAP [10.0-20.0 mEq/L] 14.0 mEq/L (11/15/2012 01:50:00) Creatinine Lvl [0.5-1.4 mg/dL] 0.8 mg/dL (11/15/2012 01:50:00) eGFR 97 mL/min/1.73m2 2 *NA* (11/15/2012 01:50:00) BUN [7-22 mg/dL] 10 mg/dL (11/15/2012 01:50:00) B/C Ratio [6-25] 12 (11/15/2012 01:50:00) Glucose Lvl [70-99 mg/dL] 100 mg/dL 3 *HI* (11/15/2012 01:50:00) Total Protein [6.4-8.4 g/dL] 6.8 g/dL (11/15/2012 01:50:00) Albumin Lvl [3.5-5.0 g/dL] 2.7 g/dL *LOW* (11/15/2012:50:00) Globulin [2.0-4.0 g/dL] 4.1 g/dL *HI* (11/15/2012:50:00) A/G Ratio [0.7-1.6] 0.7 (11/15/2012:50:00) Calcium Lvl [8.5-10.5 mg/dL] 8.4 mg/dL *LOW* (11/15/2012:50:00) ALT [0-65 unit/L] 18 unit/L (11/15/2012:50:00) AST [0-37 unit/L] 15 unit/L (11/15/2012 01:50:00) Alk Phos [39-136 unit/L] 96 unit/L (11/15/2012 01:50:00) Bili Total [0.2-1.3 mg/dL] 0.3 mg/dL (11/15/2012 01:50:00) Lipase Lvl [73-393 unit/L] 91 unit/L (11/15/2012 01:50:00) U Preg [Negative] Negative (11/15/2012 01:50:00) 1Result Comment: Critical Result(s) called to jorge talavera at 11/15/2012 02:23 by/cristal. Read back OK. 2Result Comment: The eGFR is calculated using the [...] be mul tiplied by the estimated BMI. 3Interpretive Data: Adult reference range values reflect the clinical guidelines of the [employer]. HEMATOLOGY Most recent to oldest [Reference Range]: 1 WBC [3.7-10.4 K/CMM] 9.4 K/CMM (11/15/2012:50:00) RBC [4.20-5.40 M/CMM] 3.89 M/CMM *LOW* (11/15/2012:50:00) Hgb [12.0-16.0 g/dL] 12.2 g/dL (11/15/2012:50:00) Hct [36.0-48.0 %] 37.5 % (11/15/2012:50:00) MCV [81.0-99.0 fL] 96.4 fL (11/15/2012:50:00) MCH [27.0-31.0 pg] 31.2 pg *HI* (11/15/2012:50:00) MCHC [32.0-36.0 g/dL] 32.4 g/dL (11/15/2012:50:00) RDW [11.5-14.5 %] 13.1 % (11/15/2012:50:00) Platelet [133-450 K/CMM] 291 K/CMM (11/15/2012:50:00) MPV [7.4-10.4 fL] 8.8 fL (11/15/2012:50:00) Segs [45.0-75.0 %] 69.2 % (11/15/2012:50:00) Lymphocytes [20.0-40.0 %] 18.5 % *LOW* (11/15/2012:50:00) Monocytes [2.0-12.0 %] 11.0 % (11/15/2012:50:00) Eosinophils [0.0-4.0 %] 1.2 % (11/15/2012:50:00) Basophils [0.0-1.0 %] 0.1 % (11/15/2012 01:50:00) Segs-Bands # [1.5-8.1 K/CMM] 6.5 K/CMM (11/15/2012 01:50:00) Lymphocytes # [1.0-5.5 K/CMM] 1.7 K/CMM (11/15/2012 01:50:00) Monocytes # [0.0-0.8 K/CMM] 1.0 K/CMM *HI* (11/15/2012 01:50:00) Eosinophils # [0.0-0.5 K/CMM] 0.1 K/CMM (11/15/2012 01:50:00) Basophils # [0.0-0.2 K/CMM] 0.0 K/CMM (11/15/2012 01:50:00) RBC Morph Normal (11/15/2012 01:50:00) Plt Morph Clumped (11/15/2012 01:50:00) IMMUNOLOGY Most recent to oldest [Reference Range]: 1 CDC-HIV 1/2 Ab [Negative] Negative *NA* (11/15/2012 01:50:00)
--- OUTSIDE RECORDS SUMMARY | 2019-08-13 21:34 | XMS REPORT | Clinical Summary ---
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 02/04/2019 Active glyBURIDE 2.5 mg Take 1 tablet 60 tablet 2 01 tabletIndications: Oral by mouth 2 9 hypoglycemic controlled (two) times White classification A2 daily with gestational diabetes meals for 90 mellitus (GDM) days. 02/04/2019 Active busPIRone 15 mg Take 1 tablet 90 tablet 2 11/07/19 1 tabletIndications: by mouth 3 9 Generalized anxiety (three) times disorder daily for 90 days. Active fluconazole 150 mg Take 1 tablet 2 tablet 0 11/07 tabletIndications: by mouth 9 Vaginitis and every 72 vulvovaginitis (seventy-two) hours. Active metroNIDAZOLE 500 mg Take 1 tablet 14 tablet 0 tabletIndications: by mouth 2 9 Vaginitis and (two) times vulvovaginitis daily. Active SERTraline (ZOLOFT) 50 mg Take 1/2 30 tablet 1 tabletIndications: tablet daily 9 Adjustment disorder with for one week, mixed anxiety and then increase depressed mood to one tablet daily by mouth. Active glyBURIDE 5 mg Take 1 tablet 30 tablet 1 tabletIndications: Oral by mouth 2 9 hypoglycemic controlled (two) times White classification A2 daily with gestational diabetes meals. mellitus (GDM) Active Problems Estimated Date of Delivery Comments Yes 12/14/2018 Based on last menst rual period of 03/09/2018 (Exact Date) No additional problems on file Encounters Care Team Description Date Type Specialty Angeli Hester MD Supervision of high-risk of maria isabel barberavimere (Primary Dx); Oral hypoglycemic controlled White classification A2 gestational diabetes mellitus (GDM); Asthma, unspecified asthma severity, unspecified whether complicated, unspecified whether persistent; Insufficient antepartum care; Previous delivery affecting , antepartum 11/14/2018 Routine Obstetrics & Gyneco logy Visit Angeli Hester MD Notification 11/14/2018 Telephone Obstetrics & Gyneco logy Maryanne Mendez MD Olson Koutrouvelis, Busch 1, Cl[facility] Mf Usg Room Gestational diabetes mellitus (GDM) cont rolled on oral hypoglycemic drug, antepartum; Encounter for ultrasound to check growth 11/12/2018 Television Analyzer Maternal Medi cine Visit Angeli Hester MD Refill Request 11/12/2018 Refill Obstetrics & Gyneco logy Angeli Hester MD Results 11/07/2018 Telephone Obstetrics & Gyneco logy Oskar Grayson 11/06/2018 Hospital Obstetrics Encounter Angeli Hester MD 11/06/2018 Ancillary Obstetrics & Gyneco logy Procedure Angeli Hester MD Supervision of high-risk of maria isabel butler (Primary Dx); Insufficient antepartum care; Previous delivery affecting , antepartum; Generalized anxiety disorder; Other migraine without status migrainosus, not intractable; Oral hypoglycemic controlled White classification A2 gestational diabetes mellitus (GDM); Vaginal discharge during in third trimester 11/06/2018 Routine Obstetrics & Gyneco logy Visit Angeli Hester MD Rx Concern/Question 11/06/2018 Telephone Obstetrics & Gyneco logy Angeli Hester MD Refill Request 10/31/2018 Refill Obstetrics & Gyneco rockyy Emelina Oviedo MD 10/30/2018 Hospital Obstetrics Encounter Ariela Mauricio MD Supervision of high-risk of maria isabel barberavimere (Primary Dx); Asthma, unspecified asthma severity, unspecified whether complicated, unspecified whether persistent; Insufficient antepartum care; Diet controlled gestational diabetes mellitus (GDM), antepartum; Nausea and vomiting, intractability of vomiting not specified, unspecified vomiting type 10/30/2018 Routine Obstetrics & Gyneco logy Visit Madisyn Herzog, ALEX Leg Pain 10/25/2018 Nurse Triage Angeli Hester MD Rx Concern/Question (Auth) 10/17/2018 Telephone Obstetrics & Gyneco logy Doctor Unassigned, Botines 10/17/2018 Orders Only Angeli Hester MD Refill Request 10/12/2018 Refill Obstetrics & Gyneco logy Angeli Hester MD Supervision of high-risk of maria isabel butler (Primary Dx); White classification A1 gestational diabetes mellitus; Muscle spasm; Migraine without aura and without status migrainosus, not intractable; Excessive growth affecting management of in third trimester, single or unspecified fetus 10/11/2018 Routine Obstetrics & Gyneco logy Visit Pcp, Patient Does Not Have A Refill Request 10/11/2018 Refill Angeli Hester MD Refill Request 10/11/2018 Refill Obstetrics & Gyneco logy Rob Motley MD AMA (advanced maternal age) multigravida 35+, third trimester; White classification A1 gestational diabetes mellitus; Previous delivery, antepartum condition or complication 10/09/2018 Television Analyzer Maternal Medi cine Visit Angeli Hester MD Rx Concern/Question 10/08/2018 Telephone Obstetrics & Gyneco logy Tiffany Hernandez, 10/06/2018 Hospital Obstetrics Encounter Abbey Smith RN Vomiting 10/06/2018 Nurse Triage Angeli Hester MD Supervision of high-risk of maria isabel navas multichristosavimere (Primary Dx); White classification A1 gestational diabetes mellitus 10/04/2018 Routine Obstetrics & Gyneco logy Visit Angeli Hester MD 09/24/2018 Hospital Radiology Encounter Angeli Hester MD Supervision of high-risk of maria isabel navas multigravida (Primary Dx); Elevated glucose tolerance test; Mild intermittent asthma without complication; Tobacco use disorder; Need for Tdap vaccination 09/21/2018 Routine Obstetrics & Gyneco logy Visit Angeli Hester MD Other 09/21/2018 Telephone Obstetrics & Gyneco logy Angeli Hester MD Notification 09/07/2018 Telephone Obstetrics & Gyneco logy Angeli Hester MD Results 09/06/2018 Telephone Obstetrics & Gyneco logy Angeli Hester MD 09/05/2018 Ancillary Obstetrics & Gyneco logy Procedure Angeli Hester MD Supervision of high-risk of maria isabel navas multigravida (Primary Dx); Previous delivery affecting , antepartum; Tobacco use disorder; History of marijuana use; Insufficient antepartum care; Asthma affecting , antepartum; Nausea and vomiting during ; Axillary lymphadenopathy; Gastroesophageal reflux disease without esophagitis; Tubal ligation status 09/05/2018 Initial Obstetrics & Gyneco logy Visit Doctor Unassigned, Botines 09/05/2018 Orders Only from Last 3 Months Immunizations Name Administration Dates Next Due TDAP (ADACEL) VACCINE 09/21/2018 Family History Medical History Relation Name Comments Cancer NoFHx Social History Date Tobacco Use Types Packs/Day [...] Travel Start No recent travel history available. Last Filed Vital Signs Reading Time Taken Comments Vital Sign 126/80 11/14/2018 11:13 AM CDT Blood Pressure 78 11/14/2018 11:13 AM CDT Pulse 36.7 C (98 F) 11/06/2018 3:00 PM CDT Temperature 18 11/06/2018 3:00 PM CDT Respiratory Rate 100% 11/06/2018 3:45 PM CDT Oxygen Saturation - - Inhaled Oxygen Concentration 80.2 kg (176 lb 14.4 oz) 11/14/2018 11:13 AM CDT Weight 175.3 cm (5' 9") 11/14/2018 11:13 AM CDT Height 26.12 11/14/2018 11:13 AM CDT Body Mass Index Plan of Treatment Health Maintenance Due Date Last Done Comments PNEUMOCOCCAL 0-64 YEARS 06/17/1985 COMBINED SERIES (1 of 1 - PPSV23) PAP SMEAR 06/17/2000 INFLUENZA VACCINE (#1) 2018 DTaP,Tdap,and Td Vaccines 09/21/2028 09/21/2018 (2 - Td) Procedures Comments Procedure Name Priority Date/Time Associated Diag nosis SECOND AND THIRD Routine 11/12/2018 TRIMESTER ULTRASOUND 9:47 AM CDT AUTHORIZATION TO RELEASE Routine 11/07/2018 PHI TO [facility] 12:01 AM CDT EXTERNAL PROVIDER RECORDS Routine 11/07/2018 12:01 AM CDT POCT GLUCOSE (AUTOMATED) Routine 11/06/2018 4:00 PM CDT NON-STRESS TEST Routine 11/06/2018 Insuffic ient antepartum 10:29 AM CDT care Previous delivery affecting , antepartum Oral hypoglycemic controlled White classification A2 gestational diabetes mellitus (GDM) GALV ONLY - VAGINAL Routine 11/06/2018 Vaginal di scharge during PATHOGENS BY DNA PROBE 10:26 AM CDT in t hird trimester GROUP B STREPTOCOCCUS BY Routine 11/06/2018 Super vision of high-risk PCR 10:26 AM CDT of elderl y multigravida Insufficient antepartum care L&D VISIT (NON-DELIVERED) Routine 11/06/2018 12:01 AM CDT EXTRA TUBE LT. GREEN [place] 10/30/2018 7:36 PM CDT EXTRA TUBE LAV [place] 10/30/2018 7:35 PM CDT THYROID STIMULATING [place] 10/30/2018 HORMONE 6:14 PM CDT CBC WITH DIFFERENTIAL Routine 10/30/2018 6:14 PM CDT LIPASE [place] 10/30/2018 6:14 PM CDT URINALYSIS [place] 10/30/2018 6:14 PM CDT MAGNESIUM [place] 10/30/2018 6:14 PM CDT CBC WITH DIFF Routine 10/30/2018 6:14 PM CDT COMP. METABOLIC PANEL [facility] 10/30/2018 ([id number]) 6:14 PM CDT POCT GLUCOSE (AUTOMATED) Routine 10/30/2018 5:45 PM CDT L&D VISIT (NON-DELIVERED) Routine 10/30/2018 12:01 AM CDT MEDICATION CORRESPONDENCE Routine 10/22/2018 12:01 AM CDT EXTERNAL PROVIDER RECORDS Routine 10/17/2018 12:01 AM CDT AUTHORIZATION TO RELEASE Routine 10/11/2018 PHI TO [facility] 12:01 AM CDT SECOND AND THIRD Routine 10/09/2018 TRIMESTER ULTRASOUND 3:24 PM CDT SECOND AND THIRD Routine 10/09/2018 TRIMESTER ULTRASOUND 3:19 PM CDT HELICOBACTER PYLORI AB, [facility] 10/06/2018 IGG 8:51 PM CDT LIPASE [place] 10/06/2018 8:51 PM CDT AMYLASE [place] 10/06/2018 8:51 PM CDT COMP. METABOLIC PANEL [facility] 10/06/2018 ([id number]) 8:51 PM CDT L&D VISIT (NON-DELIVERED) Routine 10/06/2018 12:01 AM CDT BI ULTRASOUND BREAST Routine 09/24/2018 Axillary lymphadenopathy LIMITED RIGHT 2:45 PM CDT TDAP (ADACEL) Routine 09/21/2018 Supervision of high-risk IMMUNIZATION 1:48 PM CDT of elderl y multigravida Need for Tdap vaccination EXTERNAL PROVIDER RECORDS Routine 09/07/2018 12:01 AM CDT EXTERNAL PROVIDER RECORDS Routine 09/07/2018 12:01 AM CDT >14 WEEKS US Routine 09/05/2018 Insuffi cient antepartum LIMITED 4:33 PM CDT care CBC WITH DIFFERENTIAL Routine 09/05/2018 Supervis ion of high-risk 4:12 PM CDT of elderly multigravida CBC WITH DIFF Routine 09/05/2018 Supervision of high-risk 4:12 PM CDT of elderly multigravida HCV ANTIBODY Routine 09/05/2018 Supervision of high-risk 4:11 PM CDT of elderly multigravida HEPATITIS B SURFACE Routine 09/05/2018 Supervisio n of high-risk ANTIGEN 4:11 PM CDT of elderl y multigravida GALV ONLY - SYPHILIS Routine 09/05/2018 Supervisi on of high-risk IGG/IGM 4:11 PM CDT of elderl y multigravida HIV 1/2 AG-AB WITH REFLEX Routine 09/05/2018 Supe rvision of high-risk 4:11 PM CDT of elderly multigravida GLUCOSE 1 HOUR POST Routine 09/05/2018 Supervisio n of high-risk PRANDIAL 4:11 PM CDT of elderl y multigravida TYPE AND SCREEN Routine 09/05/2018 Supervision of high-risk 4:08 PM CDT of elderly multigravida GC & CHLAMYDIA AMPLIFIED Routine 09/05/2018 Super vision of high-risk ASSAY 3:22 PM CDT of elderl y multigravida NO SHOW OR MISSED Routine 09/05/2018 APPOINTMENT POLICY 2:29 PM CDT ACKNOWLEDGEMENT [facility] PATIENT FINANCIAL Routine 09/05/2018 POLICY 2:29 PM CDT NOTICE OF PRIVACY Routine 09/05/2018 PRACTICES 2:28 PM CDT CONSENT/REFUSAL FOR Routine 09/05/2018 DIAGNOSIS AND TREATMENT 2:28 PM CDT ASSIGNMENT OF BENEFITS Routine 09/05/2018 2:28 PM CDT AUTHORIZATION TO RELEASE Routine 09/05/2018 PHI TO [facility] 12:01 AM CDT AUTHORIZATION FOR RELEASE Routine 09/05/2018 OF PHI 12:01 AM CDT STERILIZATION CONSENT Routine 09/05/2018 FORM 12:01 AM CDT from Last 3 Months Results * SECOND AND THIRD TRIMESTER ULTRASOUND (11/12/2018 9:47 AM CDT) Only the most recent of 3 results within the time period is included. Specimen * AUTHORIZATION TO RELEASE PHI TO [facility] (11/07/2018 12:01 AM CDT) Only the most recent of 3 results within the time period is included. Specimen Performing Organization Address [facility] one Number HIM * EXTERNAL PROVIDER RECORDS (11/07/2018 12:01 AM CDT) Only the most recent of 4 results within the time period is included. Specimen Performing Organization Address [facility] one Number HIM * POCT GLUCOSE (AUTOMATED) (11/06/2018 4:00 PM CDT) Only the most recent of 2 results within the time period is included. POCT GLU 118 (H) 70 - 110 mg/dL [facility] Specimen Blood Performing Organization Address [facility] one Number [facility] CLIA: [id number], [address] [place] [address] St * NON-STRESS TEST (11/06/2018 10:29 AM CDT) Specimen Narrative Performed At PACS Baseline varies from 120s to 130s, mod mauricio with good accels, frequent contractions q2-3 minutes on toco Performing Organization Address [facility] one Number PACS * GROUP B STREPTOCOCCUS BY PCR (11/06/2018 10:26 AM CDT) Group B Negative Negative [facility] Streptococcus SERVICES by PCR Specimen Swab - VAGINA Performing Organization Address [facility] one Number [facility] SERVICES CLIA: [id number], [address] [place] [id number] [facility] * GALV ONLY - VAGINAL PATHOGENS BY DNA PROBE (11/06/2018 10:26 AM CDT) Trichomonas Negative Negative [facility] vaginalis SERVICES Gardnerella Positive (A) Negative [facility] vaginalis SERVICES Dia species Positive (A) Negative [facility] LABORATOR Y SERVICES Specimen Fluid - VAGINA Performing Organization Address [facility] one Number [facility] SERVICES CLIA: [id number], [address] [place] [address] [facility] * L&D VISIT (NON-DELIVERED) (11/06/2018 12:01 AM CDT) Only the most recent of 3 results within the time period is included. Specimen Performing Organization Address City/[facility] one Number HIM * EXTRA TUBE LT. GREEN (10/30/2018 7:36 PM CDT) Specimen Blood Performing Organization Address [facility] Ph one Number [facility] CLIA: [id number], [address] [place], [place] [address] [facility] * EXTRA TUBE LAV (10/30/2018 7:35 PM CDT) Specimen Blood Performing Organization Address [facility] one Number [facility] CLIA: [id number], [address] [place], [place] [address] [facility] * CBC WITH DIFFERENTIAL (10/30/2018 6:14 PM CDT) Only the most recent of 2 results within the time period is included. WBC 12.84 (H) 4.30 - 11.10 [facility] 10*3/L [facility] RBC 3.36 (L) 3.93 - 5.25 10*6/L [facility] HGB 9.9 (L) 11.6 - 15.0 g/dL [facility] HCT 31.1 (L) 35.7 - 45.2 % [facility] MCV 92.6 80.6 - 95.5 fL [facility] MCH 29.5 25.9 - 32.8 pg [facility] MCHC 31.8 31.6 - 35.1 g/dL [facility] RDW-SD 49.2 39.0 - 49.9 fL [facility] RDW-CV 14.6 12.0 - 15.5 % [facility] PLT 300 166 - 358 10*3/L [facility] MPV 10.7 9.5 - 12.9 fL [facility] NRBC/100 WBC 0.0 0.0 - 10.0 /100 WBCs [facility] NRBC x10^3 <0.01 10*3/L [facility] GRAN MAT (NEUT) 78.3 % [facility] Y % [facility] IMM GRAN % 0.50 % [facility] LYMPH % 13.6 % [facility] MONO % 6.8 % [facility] EOS % 0.6 % [facility] BASO % 0.2 % [facility] GRAN MAT 10.05 (H) 1.88 - 7.09 10*3/uL [facility] AT[facility] x10^3(ANC) [facility] IMM GRAN x10^3 0.07 (H) 0.00 - 0.06 10*3/uL [facility] LYMPH x10^3 1.75 1.32 - 3.29 10*3/uL [facility] MONO x10^3 0.87 0.33 - 0.92 10*3/uL [facility] EOS x10^3 0.08 0.03 - 0.39 10*3/uL [facility] BASO x10^3 <0.03 0.01 - 0.07 10*3/uL [facility] Specimen Blood - VENOUS Performing Organization Address City/State/[facility] one Number [facility] CLIA: [id number], [address] [place], [place] [address] [facility] * URINALYSIS (10/30/2018 6:14 PM CDT) APPEARANCE Clear Clear [facility] COLOR Yellow Yellow [facility] PH 6.0 4.8 - 8.0 [facility] SP GRAVITY 1.021 1.003 - 1.030 [facility] GLU U QUAL Normal Normal [facility] BLOOD Negative Negative [facility] KETONES Negative Negative [facility] PROTEIN Negative Negative [facility] UROBILIN Normal Normal [facility] BILIRUBIN Negative Negative [facility] NITRITE Negative Negative [facility] LEUK TRAV Negative Negative [facility] RBC/HPF 2 0 - 3 HPF [facility] WBC/HPF 2 0 - 5 HPF [facility] BACTERIA Negative Negative [facility] MUCOUS Slight (A) Negative LPF [facility] SQ EPITH 5 (H) <=2 HPF [facility] Specimen Urine - URINE, CLEAN CATCH Performing Organization Address City/State/Zipcode Ph one Number [facility] CLIA: [id number], [address] [place], [place] [address] [facility] * COMP. METABOLIC PANEL ([id number]) (10/30/2018 6:14 PM CDT) Only the most recent of 2 results within the time period is included. NA 135 135 - 145 mmol/L [facility] K 4.2 3.5 - 5.0 mmol/L [facility] CL 106 98 - 108 mmol/L [facility] LABORATOR Y [facility] CO2 TOTAL 20 (L) 23 - 31 mmol/L [facility] AGAP 9 2 - 16 [facility] BUN 12 7 - 23 mg/dL [facility] GLUCOSE 87 70 - 110 mg/dL [facility] CREATININE 0.46 (L) 0.50 - 1.04 mg/dL [facility] LABORAT ORY [facility] TOTAL BILI 0.2 0.1 - 1.1 mg/dL [facility] LABORATOR Y [facility] CALCIUM 9.0 8.6 - 10.6 mg/dL [facility] T PROTEIN 6.0 (L) 6.3 - 8.2 g/dL [facility]OR[facility] ALBUMIN 2.9 (L) 3.5 - 5.0 g/dL [facility] ALK PHOS 149 (H) 34 - 122 U/L [facility] ALT(SGPT) 18 9 - 51 U/L [facility] AST(SGOT) 14 13 - 40 U/L [facility] eGFR 151.2 mL/min/1.73m2 [facility] Calculation SERVICES-LETOHATCHEE (Non-[facility]) eGFR 183.3 mL/min/1.73m2 [facility] Calculation [facility] ([facility]) Specimen Blood - VENOUS Narrative Performed At Association of Glomerular Filtration Rate (GFR) and S taging of Kidney Disease* [facility] + + +------ + [facility] | GFR (mL/min/1.73 m2)| With Kidney Damage| Without Kidney Damage CAMPUS + + -------+ + |>90 |Stage one| Normal + + -------+ + |60-89 |Stage two| Decreased GFR + + -------+ + |30-59 |Stage three| Stage three + + -------+ + |15-29 |Stage four | Stage four + + -------+ + |<15 (or dialysis)|Stag e five | Stage five + + -------+ + *Each stage assumes the associated GFR level has been in effect for at least three months.Stages 1 to 5, with or without kidney disease, indicate chronic kidney disease. Notes: Determination of stages one and two (with eGFR >59mL/min/1.73 m2) requires estimation of kidney damage fo r at least three months as defined by structural or functional abnormalities of the kidney, manifested by either: Pathological abnormalities or Markers o f kidney damage (including abnormalities in the composition of the blood or urin e or abnormalities in imaging tests). Performing Organization Address [facility] one Number [facility] CLIA: [id number], [address] [place] [address] [facility] * THYROID STIMULATING HORMONE (10/30/2018 6:14 PM CDT) TSH 1.65Comment: Biotin has been 0.45 - 4.70 mIU/L [facility] reported to cause a negative [facility] bias, interpret results [facility] relative to patient's use of biotin. Specimen Blood - VENOUS Performing Organization Address [facility] one Number [facility] CLIA: [id number], [address] [place] [id number] [facility] * MAGNESIUM (10/30/2018 6:14 PM CDT) MAGNESIUM 1.8 1.7 - 2.4 mg/dL [facility] LABORATOR Y SERVICES-[facility] Specimen Blood - VENOUS Performing Organization Address [facility] one Number [facility] CLIA: [id number], [address] [place], [place] [address] [facility] * LIPASE (10/30/2018 6:14 PM CDT) Only the most recent of 2 results within the time period is included. LIPASE 66 0 - 220 U/L [facility] Specimen Blood - VENOUS Performing Organization Address [facility] one Number [facility] CLIA: [id number], [address] [place] [address] [facility] * MEDICATION CORRESPONDENCE (10/22/2018 12:01 AM CDT) Specimen Performing Organization Address [facility] one Number HIM * HELICOBACTER PYLORI AB, IGG (10/06/2018 8:51 PM CDT) [facility] Helicobacter Negative Negative [facility] pylori IgG SERVICES Antibody Specimen Blood - VENOUS Narrative Performed At Negative - No H. pylori IgG antibody detected. [facility] Positive - Indicates presence of detect able IgG antibodies. Does not distinguish SERVICES between past or current infection, or b etween active infection and colonization. Invalid - A second sample should be sen t. Negative - No H. pylori IgG antibody de tected. Positive - Indicates presence of detect able IgG antibodies. Does not distinguish between past or current infection, or b etween active infection and colonization. Invalid - A second sample should be sen t. Performing Organization Address [facility] one Number [facility] SERVICES CLIA: [id number], [address] [place] [address] [facility] * AMYLASE (10/06/2018 8:51 PM CDT) ANJU 34 (L) 35 - 110 U/L [facility] Specimen Blood - VENOUS Performing Organization Address [facility] one Number [facility] CLIA: [id number], [address] [place], [place] [address] SERVICES-[facility] * BI ULTRASOUND BREAST LIMITED RIGHT (09/24/2018 2:45 PM CDT) Specimen Narrative Performed At PACS Examination: BI ULTRASOUND BREAST LIMITED RIGHT History: Patient is 38 year old and is seen for: Enlarged lymph nodes.Patient is and a mammogram was not perfor med. No relevant family history has been doc umented for this patient. No relevant hormone history has been docum ented for this patient. No relevant surgical history has been documented fo r this patient. Comparisons : None available Findings: Targeted ultrasound of the right axilla was performed. There is no evidence of suspicious mass es or other abnormal findings. There is no right axillary lymphadenopa thy. No sonographic findings to account for the patient's complaints of swelling and pain in the right axilla. Impression: 1. No right axillary lymphadenopathy. There is no targeted sonographic evidence of malignancy. 2. No sonographic findings to account f or the patient's symptoms. Recommendation: 1. Clinical follow-up is recommended an d further management of clinical findings should be based on the results of clinical evaluation. - Right 2. Follow-up screening mammogram at age 40 or based on current ACR guidelines BI-RADS Category: Right 1 - Negative I personally reviewed the study and agr ee with the resident's/fellow's report. These findings and recommendati ons were discussed with the patient at the conclusion of today's examrandolpho nAnnamarie Performing Organization Address City/[facility] Ph one Number PACS * >14 WEEKS US LIMITED (09/05/2018 4:33 PM CDT) Specimen Narrative Performed At PACS Live IUP, size consistent with 27w3d, l arger than previous dating, growth/anatomy scan ordered with [facility] Performing Organization Address City/[facility] Ph one Number [facility] * GALV ONLY - SYPHILIS IGG/IGM (09/05/2018 4:11 PM CDT) Syphilis Non-reactive Non-reactive [facility] IgG/IgM SERVICES Specimen Blood - VENOUS Narrative Performed At Non-reactive - No serologic evidence of T. pallidum i nfection. Cannot exclude [facility] incubating or early syphilis. Submit a second specimen in 2-4 weeks if syphilis SERVICES is clinically suspected. Equivocal - Further testing to follow. Reactive - Further testing to follow. Performing Organization Address City/[facility] one Number [facility] CLIA: [id number], [address] [place] [address] [facility] * HIV 1/2 AG-AB WITH REFLEX (09/05/2018 4:11 PM CDT) HIV 1/2 Ag-Ab Negative Negative [facility] with Reflex SERVICES HIV 0.07 [facility] Semi-quantitati SERVICES ve Specimen Blood Narrative Performed At Non-reactive for HIV-1 antigen and HIV-1/HIV-2 antibo dies.No laboratory [facility] evidence of HIV infection.Repeat in 2-4 weeks if acute HIV infection is SERVICES suspected. Performing Organization Address [facility] one Number [facility] CLIA: [id number], [address] [place] [address] [facility] * HCV ANTIBODY (09/05/2018 4:11 PM CDT) HCV Ab NEGATIVE [facility] HCV 0.01 [facility] Semi-Quantitati SERVICES ve Specimen Blood Performing Organization Address [facility] one Number [facility] CLIA: [id number], [address] [place] [address] [facility] * HEPATITIS B SURFACE ANTIGEN (09/05/2018 4:11 PM CDT) HBsAg HEPATITIS B SURFACE ANTIGEN Negative [facility] NEGATIVE SERVICES HBsAg 0.06 [facility] Semi-Quantitati SERVICES ve Specimen Blood Performing Organization Address [facility] one Number [facility] CLIA: [id number], [address] [place] [address] [facility] * GLUCOSE 1 HOUR POST PRANDIAL (09/05/2018 4:11 PM CDT) GLUC 1 HR 189 (H) 120 - 170 mg/dL [facility] LABORATOR Y SERVICES Specimen Blood Performing Organization Address [facility] one Number [facility] CLIA: [id number], [address] [place] [address] [facility] * Type and Screen - (09/05/2018 4:08 PM CDT) ABO & RH O POSITIVE LAB Comment: Performed at [facility] Laboratory Services - [facility] Blood [place] [address] Toll Free: [phone] CLIA No. [id number] IAT Negative LAB Comment: Performed at [facility] Laboratory Services - [facility] Blood [place] [address] Toll Free: [phone] CLIA No. [id number] Specimen Blood - VENOUS Performing Organization Address City/State/Zipcode Ph one Number D LAB * GC & CHLAMYDIA AMPLIFIED ASSAY (09/05/2018 3:22 PM CDT) C. trachomatis NEGATIVE Negative [facility] Nucleic Acid SERVICES N. gonorrhoeae NEGATIVE Negative [facility] Nucleic Acid SERVICES Specimen Swab - CERVIX Performing Organization Address City/State/Zipcode Ph one Number [facility] CLIA: [id number], [address] [place] [address] [facility] * NO SHOW OR MISSED APPOINTMENT POLICY ACKNOWLEDGEMENT (09/05/2018 2:29 PM CDT) Specimen Performing Organization Address City/State/Zipcode Ph one Number HIM * [facility] PATIENT FINANCIAL POLICY (09/05/2018 2:29 PM CDT) Specimen Performing Organization Address City/State/Zipcode Ph one Number HIM * NOTICE OF PRIVACY PRACTICES (09/05/2018 2:28 PM CDT) Specimen Performing Organization Address City/State/Zipcode Ph one Number HIM * CONSENT/REFUSAL FOR DIAGNOSIS AND TREATMENT (09/05/2018 2:28 PM CDT) Specimen Performing Organization Address City/State/Zipcode Ph one Number HIM * ASSIGNMENT OF BENEFITS (09/05/2018 2:28 PM CDT) Specimen Performing Organization Address City/State/Zipcode Ph one Number HIM * STERILIZATION CONSENT FORM (09/05/2018 12:01 AM CDT) Specimen Performing Organization Address City/State/Zipcode Ph one Number HIM * AUTHORIZATION FOR RELEASE OF PHI (09/05/2018 12:01 AM CDT) Specimen Performing Organization Address City/State/Zipcode Ph one Number HIM from Last 3 Months Insurance Type Payer Benefit Subscriber ID Effective Phone Address Plan / Dates Group Medicaid COMMUNITY HEALTH CHOICE - [facility] xxxxxxxxx 2018-P [address] MEDICAID HEALTH resent [id number] [place], [place] [address] [facility] [id number] 2018-P 500 - MANAGED MEDICAID BEHAVIORAL resent [facility] [address] [place] [address]
--- OUTSIDE RECORDS SUMMARY | 2019-08-13 21:34 | XMS REPORT | Summary of Care ---
Author Author [facility] - Health Organization [facility] - Health Address Unknown Phone Unavailable Care Team Providers Care Recovery Room Nurse Name Role Phone Pcp, Patient Does Not Have A PCP [phone] Encounter Details Care Team Description Date [place] [address] [address] [address] [place] [address] 10/30/2018 [facility] Labor a nd Encounter Delivery Unit [address] [address] Allergies Comments Active Allergy Reactions Severity Noted Date Azithromycin Swelling 09/05/2018 documented as of this encounter (statuses as of 10/30/2018) Medications End Date Status Medication Sig Dispensed Refills Start Date Active cyclobenzaprine 10 mg Take 1 tablet 20 tablet 0 tabletIndications: Muscle by mouth at 9 spasm bedtime as needed for Muscle Spasms. Active propranolol (INDERAL XL) Take 1 30 capsule 1 0 80 mg 24 hr capsule by 9 capsuleIndications: mouth daily. Migraine without aura and without status migrainosus, not intractable Active metoclopramide HCl 10 mg Take 1 tablet 30 tablet 1 tabletIndications: by mouth 9 Nausea/vomiting in every 8 (eight) hours as needed for Nausea and Vomiting (N/V) or Gastroesophag eal reflux. Active pantoprazole 40 mg EC Take 1 tablet 90 tablet 1 tabletIndications: by mouth 9 Nausea/vomiting in daily. , Heartburn during in third trimester documented as of this encounter (statuses as of 10/30/2018) Active Problems Estimated Date of Delivery Comments Yes 12/14/2018 Based on last menst rual period of 03/09/2018 (Exact Date) No additional problems on filedocumented as of this encounter (statuses as of 10/30/2018) Immunizations Name Administration Dates Next Due TDAP [...] Signs Reading Time Taken Comments Vital Sign 116/72 10/30/2018 6:30 PM CDT Blood Pressure 105 10/30/2018 7:30 PM CDT Pulse 36.8 C (98.3 F) 10/30/2018 5:00 PM CDT Temperature 18 10/30/2018 7:30 PM CDT Respiratory Rate 100% 10/30/2018 7:30 PM CDT Oxygen Saturation - - Inhaled Oxygen Concentration - - Weight - - Height - - Body Mass Index documented in this encounter Discharge Instructions * Attachments The following attachments cannot be sent through Care Everywhere.* Vomiting (Adult) (Gambian) documented in this encounter Plan of Treatment Care Team Description Date Type Specialty Ariela Mauricio MD [address] [place] [address] [phone] 11/05/2018 Routine Obstetrics & Gyneco logy Visit Date/Time Name Type Priority Associated Diag noses 10/30/2018 7:36 PM CDT EXTRA TUBE LT. GREEN LAB ONLY [place] Order Schedule Name Type Priority Associated Diag noses ONCE for 1 Occurrences starting 10/31/19 19 until 10/30/2018 EXTRA TUBE LT. GREEN LAB ONLY [place] Health Maintenance Due Date Last Done Comments PNEUMOCOCCAL 0-64 YEARS 06/17/1985 COMBINED SERIES (1 of 1 - PPSV23) PAP SMEAR 06/17/2000 INFLUENZA VACCINE 11/18/2018 DTaP,Tdap,and Td Vaccines 09/21/2028 09/21/2018 (2 - Td) documented as of this encounter Procedures Comments Procedure Name Priority Date/Time Associated Diag nosis EXTRA TUBE LAV [place] 10/30/2018 7:35 PM CDT CBC WITH DIFFERENTIAL Routine 10/30/2018 6:14 PM CDT URINALYSIS [place] 10/30/2018 6:14 PM CDT CBC WITH DIFF Routine 10/30/2018 6:14 PM CDT COMP. METABOLIC PANEL [place] 10/30/2018 ([id number]) 6:14 PM CDT THYROID STIMULATING [place] 10/30/2018 HORMONE 6:14 PM CDT MAGNESIUM [place] 10/30/2018 6:14 PM CDT LIPASE [place] 10/30/2018 6:14 PM CDT POCT GLUCOSE (AUTOMATED) Routine 10/30/2018 5:45 PM CDT documented in this encounter Results * EXTRA TUBE LAV (10/30/2018 7:35 PM CDT) Specimen Blood Performing Organization Address [facility] one Number [facility] CLIA: [id number], [address] [place], [place] [address] [facility] * THYROID STIMULATING HORMONE (10/30/2018 6:14 PM CDT) TSH 1.65Comment: Biotin has been 0.45 - 4.70 mIU/L [facility] reported to cause a negative SERVICES-CLEAR bias, interpret results [facility] relative to patient's use of biotin. Specimen Blood - VENOUS Performing Organization Address [facility] one Number [facility] CLIA: [id number], [address] [place], [place] [address] [facility] * CBC WITH DIFFERENTIAL (10/30/2018 6:14 PM CDT) WBC 12.84 (H) 4.30 - 11.10 [facility] 10*3/L [facility] RBC 3.36 (L) 3.93 - 5.25 10*6/L [facility] HGB 9.9 (L) 11.6 - 15.0 g/dL [facility] HCT 31.1 (L) 35.7 - 45.2 % [facility] MCV 92.6 80.6 - 95.5 fL [facility] MCH 29.5 25.9 - 32.8 pg [facility] MCHC 31.8 31.6 - 35.1 g/dL [facility] RDW-SD 49.2 39.0 - 49.9 fL [facility] RDW-CV 14.6 12.0 - 15.5 % [facility] PLT 300 166 - 358 10*3/L [facility] MPV 10.7 9.5 - 12.9 fL [facility] NRBC/100 WBC 0.0 0.0 - 10.0 /100 WBCs [facility] NRBC x10^3 <0.01 10*3/L [facility] GRAN MAT (NEUT) 78.3 % [facility] LABORATOR Y % [facility] IMM GRAN % 0.50 % [facility] LYMPH % 13.6 % [facility] MONO % 6.8 % [facility] EOS % 0.6 % [facility] BASO % 0.2 % [facility] GRAN MAT 10.05 (H) 1.88 - 7.09 10*3/uL [facility] ATORY x10^3(ANC) [facility] IMM GRAN x10^3 0.07 (H) 0.00 - 0.06 10*3/uL [facility] AT[facility] LYMPH x10^3 1.75 1.32 - 3.29 10*3/uL [facility] AT[facility] SERVICES-[facility] MONO x10^3 0.87 0.33 - 0.92 10*3/uL [facility] EOS x10^3 0.08 0.03 - 0.39 10*3/uL [facility] BASO x10^3 <0.03 0.01 - 0.07 10*3/uL [facility] Specimen Blood - VENOUS Performing Organization Address City/[facility] Ph one Number [facility] CLIA: [id number], [address] [place] [address] [facility] * LIPASE (10/30/2018 6:14 PM CDT) LIPASE 66 0 - 220 U/L [facility] Specimen Blood - VENOUS Performing Organization Address City/[facility] Ph one Number [facility] CLIA: [id number], [address] [place] [address] [facility] * URINALYSIS (10/30/2018 6:14 PM CDT) APPEARANCE Clear Clear [facility] COLOR Yellow Yellow [facility] PH 6.0 4.8 - 8.0 [facility] SP GRAVITY 1.021 1.003 - 1.030 [facility] GLU U QUAL Normal Normal [facility] BLOOD Negative Negative [facility] KETONES Negative Negative [facility] PROTEIN Negative Negative [facility] UROBILIN Normal Normal [facility] BILIRUBIN Negative Negative [facility] NITRITE Negative Negative [facility] LEUK TRAV Negative Negative [facility] RBC/HPF 2 0 - 3 HPF [facility] WBC/HPF 2 0 - 5 HPF [facility] BACTERIA Negative Negative [facility] MUCOUS Slight (A) Negative LPF [facility] SQ EPITH 5 (H) <=2 HPF [facility] Specimen Urine - URINE, CLEAN CATCH Performing Organization Address [facility] one Number [facility] CLIA: [id number], [address] [place], [place] [address] [facility] * MAGNESIUM (10/30/2018 6:14 PM CDT) MAGNESIUM 1.8 1.7 - 2.4 mg/dL [facility] LABORATOR Y [facility] Specimen Blood - VENOUS Performing Organization Address [facility] Ph one Number [facility] CLIA: [id number], [address] [place], [place] [address] [facility] * COMP. METABOLIC PANEL ([id number]) (10/30/2018 6:14 PM CDT) NA 135 135 - 145 mmol/L [facility] K 4.2 3.5 - 5.0 mmol/L [facility] CL 106 98 - 108 mmol/L [facility] LABORATOR Y [facility] CO2 TOTAL 20 (L) 23 - 31 mmol/L [facility] AGAP 9 2 - 16 [facility] BUN 12 7 - 23 mg/dL [facility] GLUCOSE 87 70 - 110 mg/dL [facility] CREATININE 0.46 (L) 0.50 - 1.04 mg/dL [facility] LABORAT ORY [facility] TOTAL BILI 0.2 0.1 - 1.1 mg/dL [facility] Y [facility] CALCIUM 9.0 8.6 - 10.6 mg/dL [facility] RY [facility] T PROTEIN 6.0 (L) 6.3 - 8.2 g/dL [facility] ALBUMIN 2.9 (L) 3.5 - 5.0 g/dL [facility] ALK PHOS 149 (H) 34 - 122 U/L [facility] ALT(SGPT) 18 9 - 51 U/L [facility] AST(SGOT) 14 13 - 40 U/L [facility] SERVICES-[facility] eGFR 151.2 mL/min/1.73m2 [facility] Calculation SERVICES-CLEAR (Non-[facility]) eGFR 183.3 mL/min/1.73m2 [facility] Calculation SERVICES-CLEAR ([facility]) Specimen Blood - VENOUS Narrative Performed At Association of Glomerular Filtration Rate (GFR) and S taging of Kidney Disease* [facility] + + +------ + SERVICES-[place] | GFR (mL/min/1.73 m2)| With Kidney Damage| [...] abnormalities in imaging tests). Performing Organization Address City/[facility] one Number [facility] CLIA: [id number], [address] [place], [place] [address] [facility] * POCT GLUCOSE (AUTOMATED) (10/30/2018 5:45 PM CDT) POCT GLU 94 70 - 110 mg/dL [facility] Specimen Blood Performing Organization Address [facility] one Number [facility] CLIA: [id number], [address] [place] [address] documented in this encounter Visit Diagnoses Diagnosis Nausea/vomiting in - Primary Unspecified vomiting of , unsp ecified as to episode of care [facility] documented in this encounter Administered Medications Action Date Dose Rate Site Medication Order MAR Action 10/30/2018 6:30 PM CDT 1,000 mL 125 mL/hr lactated ringers IV infusion 1,000 mL New Bag at 125 mL/hr, 1,000 mL, IV Infusion, CONTINUOUS, Starting Mon10/30/18 at 1830, Until Discontinued, Routine 10/30/2018 6:20 PM CDT 10 mg metoclopramide HCl (REGLAN) injection 10 Given mg 10 mg, Slow IV Push, Q6HPRN, Starting Mon10/30/18 at 1756, Until Discontinued , Routine, Nausea and Vomiting (N/V) ondansetron (ZOFRAN (PF)) injection 4 m g 4 mg, Slow IV Push, Q8HPRN, Starting 10/30/18 at 1727, Until Discontinued, Routine, Nausea and Vomiting (N/V) Action Date Dose Rate Site Medication Order MAR Action 10/30/2018 6:51 PM CDT 20 mg famotidine 20 mg in NS 50 ml (PEPCID) 20 New Bag mg/50 mL Piggyback 20 mg 20 mg, IV Piggyback, ONCE NOW, 1 dose, Mon10/30/18 at 1845, 50 mL documented in this encounter Insurance Type Payer Benefit Subscriber ID Effective Phone Address Plan / Dates Group Medicaid COMMUNITY HEALTH CHOICE - COMMUNITY xxxxxxxxx 2018-P [address] MEDICAID HEALTH resent [id number] [place], [place] [address] documented as of this encounter"
--- OUTSIDE RECORDS SUMMARY | 2019-08-13 21:34 | XMS REPORT | Summary of Care ---
Author Author [facility] - Health Organization [facility] - Health Address Unknown Phone Unavailable Care Team Providers Care Mottle Lay Up Operator Name Role Phone Pcp, Patient Does Not Have A PCP [phone] Reason for Visit * Reason Comments Rx Concern/Question Auth Encounter Details Care Team Description Date Type Department Angeli Hester MD [address] [place] [address] Rx Concern/Question (Auth) 10/17/2018 Telephone [facility] [address] [place] [address] Allergies Comments Active Allergy Reactions Severity Noted Date Azithromycin Swelling 09/05/2018 documented as of this encounter (statuses as of 10/24/2018) Medications End Date Status Medication Sig Dispensed [...] as of this encounter (statuses as of 10/24/2018) Active Problems Estimated Date of Delivery Comments Yes 12/14/2018 Based on last menst rual period of 03/09/2018 (Exact Date) No additional problems on filedocumented as of this encounter (statuses as of 10/24/2018) Immunizations Name Administration Dates Next Due TDAP [...] Date Type Specialty Angeli Hester MD [address] [place], [place] [address] 10/25/2018 Routine Obstetrics & Gyneco logy Visit Health [...] xxxxxxxxx 2018-P [address] MANAGED MEDICAID HEALTH [facility] [id number] [place], [place] [address] documented as of this encounter
--- OUTSIDE RECORDS SUMMARY | 2019-08-13 21:34 | XMS REPORT | Summary of Care ---
Author Author [facility] - Health Organization [facility] - Health Address Unknown Phone Unavailable Care Team Providers Care Content Strategist Name Role Phone Pcp, Patient Does Not Have A PCP [phone] Encounter Details Care Team Description Date Type Department Oskar Grayson [id number] [place] [address] [phone] 11/06/2018 Hospital [facility] [place] Labor a nd Encounter Delivery Unit [facility] [address] [place] [address] Allergies Comments Active Allergy Reactions Severity Noted Date Azithromycin Swelling 09/05/2018 documented as of this encounter (statuses as of 11/06/2018) Medications End Date Status Medication Sig Dispensed Refills Start Date 11/06/2018 Discontinued cyclobenzaprine 10 mg Take 1 tablet 20 tablet 0 tabletIndications: Muscle by mouth at 9 spasm bedtime as needed for Muscle Spasms. 11/06/2018 Discontinued metoclopramide HCl 10 mg Take 1 tablet 30 tablet 1 tabletIndications: by mouth 9 Nausea/vomiting in every 8 (eight) hours as needed for Nausea and Vomiting (N/V) or Gastroesophag eal reflux. 11/06/2018 Discontinued pantoprazole 40 mg EC Take 1 tablet 90 tablet 1 tabletIndications: by mouth 9 Nausea/vomiting in daily. , Heartburn during in third trimester documented as of this encounter (statuses as of 11/06/2018) Active Problems Estimated Date of Delivery Comments Yes 12/14/2018 Based on last menst rual period of 03/09/2018 (Exact Date) No additional problems on filedocumented as of this encounter (statuses as of 11/06/2018) Immunizations Name Administration Dates Next Due TDAP [...] Signs Reading Time Taken Comments Vital Sign 111/81 11/06/2018 3:45 PM CDT Blood Pressure 91 11/06/2018 3:45 PM CDT Pulse 36.7 C (98 F) 11/06/2018 3:00 PM CDT Temperature 18 11/06/2018 3:00 PM CDT Respiratory Rate 100% 11/06/2018 3:45 PM CDT Oxygen Saturation - - Inhaled Oxygen Concentration - - Weight - - Height - - Body Mass Index documented in this encounter Discharge Instructions * Instructions* Mulu Wilson, RN - 11/06/2018 Follow up in office of primary OB at next scheduled appointment; return [facility] if experiencing abdominal pain, leaking of fluid, vaginal bleeding or decrea sed movement. documented in this encounter Plan of Treatment Care Team Description Date Type Specialty Ariela Mauricio MD [address] [place] [address] [phone] 11/09/2018 Routine Obstetrics & Gyneco logy Visit Health Maintenance Due Date Last Done Comments PNEUMOCOCCAL 0-64 YEARS 06/17/1985 COMBINED SERIES (1 of 1 - PPSV23) PAP SMEAR 06/17/2000 INFLUENZA VACCINE (#1) 2018 DTaP,Tdap,and Td Vaccines 09/21/2028 09/21/2018 (2 - Td) documented as of this encounter Procedures Comments Procedure Name Priority Date/Time Associated Diag nosis POCT GLUCOSE (AUTOMATED) Routine 11/06/2018 4:00 PM CDT L&D VISIT (NON-DELIVERED) Routine 10/30/2018 12:01 AM CDT documented in this encounter Results * POCT GLUCOSE (AUTOMATED) (11/06/2018 4:00 PM CDT) POCT GLU 118 (H) 70 - 110 mg/dL [facility] Specimen Blood Performing Organization Address City/State[facility] Ph one Number [facility] CLIA: [id number], [address] [place] [address] St documented in this encounter Insurance Type Payer Benefit Subscriber ID Effective Phone Address Plan / Dates Group Medicaid COMMUNITY HEALTH CHOICE - COMMUNITY xxxxxxxxx 2018-P [address] MANAGED MEDICAID HEALTH resent [id number] [place], [place] [address] documented as of this encounter
--- OUTSIDE RECORDS SUMMARY | 2019-08-13 21:34 | XMS REPORT | Summary of Care ---
Author Author [facility] - Health Organization [facility] - Health Address Unknown Phone Unavailable Care Team Providers Care Early Intervention School Psychologist Name Role Phone Pcp, Patient Does Not Have A PCP [phone] Reason for Visit * Reason Comments Care Encounter Details Care Team Description Date Type Department Ariela Mauricio MD [address] [place], [place] [address] Supervision of high-risk of el eloise multigravida (Primary Dx); Asthma, unspecified asthma severity, unspecified whether complicated, unspecified whether persistent; Insufficient antepartum care; Diet controlled gestational diabetes mellitus (GDM), antepartum; Nausea and vomiting, intractability of vomiting not specified, unspecified vomiting type 10/30/2018 Routine [facility] [address] [place] [address] Allergies Comments Active Allergy Reactions Severity Noted Date Azithromycin Swelling 09/05/2018 documented as of this encounter (statuses as of 10/31/2018) Medications End Date Status Medication Sig Dispensed [...] as of this encounter (statuses as of 10/31/2018) Active Problems Estimated Date of Delivery Comments Yes 12/14/2018 Based on last menst rual period of 03/09/2018 (Exact Date) No additional problems on filedocumented as of this encounter (statuses as of 10/31/2018) Immunizations Name Administration Dates Next Due TDAP [...] Signs Reading Time Taken Comments Vital Sign 120/78 10/30/2018 3:58 PM CDT Blood Pressure 92 10/30/2018 3:58 PM CDT Pulse 36.9 C (98.5 F) 10/30/2018 3:58 PM CDT Temperature - - Respiratory Rate - - Oxygen Saturation - - Inhaled Oxygen Concentration 76.7 kg (169 lb) 10/30/2018 3:58 PM CDT Weight - - Height 24.96 10/11/2018 1:25 PM CDT Body Mass Index documented in this encounter Progress Notes * Ariela Mauricio MD - 10/30/2018 3:30 PM CDT Chief complaint: Chief Complaint Patient presents with Care HPI Patient denies contractions, vaginal bleeding or leakage of fluid. Reports good movement. Also has nausea and vomiting since this AM. Patient did not bring FSBG log Histories OB History Para Term AB Living [...] file Gets together: Not on file Attends worship service: Not on file Active member of [...] control/protection: None Labs No new labs Radiology No new radiology. Allergies Delma is allergic to azithromycin. Medications Delma has a current medication list which includes the following prescription(s ): propranolol and cyclobenzaprine. Review of Systems Constitutional: Negative. Gastrointestinal: Positive for nausea and vomiting. Genitourinary: Negative. Neurological: Negative. BP 120/78 | Pulse 92 | Temp 36.9 C (98.5 F) | Wt 169 lb (76.7 kg) | LMP 03/09/2018 (Exact Date) | BMI 24.96 kg/m Pregravid BMI: Could not be calculated Physical Exam PHYSICAL: General Exam: Abdomen: Normal Extremities: Normal Assessment/Plan Supervision of high-risk of elderly multigravida (primary encounter d iagnosis) Comment: see HPI Asthma, unspecified asthma severity, unspecified whether complicated, unspecifie d whether persistent Comment: She complained of shortness of breath -SpO2 93%, improved 100% after in haler use. Insufficient antepartum care Diet controlled gestational diabetes mellitus (GDM), antepartum Comment: did not bring log, emphasized importance of keeping log. Nausea and vomiting, intractability of vomiting not specified, unspecified vomit ing type Comment: patient sent to L&D RTC in1 week with Dr. Mir Mauricio MD documented in this encounter Plan of Treatment Care Team Description Date Type Specialty Ariela Mauricio MD [address] [place] [address] [phone] 11/05/2018 Routine Obstetrics & Gyneco logy Visit Health Maintenance Due Date Last Done Comments PNEUMOCOCCAL 0-64 YEARS 06/17/1985 COMBINED SERIES (1 of 1 - PPSV23) PAP SMEAR 06/17/2000 INFLUENZA VACCINE 11/18/2018 DTaP,Tdap,and Td Vaccines 09/21/2028 09/21/2018 (2 - Td) documented as of this encounter Results Not on filedocumented in this encounter Visit Diagnoses Diagnosis Supervision of high-risk of e lderly multigravida - Primary Asthma, unspecified asthma severity, un specified whether complicated, unspecified whether persistent Insufficient antepartum care Diet controlled gestational diabetes me llitus (GDM), antepartum Nausea and vomiting, intractability of vomiting not specified, unspecified vomiting type documented in this encounter Insurance Type Payer Benefit Subscriber ID Effective Phone Address Plan / Dates Group Medicaid COMMUNITY HEALTH CHOICE - [facility] xxxxxxxxx 2018-P [address] MANAGED MEDICAID HEALTH [facility] [id number] [place], [place] [address] documented as of this encounter"
--- OUTSIDE RECORDS SUMMARY | 2019-08-13 21:34 | XMS REPORT | Summary of Care ---
Author Author [facility] - Health Organization [facility] - Health Address Unknown Phone Unavailable Care Team Providers Care Building Contractor Name Role Phone Pcp, Patient Does Not Have A PCP [phone] Reason for Visit * Reason Comments Results Encounter Details Care Team Description Date Type Department Angeli Hester MD [address] [place] [address] Results 11/07/2018 Telephone [facility] [address] [place] [address] Allergies Comments Active Allergy Reactions Severity Noted Date Azithromycin Swelling 09/05/2018 documented as of this encounter (statuses as of 11/07/2018) Medications End Date Status Medication Sig Dispensed [...] 9 Vaginitis and (two) times vulvovaginitis daily. documented as of this encounter (statuses as of 11/07/2018) Active Problems Estimated Date of Delivery Comments Yes 12/14/2018 Based on last menst rual period of 03/09/2018 (Exact Date) No additional problems on filedocumented as of this encounter (statuses as of 11/07/2018) Immunizations Name Administration Dates Next Due TDAP [...] Date Type Specialty Ariela Mauricio MD [address] [place] [address] [phone] 11/09/2018 Routine Obstetrics & Gyneco logy Visit Health Maintenance Due Date Last Done Comments PNEUMOCOCCAL 0-64 YEARS 06/17/1985 COMBINED SERIES (1 of 1 - PPSV23) PAP SMEAR 06/17/2000 INFLUENZA VACCINE (#1) 2018 DTaP,Tdap,and Td Vaccines 09/21/2028 09/21/2018 (2 - Td) documented as of this encounter Results Not on filedocumented in this encounter Visit Diagnoses Diagnosis Vaginitis and vulvovaginitis - Primary Vaginitis and vulvovaginitis, unspecifi ed documented in this encounter Insurance Type Payer Benefit Subscriber ID Effective Phone Address Plan / Dates Group Medicaid COMMUNITY HEALTH CHOICE - [facility] xxxxxxxxx 2018-P [address] MANAGED MEDICAID HEALTH resent [id number] [place], [place] [address] documented as of this encounter
--- OUTSIDE RECORDS SUMMARY | 2019-08-13 21:34 | XMS REPORT | Summary of Care ---
Author Author [facility] - Health Organization [facility] - Health Address Unknown Phone Unavailable Care Team Providers Care Supervisor Belt And Link Assembly Name Role Phone Pcp, Patient Does Not Have A PCP [phone] Reason for Visit * Reason Comments Rx Concern/Question Encounter Details Care Team Description Date Type Department Angeli Hester MD [address] [place] [address] Rx Concern/Question 11/06/2018 Telephone [facility] [address] [place] [address] Allergies Comments Active Allergy Reactions [...] (three) times disorder daily for 90 days. documented as of this encounter (statuses as [...] Date Type Specialty Ariela Mauricio MD [address] [place] [address] [phone] 11/09/2018 Routine Obstetrics & Gyneco logy Visit Health Maintenance Due Date Last Done Comments PNEUMOCOCCAL 0-64 YEARS 06/17/1985 COMBINED SERIES (1 of 1 - PPSV23) PAP SMEAR 06/17/2000 INFLUENZA VACCINE (#1) 2018 DTaP,Tdap,and Td Vaccines 09/21/2028 09/21/2018 (2 - Td) documented as of this encounter Results Not on filedocumented in this encounter Visit Diagnoses Diagnosis Generalized anxiety disorder - Primary Other migraine without status migrainos us, not intractable Oral hypoglycemic controlled White clas sification A2 gestational diabetes mellitus (GDM) documented in this encounter Insurance Type Payer Benefit Subscriber ID Effective Phone Address Plan / Dates Group Medicaid COMMUNITY HEALTH CHOICE - COMMUNITY xxxxxxxxx 2018-P [address] MANAGED MEDICAID HEALTH [facility] [id number] [place], [place] [address] documented as of this encounter
--- OUTSIDE RECORDS SUMMARY | 2019-08-13 21:34 | XMS REPORT | Summary of Care ---
Author Author [facility] - Health Organization [facility] - Health Address Unknown Phone Unavailable Care Team Providers Care Pipe Fitter Supervisor Maintenance Name Role Phone Pcp, Patient Does Not Have A PCP [phone] Reason for Visit * Reason Comments Rx Concern/Question Auth Encounter Details Care Team Description Date Type Department Angeli Hester MD [address] [place] [address] Rx Concern/Question (Auth) 10/17/2018 Telephone [facility] [address] [place] [address] Allergies Comments Active Allergy Reactions [...] Date Type Specialty Angeli Hester MD [address] [place], [place] [address] 10/25/2018 Routine Obstetrics & Gyneco logy Visit [...] xxxxxxxxx 2018-P [address] MANAGED MEDICAID HEALTH [facility] [id number] [place], [place] [address] documented as of this encounter
--- OUTSIDE RECORDS SUMMARY | 2019-08-13 21:34 | XMS REPORT | Summary of Care ---
Author Author [facility] - Health Organization [facility] - Health Address Unknown Phone Unavailable Care Team Providers Care Overlock Collar Setter Name Role Phone Pcp, Patient Does Not Have A PCP [phone] Reason for Visit * Reason Comments ROUTINE VISIT NON-STRESS TEST Encounter Details Care Team Description Date Type Department Angeli Hester MD [address] [place] [address] Supervision of high-risk of el eloise multigravida (Primary Dx); Oral hypoglycemic controlled White classification A2 gestational diabetes mellitus (GDM); Asthma, unspecified asthma severity, unspecified whether complicated, unspecified whether persistent; Insufficient antepartum care; Previous delivery affecting , antepartum 11/14/2018 Routine [facility]- [facility] [address] [place] [address] Allergies Comments Active Allergy Reactions Severity Noted Date Azithromycin Swelling 09/05/2018 documented as of this encounter (statuses as of 11/14/2018) Medications End Date Status Medication Sig Dispensed [...] daily with gestational diabetes meals. mellitus (GDM) documented as of this encounter (statuses as of 11/14/2018) Active Problems Estimated Date of Delivery Comments Yes 12/14/2018 Based on last menst rual period of 03/09/2018 (Exact Date) No additional problems on filedocumented as of this encounter (statuses as of 11/14/2018) Immunizations Name Administration Dates Next Due TDAP [...] Time Taken Comments Vital Sign 126/80 11/14/2018 11:03 AM CDT Blood Pressure 78 11/14/2018 11:03 AM CDT Pulse - - Temperature - - Respiratory Rate - - Oxygen Saturation - - Inhaled Oxygen Concentration 80.4 kg (177 lb 3.2 oz) 11/14/2018 11:03 AM CDT Weight 175.3 cm (5' 9") 11/14/2018 11:03 AM CDT Height 26.17 11/14/2018 11:03 AM CDT Body Mass Index documented in this encounter Patient Instructions * Patient Instructions* Angeli Hester MD - 11/14/2018 10:30 AM CDT documented in this encounter Progress Notes * Angeli Hester MD - 11/14/2018 10:30 AM CDT Chief complaint: care HPI Delma Hanley is a 38 year old female at 35w5d presenting for care. She went to [facility] this Am for anxiety. She reports good movement, feels li ke baby has dropped, no bleeding/LOF. Histories OB History Para Term AB Living [...] file Gets together: Not on file Attends orthodoxy service: Not on file Active member of [...] list which includes the following prescription(s ): sertraline, fluconazole, metronidazole, buspirone, glyburide, and propranolol . Review of Systems Constitutional: Negative. Respiratory: Negative. Cardiovascular: Negative. Gastrointestinal: Negative. Genitourinary: Negative. Musculoskeletal: Negative. Psychiatric/Behavioral: Negative. BP 126/80 | Pulse 78 | Ht 5' 9" (1.753 m) | Wt 177 lb 3.2 oz (80.4 kg) | LMP 03/09/2018 (Exact Date) | BMI 26.17 kg/m Pregravid BMI: Could not be calculated [...] elderly multigravida (primary encounter d iagnosis) Comment: started to do NST, however base line wandering between 100s and 110s an d contractions every 2 minutes, stopped prior to completing and sent to L&D for further eval, if discharged follow up Monday. Oral hypoglycemic controlled White classification A2 gestational diabetes mellit us (GDM) Comment: FSBGs much improved, will increase to 5 mg BID Angeli Hester MD, 11/14/2018 documented in this encounter Plan of Treatment Health Maintenance Due Date Last Done Comments PNEUMOCOCCAL 0-64 YEARS 06/17/1985 COMBINED SERIES (1 of 1 - PPSV23) PAP SMEAR 06/17/2000 INFLUENZA VACCINE (#1) 2018 DTaP,Tdap,and Td Vaccines 09/21/2028 09/21/2018 (2 - Td) documented as of this encounter Results Not on filedocumented in this encounter Visit Diagnoses Diagnosis Supervision of high-risk of e lderly multigravida - Primary Oral hypoglycemic controlled White clas sification A2 gestational diabetes mellitus (GDM) Asthma, unspecified asthma severity, un specified whether complicated, unspecified whether persistent Insufficient antepartum care Previous delivery affecting pr egnancy, antepartum Previous delivery, antepartum condition or complication documented in this encounter Insurance Type Payer Benefit Subscriber ID Effective Phone Address Plan / Dates Group Medicaid COMMUNITY HEALTH CHOICE - COMMUNITY xxxxxxxxx 2018-P [address] MANAGED MEDICAID HEALTH [facility] [id number] [place], [place] [address] documented as of this encounter
--- OUTSIDE RECORDS SUMMARY | 2019-08-13 21:34 | XMS REPORT | Summary of Care ---
Author Author [facility] - Health Organization [facility] - Health Address Unknown Phone Unavailable Care Team Providers Care Manager Market Name Role Phone Pcp, Patient Does Not Have A PCP [phone] Reason for Visit * Reason Comments ULTRASOUND * ([place]) Referred By Contact Referred To Contact Status Reason Specialty Diagnoses / Procedures Angeli Hester MD [address] [place] [address] Closed Maternal Diagnoses Medicine Oral hypoglycemic controlled White classification A2 gestational diabetes mellitus (GDM) P rocedures CONSULT MATERNAL MEDICINE ULTRASOUND Encounter Details Care Team Description Date Type Department Maryanne Mendez MD [address] [facility] [id number] [place], [place] [id number] Jo-Ann Zamora [id number] [place], [place] [address] 1, Clc Mf Usg Room Gestational diabetes mellitus (GDM) cont rolled on oral hypoglycemic drug, antepartum; Encounter for ultrasound to check growth 11/12/2018 Cake Washer [facility], [address], [address] [place] [address] Allergies Comments Active Allergy Reactions Severity Noted Date Azithromycin Swelling 09/05/2018 documented as of this encounter (statuses as of 11/12/2018) Medications End Date Status Medication Sig Dispensed [...] as of this encounter (statuses as of 11/12/2018) Active Problems Estimated Date of Delivery Comments Yes 12/14/2018 Based on last menst rual period of 03/09/2018 (Exact Date) No additional problems on filedocumented as of this encounter (statuses as of 11/12/2018) Immunizations Name Administration Dates Next Due TDAP [...] Description Date Type Specialty Angeli Hester MD [address] [place] [address] [phone] 11/14/2018 Routine Obstetrics & Gyneco logy Visit Health Maintenance Due Date Last Done Comments PNEUMOCOCCAL 0-64 YEARS 06/17/1985 COMBINED SERIES (1 of 1 - PPSV23) PAP SMEAR 06/17/2000 INFLUENZA VACCINE (#1) 2018 DTaP,Tdap,and Td Vaccines 09/21/2028 09/21/2018 (2 - Td) documented as of this encounter Results Not on filedocumented in this encounter Visit Diagnoses Diagnosis Gestational diabetes mellitus (GDM) con trolled on oral hypoglycemic drug, antepartum Encounter for ultrasound to check growth documented in this encounter Insurance Type Payer Benefit Subscriber ID Effective Phone Address Plan / Dates Group Medicaid COMMUNITY HEALTH CHOICE - COMMUNITY xxxxxxxxx 2018-P [address] MANAGED MEDICAID HEALTH [facility] [id number] [place], [place] [address] documented as of this encounter
--- OUTSIDE RECORDS SUMMARY | 2019-08-13 21:34 | XMS REPORT | Summary of Care ---
Author Author [facility] - Health Organization [facility] - Health Address Unknown Phone Unavailable Care Team Providers Care Home Care Coordinator Name Role Phone Pcp, Patient Does Not Have A PCP [phone] Reason for Visit * Reason Comments Refill Request Encounter Details Care Team Description Date Type Department Angeli Hester MD [address] [place] [address] Refill Request 11/12/2018 Refill [facility] [address] [place] [address] Allergies Comments Active Allergy Reactions [...] mg Take 1 tablet 60 tablet 2 11/06/2 01 tabletIndications: Oral by mouth 2 9 [...] mg Take 1 tablet 14 tablet 0 08/ 21/201 tabletIndications: by mouth 2 9 Vaginitis and [...] Description Date Type Specialty Angeli Hester MD [address] [place], [place] [address] 11/14/2018 Routine Obstetrics & Gyneco logy Visit [...] 2018-P [address] MANAGED MEDICAID HEALTH resent [id number] [place], [place] [address] documented as of this encounter
--- OUTSIDE RECORDS SUMMARY | 2019-08-13 21:34 | XMS REPORT | Summary of Care ---
Author Author [facility] - Health Organization [facility] - Health Address Unknown Phone Unavailable Care Team Providers Care Handbag Parts Cutter Name Role Phone Pcp, Patient Does Not Have A PCP [phone] Reason for Visit * Reason Comments Rx Concern/Question Auth Encounter Details Care Team Description Date Type Department Angeli Hester MD [address] [place] [address] Rx Concern/Question (Auth) 10/17/2018 Telephone [facility] [address] [place] [address] Allergies Comments Active Allergy Reactions [...] filedocumented in this encounter Plan of Treatment Health [...] 2018-P [address]OX MANAGED MEDICAID HEALTH [facility] [id number] [place], [place] [address] documented as of this encounter
--- OUTSIDE RECORDS SUMMARY | 2019-08-13 21:34 | XMS REPORT | Summary of Care ---
Author Author [facility] - Health Organization [facility] - Health Address Unknown Phone Unavailable Care Team Providers Care Perch Mender Name Role Phone Pcp, Patient Does Not Have A PCP [phone] Reason for Visit * Reason Comments Rx Concern/Question Auth Encounter Details Care Team Description Date Type Department Agneli Hester MD [address] [place] [address] Rx Concern/Question (Auth) 10/17/2018 Telephone [facility] [address] [place] [address] Allergies Comments Active Allergy Reactions [...] 2018-P P[address] BOX MANAGED MEDICAID HEALTH [facility] [id number] [place], [place] [address] documented as of this encounter
--- OUTSIDE RECORDS SUMMARY | 2019-08-13 21:34 | XMS REPORT | Summary of Care ---
Author Author [facility] - Health Organization [facility] - Health Address Unknown Phone Unavailable Care Team Providers Care Energy Consultant Name Role Phone Pcp, Patient Does Not Have A PCP Reason for Visit * Reason Comments Rx Concern/Question Auth Encounter Details Care Team Description Date Type Department Angeli Hester MD [address] [place] [address] Rx Concern/Question (Auth) 10/17/2018 [facility]phone [facility] [address] [place] [address] Allergies Comments Active Allergy Reactions [...] xxxxxxxxx 2018-P P[address]O. BOX MANAGED MEDICAID HEALTH [facility] [id number] [place], [place] [address] documented as of this encounter
--- OUTSIDE RECORDS SUMMARY | 2019-08-13 21:34 | XMS REPORT | Summary of Care ---
Author Author [facility] - Health Organization [facility] - Health Address Unknown Phone Unavailable Care Team Providers Care Household Appliance Installer Name Role Phone Pcp, Patient Does Not Have A PCP [phone] Reason for Visit * Reason Comments Rx Concern/Question Auth Encounter Details Care Team Description Date Type Department Angeli Hester MD [address] [place] [address] Rx Concern/Question (Auth) 10/17/2018 Telephone [facility] [address] [place] [address] Allergies Comments Active Allergy Reactions [...] xxxxxxxxx 2018-P P.O. BOX MANAGED MEDICAID HEALTH [place] [id number] [place], [place] [address] documented as of this encounter
--- OUTSIDE RECORDS SUMMARY | 2019-08-13 21:34 | XMS REPORT | Summary of Care ---
Author Author [facility] - Health Organization [facility] - Health Address Unknown Phone Unavailable Care Team Providers Care Cinder Crane Operator Name Role Phone Pcp, Patient Does Not Have A PCP [phone] Reason for Visit * Reason Comments Leg Pain Encounter Details Care Team Description Date Type Department Madisyn Herzog, ALEX [address] [place] [address] Leg Pain 10/25/2018 Nurse Triage [facility] [address] [place] [phone] Allergies Comments Active Allergy Reactions Severity Noted Date Azithromycin Swelling 09/05/2018 documented as of this encounter (statuses as of 10/25/2018) Medications End Date Status Medication Sig Dispensed [...] as of this encounter (statuses as of 10/25/2018) Active Problems Estimated Date of Delivery Comments Yes 12/14/2018 Based on last menst rual period of 03/09/2018 (Exact Date) No additional problems on filedocumented as of this encounter (statuses as of 10/25/2018) Immunizations Name Administration Dates Next Due TDAP [...] Dates Group Medicaid COMMUNITY HEALTH CHOICE - [facility] xxxxxxxxx 2018-P P[address]O. BOX MANAGED MEDICAID HEALTH [facility] [id number] [place], [place] [address] documented as of this encounter
--- OUTSIDE RECORDS SUMMARY | 2019-08-13 21:34 | XMS REPORT | Summary of Care ---
Author Author [facility] - Health Organization [facility] - Health Address Unknown Phone Unavailable Care Team Providers Care Db2 Dba Name Role Phone Pcp, Patient Does Not Have A PCP [phone] Reason for Visit * Reason Comments Notification Encounter Details Care Team Description Date Type Department Angeli Hester MD [address] [place] [address] Notification 11/14/2018 Telephone [facility] [address] [place] [address] Allergies Comments Active Allergy Reactions [...] 2018-P P.O. BOX MANAGED MEDICAID HEALTH resent [id number] [place], [place] [address] Behavioral th [facility] [id number] 2018-P 500 - MANAGED MEDICAID BEHAVIORAL resent [facility] , [address] [place] [address] documented as of this encounter
--- OUTSIDE RECORDS SUMMARY | 2019-08-13 21:34 | XMS REPORT | Summary of Care ---
Author Author [facility] - Health Organization [facility] - Health Address Unknown Phone Unavailable Care Team Providers Care Funeral Pre Arrangement Counselor Name Role Phone Pcp, Patient Does Not Have A PCP [phone] Reason for Visit * Reason Comments Results Encounter Details Care Team Description Date Type Department Angeli Hester MD [address] [place] [address] Results 11/07/2018 Telephone [facility] [address] [place] [address] Allergies Comments Active Allergy Reactions [...] Date Type Specialty Ariela Mauricio MD [address] [place] [address] [phone] 11/09/2018 Routine Obstetrics & Gyneco logy Visit [...] Dates Group Medicaid COMMUNITY HEALTH CHOICE - [facility] xxxxxxxxx 2018-P P.O. NA[address] MANAGED MEDICAID HEALTH resent [id number] [place], [place] [address] documented as of this encounter
--- OUTSIDE RECORDS SUMMARY | 2019-08-13 21:34 | XMS REPORT | Summary of Care ---
Author Author [facility] - Health Organization [facility] - Health Address Unknown Phone Unavailable Care Team Providers Care Control Systems Specialist Name Role Phone Pcp, Patient Does Not Have A PCP [phone] Reason for Visit * Reason Comments Rx Concern/Question Auth Encounter Details Care Team Description Date Type Department Angeli Hester MD [address] [place] [address] Rx Concern/Question (Auth) 10/17/2018 Telephone [facility] [address] [place] [address] Allergies Comments Active Allergy Reactions [...] Date Type Specialty Angeli Hester MD [address] [place], [place] [id number] 10/25/2018 Routine Obstetrics & Gyneco logy Visit [...] HEALTH [facility] [id number] [place], [place] [address] documented as of this encounter
--- OUTSIDE RECORDS SUMMARY | 2019-08-13 21:34 | XMS REPORT | Summary of Care ---
Author Author [facility] - Health Organization [facility] - Health Address Unknown Phone Unavailable Care Team Providers Care Supervising Editor Trailer Name Role Phone Pcp, Patient Does Not Have A PCP [phone] Reason for Visit * Reason Comments Refill Request Encounter Details Care Team Description Date Type Department Angeli Hester MD [address] [place] [address] Refill Request 10/31/2018 Refill [facility] [place] [address] [place] [address] Allergies Comments Active Allergy Reactions Severity Noted Date Azithromycin Swelling 09/05/2018 documented as of this encounter (statuses as of 11/13/2018) Medications No known medicationsdocumented as of this encounter (statuses as of 11/13/2018) Active Problems Estimated Date of Delivery Comments Yes 12/14/2018 Based on last menst rual period of 03/09/2018 (Exact Date) No additional problems on filedocumented as of this encounter (statuses as of 11/13/2018) Immunizations Name Administration Dates Next Due TDAP [...] Description Date Type Specialty Angeli Hester MD [address] [place], [place] [address] 11/14/2018 Routine Obstetrics & Gyneco logy Visit [...] xxxxxxxxx 2018-P P.O. BOX MANAGED MEDICAID HEALTH [facility] [id number] [place], [place] [address] documented as of this encounter
--- OUTSIDE RECORDS SUMMARY | 2019-08-13 21:34 | XMS REPORT | Summary of Care ---
Author Author [facility] - Health Organization [facility] - Health Address Unknown Phone Unavailable Care Team Providers Care Paleontology Teacher Name Role Phone Pcp, Patient Does Not Have A PCP [phone] Reason for Referral * (STAT) Referred By Contact Referred To Contact Status Reason Specialty Diagnoses / Procedures Angeli Hester MD [address] [place], [place] [phone] Marilynn Ayoub MD [address] [place] [address] New Request Psychiatry Diagnoses Generalized anxiety disorder P rocedures CONSULT/REFERRAL PSYCHIATRY ADULT * ([place]) Referred By Contact Referred To Contact Status Reason Specialty Diagnoses / Procedures Angeli Hester MD [address] [place], [place] [phone] New Request Maternal Diagnoses Medicine Oral hypoglycemic controlled White classification A2 gestational diabetes mellitus (GDM) P rocedures CONSULT MATERNAL MEDICINE ULTRASOUND Reason for Visit * Reason Comments ROUTINE VISIT NON-STRESS TEST Encounter Details Care Team Description Date Type Department Angeli Hester MD [address] [place] [address] [phone] Supervision of high-risk of el eloise multigravida (Primary Dx); Insufficient antepartum care; Previous delivery affecting , antepartum; Generalized anxiety disorder; Other migraine without status migrainosus, not intractable; Oral hypoglycemic controlled White classification A2 gestational diabetes mellitus (GDM); Vaginal discharge during in third trimester 11/06/2018 Routine [facility] [address] [place] [address] Allergies Comments Active Allergy Reactions Severity Noted Date Azithromycin Swelling 09/05/2018 documented as of this encounter (statuses as of 11/06/2018) Medications End Date Status Medication Sig Dispensed Refills Start Date Active cyclobenzaprine 10 mg Take 1 tablet 20 tablet 0 tabletIndications: Muscle by mouth at 9 spasm bedtime as needed for Muscle Spasms. Active metoclopramide HCl 10 mg Take 1 tablet 30 tablet 1 tabletIndications: by mouth 9 Nausea/vomiting in every 8 (eight) hours as needed for Nausea and Vomiting (N/V) or Gastroesophag eal reflux. Active pantoprazole 40 mg EC Take 1 tablet 90 tablet 1 tabletIndications: by mouth 9 Nausea/vomiting in daily. , Heartburn during in third trimester Active busPIRone 15 mg Take 1 tablet 90 tablet 1 11/07/19 1 tabletIndications: by mouth 3 9 Generalized anxiety (three) times disorder daily. Active propranolol 80 mg Take 1 tablet 60 tablet 1 tabletIndications: Other by mouth 2 9 migraine without status (two) times migrainosus, not daily. intractable Active glyBURIDE 2.5 mg Take 1 tablet 30 tablet 1 01 tabletIndications: Oral by mouth 2 9 hypoglycemic controlled (two) times White classification A2 daily with gestational diabetes meals. mellitus (GDM) 11/06/2018 Discontinued propranolol (INDERAL XL) Take 1 30 [...] Signs Reading Time Taken Comments Vital Sign 132/77 11/06/2018 9:57 AM CDT Blood Pressure 102 11/06/2018 9:57 AM CDT Pulse - - Temperature - - Respiratory Rate - - Oxygen Saturation - - Inhaled Oxygen Concentration 80.7 kg (178 lb) 11/06/2018 9:57 AM CDT Weight 175.3 cm (5' 9") 11/06/2018 9:57 AM CDT Height 26.29 11/06/2018 9:57 AM CDT Body Mass Index documented in this encounter Progress Notes * Angeli Hester MD - 11/06/2018 9:15 AM CDT Chief complaint: care HPI Delma Hanley is a 38 year old female at 34w4d presenting for care. She continues to have a lot of back/pelvic pain and foot pain, continues t o have migraines, has not yet started propranolol. She also reports daily anxiet y symptoms, if very anxious about the . Histories OB History Para Term AB Living [...] file Gets together: Not on file Attends zoroastrianism service: Not on file Active member of [...] list which includes the following prescription(s ): buspirone, glyburide, propranolol, metoclopramide hcl, pantoprazole, and cycl obenzaprine. Review of Systems Constitutional: Negative. Respiratory: Negative. Breasts: Negative. Cardiovascular: Negative. Gastrointestinal: Negative. Genitourinary: Positive for pelvic pain. Musculoskeletal: Positive for back pain. Skin: Negative. Psychiatric/Behavioral: The patient is nervous/anxious. BP 132/77 | Pulse 102 | Ht 5' 9" (1.753 m) | Wt 178 lb (80.7 kg) | LMP 03/09 (Exact Date) | BMI 26.29 kg/m Pregravid BMI: Could not be calculated Physical Exam Vitals reviewed. Constitutional: She is oriented to person, place, and time. She appears well-dev eloped, well-nourished and well-groomed. Abdominal: Abdomen is soft. No mass palpated. No tenderness present. There is no rigidity and no guarding. Neuro/Psychiatric: She has a normal mood and affect. She is oriented to person, place, and time. Skin: Skin normal. External genitalia: Normal external genitalia appropriate for age. Vagina:Vaginal discharge found. Cervix: Normal cervix. Closed visually Assessment/Plan Supervision of high-risk of elderly multigravida (primary encounter d iagnosis) Comment: NST with indeterminate baseline and frequent contractions, cervix visua lly closed, to L&d for monitoring and recheck Plan: GROUP B STREPTOCOCCUS BY PCR Plan for follow up later this week Insufficient antepartum care Comment: contractions on NST q2-3 minutes, cervix visually closed, GBS a nd affirm sent Plan: GROUP B STREPTOCOCCUS BY PCR, NON-STRESS TEST Urged compliance with visits, needs to come 2x week for NSTs Previous delivery affecting , antepartum Comment:sending ROR for op report, plan for repeat with BTL Generalized anxiety disorder Comment: buspar sent to pharmacy, STAT specialist referral placed Plan: busPIRone 15 mg tablet, CONSULT/REFERRAL PSYCHIATRY ADULT Other migraine without status migrainosus, not intractable Comment: needs scriprt resent, BP normal Plan: propranolol 80 mg tablet Oral hypoglycemic controlled White classification A2 gestational diabetes mell us (GDM) Comment: most values on log elevated throughout the day, reviewed importance of compliance with diabetic diet, discussed starting medication, advised that insul in is recommended as first line, however patient does not think she would be abl e to give it to herself, wants to try oral therapy first, sent to pharmacy; grow th scan ordered Plan: glyBURIDE 2.5 mg tablet, CONSULT MATERNAL MEDICINE ULTRASOUND, NON-STRESS TEST, Vaginal discharge during in third trimester Comment: white-yellow Plan: [facility] ONLY - VAGINAL PATHOGENS BY DNA PROBE Angeli Hester MD, 11/06/2018 documented in this encounter Plan of Treatment Care Team Description Date Type Specialty Ariela Mauricio MD [address] [place] [address] [phone] 11/09/2018 Routine Obstetrics & Gyneco logy Visit Date/Time Name Type Priority Associated Diag noses 11/06/2018 10:26 AM CDT GROUP B STREPTOCOCCUS BY LAB Routine Super vision of high-risk PCR of elderly multigravida Insufficient antepartum care 11/06/2018 10:26 AM CDT [facility] ONLY - VAGINAL LAB Routine Vaginal di scharge during PATHOGENS BY DNA PROBE in third trimester Health Maintenance Due Date Last Done Comments PNEUMOCOCCAL 0-64 YEARS 06/17/1985 COMBINED SERIES (1 of 1 - PPSV23) PAP SMEAR 06/17/2000 INFLUENZA VACCINE (#1) 2018 DTaP,Tdap,and Td Vaccines 09/21/2028 09/21/2018 (2 - Td) documented as of this encounter Procedures Comments Procedure Name Priority Date/Time Associated Diag nosis NON-STRESS TEST Routine 11/06/2018 Insuffic ient antepartum 10:29 AM CDT care Previous delivery affecting , antepartum Oral hypoglycemic controlled White classification A2 gestational diabetes mellitus (GDM) documented in this encounter Results * NON-STRESS TEST (11/06/2018 10:29 AM CDT) Specimen Narrative Performed At [facility] Baseline varies from 120s to 130s, mod mauricio with good accels, frequent contractions q2-3 minutes on toco Performing Organization Address City/State/Zipcode Ph one Number [facility] documented in this encounter Visit Diagnoses Diagnosis Supervision of high-risk of e lderly multigravida - Primary Insufficient antepartum care Previous delivery affecting pr egnancy, antepartum Previous delivery, antepartum condition or complication Generalized anxiety disorder Other migraine without status migrainos us, not intractable Oral hypoglycemic controlled White clas sification A2 gestational diabetes mellitus (GDM) Vaginal discharge during in t hird trimester documented in this encounter Insurance Type Payer Benefit Subscriber ID Effective Phone Address Plan / Dates Group Medicaid COMMUNITY HEALTH CHOICE - COMMUNITY xxxxxxxxx 2018-P P[address]O. BOX MANAGED MEDICAID HEALTH [facility] [id number] [address], [place] [address] documented as of this encounter
--- OUTSIDE RECORDS SUMMARY | 2019-08-13 21:34 | XMS REPORT | Summary of Care ---
Author Author [facility] - Health Organization [facility] - Health Address Unknown Phone Unavailable Care Team Providers Care Assessor Name Role Phone Pcp, Patient Does Not Have A PCP [phone] Reason for Visit * Reason Comments ROUTINE VISIT NON-STRESS TEST Encounter Details Care Team Description Date Type Department Angeli Hester MD [address] [place] [address] Supervision of high-risk of el eloise multigravida (Primary Dx); Oral hypoglycemic controlled White classification A2 gestational diabetes mellitus (GDM); Asthma, unspecified asthma severity, unspecified whether complicated, unspecified whether persistent; Insufficient antepartum care; Previous delivery affecting , antepartum 11/14/2018 Routine [facility] [address] [place] [address] Allergies Comments Active Allergy Reactions [...] 35w5d presenting for care. She went to [facility] for anxiety. She reports good [...] file Gets together: Not on file Attends christian service: Not on file Active member of [...] do NST, however base line wandering between 110s and 120s an d contractions every 2 minutes, stopped prior to completing and sent to L&D for further eval, if discharged follow up Monday. Oral hypoglycemic controlled White classification A2 gestational diabetes mellit us (GDM) Comment: FSBGs much improved, will increase to 5 mg BID Angeli Hester MD, 11/14/2018 Addendum: As of 12:28 patient had not yet presented to L&D, tried to contact her and her partner, no answer at either, left messages with both, will continue to try to follow up. Angeli Hester MD, 11/14/2018 documented in this [...] 2018-P P.O. BOX MANAGED MEDICAID HEALTH resent [id number] [place], [place] [address] documented as of this encounter
--- OUTSIDE RECORDS SUMMARY | 2019-08-13 21:35 | XMS REPORT | Summary of Care ---
Author Author [facility] - Health Organization [facility] - Health Address Unknown Phone Unavailable Care Team Providers Care Chemistry Technical Officer Name Role Phone Pcp, Patient Does Not Have A PCP Encounter Details Care Team Description Date Type Department Doctor Unassigned, [place] [address] [place] [address] 05/02/2019 Orders Only [facility] [address] [place] [address] Allergies Comments Active Allergy Reactions Severity Noted Date Azithromycin Swelling 09/05/2018 documented as of this encounter (statuses as of 05/20/2019) Medications End Date Status Medication Sig Dispensed Refills Start Date Active HYDROcodone-acetaminophen Take 1 tablet 10 tablet 0 5-325 mg by mouth 9 tabletIndications: every 6 (six) Full-term premature hours as rupture of membranes, needed for unspecified duration to Pain (scale onset of labor, 4-6) (If Gestational diabetes uncontrolled mellitus (GDM) affecting by , antepartum, Ibuprofen). Adjustment disorder with mixed anxiety and depressed mood, History of vaginal delivery following previous delivery, Request for sterilization, 37 weeks gestation of Active ibuprofen 600 mg Take 1 tablet 30 tablet 1 11/25/2 01 tabletIndications: by mouth 9 Full-term premature every 6 (six) rupture of membranes, hours as unspecified duration to needed for onset of labor, Pain (scale Gestational diabetes 1-3). mellitus (GDM) affecting , antepartum, Adjustment disorder with mixed anxiety and depressed mood, History of vaginal delivery following previous delivery, Request for sterilization, 37 weeks gestation of Active nicotine 7 mg/24 hr Apply 1 Patch 30 Patch 0 patchIndications: Tobacco to area(s) 9 use disorder every 24 (twenty-four) hours. Active propranolol 80 mg tablet Take 1 tablet 60 tablet 0 by mouth 2 9 (two) times daily. Active metoclopramide HCl 10 mg Take 1 tablet 15 tablet 0 tabletIndications: S/P by mouth 9 repeat low transverse every 6 (six) hours as needed for Nausea and Vomiting (N/V). documented as of this encounter (statuses as of 05/20/2019) Active Problems Problem Noted Date 37 weeks gestation of 11/25/2018 Anemia complicating in third trimester 10/2018 Premature rupture of membranes 11/23/2018 35 weeks gestation of 11/14/2018 Gestational diabetes mellitus (GDM) affecting pregnan cy, antepartum 11/14/2018 Adjustment disorder with mixed anxiety and depressed mood 11/14/2018 History of vaginal delivery following previous rani an delivery 11/14/2018 Previous section 11/14/2018 Tobacco use disorder 11/14/2018 Request for sterilization 11/14/2018 documented as of this encounter (statuses as of 05/20/2019) Immunizations Name Administration Dates Next Due TDAP [...] more drinks on one Not asked occasion? Education Answer Date Recorded What is the highest level of school you have High school g raduate 11/23/2018 completed or the highest degree you eliane e received? Financial Resource Strain Answer Date Recorde d How hard is it for you to pay for the very basics Not hard at all 11/23/2018 like food, housing, medical care, and h eating? Food Insecurity Answer Date Recorded Within the past 12 months, you worried that your Never netta e 11/23/2018 food would run out before you got money to buy more. Within the past 12 months, the food you bought Never true 11/23/2018 just didn't last and you didn't have mo tasha to get more. Transportation Needs Answer Date Recorded In the past 12 months, has lack of transportation No 11/23/2018 kept you from medical appointments or f rom getting medications? In the past 12 months, has lack of transportation No 11/23/2018 kept you from meetings, work, or gettin g things needed for daily living? Sex Assigned at Date Recorded Not on file Industry Job Start Date Occupation Not on file Not on file Not on file Travel End Travel History Travel Start No recent travel history available. documented as of this encounter Last Filed Vital Signs Not on filedocumented in this encounter Plan of Treatment Health Maintenance Due Date Last Done Comments HgA1C 06/17/1980 PNEUMOCOCCAL 0-64 YEARS 06/17/1985 COMBINED SERIES (1 of 1 - PPSV23) EYE EXAM 06/17/1989 LDL-C 06/17/1989 URINE MICROALBUMIN 06/17/1989 FOOT EXAM 06/17/1997 PAP SMEAR 06/17/2000 INFLUENZA VACCINE (#1) 2018 CREATININE (SERUM) 10/31/2019 10/30/2018, 019 DTaP,Tdap,and Td Vaccines 09/21/2028 09/21/2018 (2 - Td) documented as of this encounter Procedures Comments Procedure Name Priority Date/Time Associated Diag nosis AUTHORIZATION FOR RELEASE Routine 05/02/2019 OF PHI 12:01 AM SUPPORT ARCHITECT documented in this encounter Results Not on filedocumented in this encounter Insurance Type Payer Benefit Subscriber ID Effective Phone Address Plan / Dates Group Medicaid COMMUNITY HEALTH CHOICE - COMMUNITY xxxxxxxxx 2018-P P[address]O. BOX MANAGED MEDICAID HEALTH resent [id number] [place], [place] [address] Behavioral th [facility] [id number] 2018-P 500 - MANAGED MEDICAID BEHAVIORAL resent [address], [address] [place] [address] documented as of this encounter
--- OUTSIDE RECORDS SUMMARY | 2019-08-13 21:35 | XMS REPORT | Summary of Care ---
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 Cell Name Role Phone Pcp, Patient Does Not Have A PCP [phone] Reason for Referral * (Routine) Referred By Contact Referred To Contact Status Reason Specialty Diagnoses / Procedures Mamadou Bello MD [address] [place] [address] New Request OB-GYNECOLOGY Diagnoses Full-term premature rupture of membranes, unspecified duration to onset of labor Gestational diabetes mellitus (GDM) affecting , antepartum Adjustment disorder with mixed anxiety and depressed mood History of vaginal delivery following previous delivery Request for sterilization 37 weeks gestation of P rocedures Discharge Follow-Up: Specialty Service OB-GYNECOLOGY; 2 Weeks Reason for Visit * Auth/Cert Referred By Contact Referred To Contact Status Reason Specialty Diagnoses / Procedures Clc [address] [place] [address] Obstetrics Diagnoses Premature rupture of membranes Encounter Details Care Team Description Date Type Department Mamadou Bello MD [address] [place] [address] Premature rupture of membranes 11/23/2018 [facility] Labor a nd - Encounter Delivery Unit [facility]LC 5 A 11/25/2018 [address] [place] [address] Allergies Comments Active Allergy Reactions Severity Noted Date Azithromycin Swelling 09/05/2018 documented as of this encounter (statuses as of 11/25/2018) Medications End Date Status Medication Sig Dispensed [...] 1 tablet 30 tablet 1 01 tabletIndications: by mouth 9 Full-term premature every 6 (six) rupture of membranes, hours as unspecified duration to needed for onset of labor, Pain (scale Gestational diabetes 1-3). mellitus (GDM) affecting , antepartum, Adjustment disorder with mixed anxiety and depressed mood, History of vaginal delivery following previous delivery, Request for sterilization, 37 weeks gestation of documented as of this encounter (statuses as of 11/25/2018) Active Problems Problem Noted Date 37 weeks [...] use disorder 11/14/2018 Request for sterilization 11/14/2018 Comments Yes documented as of this encounter (statuses as of 11/25/2018) Immunizations Name Administration Dates Next Due TDAP [...] 11/23/2018 completed or the highest degree you hav e received? Financial Resource Strain Answer Date [...] gettin g things needed for daily living? Comments Yes Sex Assigned at Date Recorded Not on file Industry Job Start Date Occupation Not on file Not on file Not on file Travel End Travel History Travel Start No recent travel history available. documented as of this encounter Last Filed Vital Signs Reading Time Taken Comments Vital Sign 136/90 11/24/2018 11:00 PM CDT Blood Pressure 64 11/24/2018 11:00 PM CDT Pulse 36.9 C (98.4 F) 11/24/2018 11:00 PM CDT Temperature 18 11/24/2018 11:00 PM CDT Respiratory Rate 100% 11/24/2018 11:00 PM CDT Oxygen Saturation - - Inhaled Oxygen Concentration 81.2 kg (179 lb 1.6 oz) 11/23/2018 6:00 AM CDT Weight 174 cm (5' 8.5") 11/23/2018 6:00 AM CDT Height 26.84 11/23/2018 6:00 AM CDT Body Mass Index documented in this encounter Discharge Summaries * Mamadou Bello MD - 11/25/2018 10:11 AM CDT DISCHARGE SUMMARY - Date of Service: 11/25/18 ADMIT DATE: 11/23/2018 DISCHARGE DATE: 11/25/18 ATTENDING MD: Jalyn Hester MD ATTENDING MD AT DISCHARGE: Mamadou Bello MD PCP: PATIENT DOES NOT HAVE A PCP REASON FOR ADMISSION Admit For: PROM FINAL DIAGNOSIS: (the reason, after study, for admitting the patient to the hosp ital) PROM SECONDARY DIAGNOSIS: (any diagnosis that, on this admission, required clinical e valuation, therapeutic treatment, diagnostic procedures, extended hospital stay, or additional nursing care/monitoring) Principal Problem: Premature rupture of membranes (11/23/2018) POA: Yes Active Problems: Gestational diabetes mellitus (GDM) affecting , antepartum (11/14/2018 ) POA: Yes Adjustment disorder with mixed anxiety and depressed mood (11/14/2018) POA: Yes History of vaginal delivery following previous delivery (11/14/2018) P OA: Yes Request for sterilization (11/14/2018) POA: Yes 37 weeks gestation of (11/25/2018) POA: Yes Anemia complicating in third trimester (11/25/2018) POA: Yes PRINCIPAL PROCEDURE: Repeat section ADDITIONAL PROCEDURES: BTL SIGNIFICANT LAB/X-RAYS: HCT (%) Date Value 11/24/2018 32.3 (L) HGB (g/dL) Date Value 11/24/2018 10.1 (L) 11/23/2018 11.0 (L) Rubella: immune Type and Screen: RH postive HOSPITAL COURSE: Delma Hanley is a 38 year old female who underwent uncomplicated repeat rani an section with BTL. Routine postoperative care. Patient is ambulating, tolera ting regular diet, passing flatus and has good pain control with/ PO meds. She is stable for d/c home. CONDITION: good DIET: regular ACTIVITY: no strenuous activity, no heavy lifting and pelvic rest DISCHARGE MEDICATIONS: Current Discharge Medication List START taking these medications Details HYDROcodone-acetaminophen (NORCO 5) 1 tablet Take 1 tablet by mouth every 6 (six ) hours as needed for Pain (scale 4-6) (If uncontrolled by Ibuprofen). Qty: 10 tablet, Refills: 0 Start date: 11/25/2018 Associated Diagnoses: Full-term premature rupture of membranes, unspecified dur ation to onset of labor; Gestational diabetes mellitus (GDM) affecting , antepartum; Adjustment disorder with mixed anxiety and depressed mood; History of vaginal delivery following previous delivery; Request for steriliza tion; 37 weeks gestation of ibuprofen (IBU) 600 mg Take 600 mg by mouth every 6 (six) hours as needed for Pa in (scale 1-3). Qty: 30 tablet, Refills: 1 Start date: 11/25/2018 Associated Diagnoses: Full-term premature rupture of membranes, unspecified dur ation to onset of labor; Gestational diabetes mellitus (GDM) affecting , antepartum; Adjustment disorder with mixed anxiety and depressed mood; History of vaginal delivery following previous delivery; Request for steriliza tion; 37 weeks gestation of WOUND CARE: keep incision clean and dry DISCHARGE: Discharged: Home FOLLOW-UP APPOINTMENT: With Dr. Hester in 2 week(s) Mamadou Bello MD documented in this encounter Discharge Instructions * Instructions* Geovanna Browne, RN - 11/25/2018 Multidisciplinary Discharge Instructions (may include diet, dressing changes, ac tivity limits, written materials given to patient: DIET: Eat a well balanced diet; drink 6-8 glasses of fluids daily; eat fruits an d green, leafy vegetables. DAILY ACTIVITIES: 1. As much as you feel able to do. Rest when you are tired. 2. Limitations: Specify; No heavy lifting other than your baby for 4 weeks if y ou had surgery. TREATMENT AT HOME 1. Use a well-fitting bra to prevent breast engorgement 2. Resume intercourse as instructed by your physician. 3. Do not use douches or tampons for four weeks. 4. To help prevent urinary tract infection; after each urination and bowel movement, wipe and dry from front to back and change laurie pad. 5. Follow discharge instructions regarding baby care. 6. Follow family planning instructions. IMMEDIATE TREATMENT - Call Clinic or Your Physician 1. Increase in pain and tenderness of uterus. 2. Increased vaginal bleeding (bright red blood which soaks 2 pads in 1 hour or pass large clots). 3. Foul smelling vaginal discharge. 4. Burning in the tube that empties the urine from the bladder. 5. Painful breast engorgement or cracked nipples. 6. Pain, discharges, or gaping incision. 7. Temperature greater than 38.0C or 100.4F 8. Pain and tenderness of calf or thigh muscles. 9. No bowel movements in 4 days. For Problems or Questions Call: OB Clinic Family Planning [phone] or Emergency: Go to the closest emergency room or call 911 * Attachments The following attachments cannot be sent through Care Everywhere.* Depression, Understanding (Singaporean) * , After (Singaporean) * When to Call the Healthcare Provider, After Delivery (Singaporean) * Smoke Free,Benefits of Living (Singaporean) * Smoking Cessation (Singaporean) * Secondhand Smoke (Environmental Tobacco Smoke) (Singaporean) documented in this encounter Progress Notes * Mamadou Bello MD - 11/25/2018 10:05 AM CDT PROGRESS NOTE Subjective: Patient is a 38 year old, S/P and reason for : Elective repe at, post op day 2. She complains of bilateral feet swelling. Patient is ambulating, tolerating PO, passing flatus and has good pain control w/ PO meds Objective: Vital Signs: BP: (136-149)/(87-90) Temp: [36.6 C (97.9 F)-36.9 C (98.4 F)] Temp source: Oral (11/24 2300) Pulse: [64-92] Resp: [18] SpO2: [100 %] Height: -- Weight: -- BMI (calculated): -- Physical Exam: Gen: NAD, patient ambulating around room Chest: RRR, CTAB Abd: NT/ND, fundus firm at umbilicus, +BS. No guarding or rebound. Incision c /d/i LE: No TTP. Mild edema bilaterally Current Medications: Current Facility-Administered Medications Medication Dose Route Frequency Last Rate Last Dose bisacodyl (DULCOLAX) suppository 10 mg 10 mg Rectal QDAILYPRN diphenhydrAMINE (BENADRYL) tablet 25 mg 25 mg Oral Q6HPRN docusate calcium (SURFAK) capsule 240 mg 240 mg Oral QDAILYPRN 240 mg at 11/24/18 1918 HYDROcodone-acetaminophen (NORCO 5) 5-325 mg tablet 1 tablet 1 tablet Oral Q6HPRN HYDROcodone-acetaminophen (NORCO 5) 5-325 mg tablet 2 tablet 2 tablet Oral Q6HPRN 2 tablet at 11/25/18 0831 ibuprofen (IBU) tablet 600 mg 600 mg Oral Q6HPRN 600 mg at 11/25/18 0056 magnesium hydroxide (MILK OF MAGNESIA) 400 mg/5 mL suspension 30 mL 30 mL O ral QDAILYPRN 30 mL at 11/24/181917 simethicone (GAS RELIEF) chewable tablet 160 mg 160 mg Oral PC+HSPRN 160 mg at 11/24/181917 Labs: N/A Assessment/Plan: Principal Problem: Premature rupture of membranes (11/23/2018) POA: Yes -S/p repeat c/s -Routine postop care -Stable for d/c home today Active Problems: Gestational diabetes mellitus (GDM) affecting , antepartum (11/14/2018 ) POA: Yes -F/u 8 wks PP w/ PCP Adjustment disorder with mixed anxiety and depressed mood (11/14/2018) POA: Yes -F/u w/ following provider as scheduled History of vaginal delivery following previous delivery (11/14/2018) P OA: Yes -S/p repeat c/s Request for sterilization (11/14/2018) POA: Yes -S/p BTL 37 weeks gestation of (11/25/2018) POA: Yes -F/u postop w/ Dr. Hester Anemia complicating in third trimester (11/25/2018) POA: Yes -PNV w/ iron Mamadou Bello MD * Jennifer Fuentes, TECHNICAL INTERN - 11/23/2018 4:37 PM CDT Social Work Note: 11/23/2018 5:12 PM SW met with NEAL Nguyễn she reports living at [address] [place] [address]. NEAL reports that she has three other children at home. MOB reports she has a 4 year old and two teenage children about 15/16 years of age(ages not given on e boy and one girl). 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 MOB stated that FOB Erc "is some what supportive". NEAL stated that she is not on WIC but will apply and she gets about $600 in food stamps. NEAL has a car seat and all other baby items needed. MOB stated that she does have a history of anxiety and was taking Buspirone. Rep orts that she will most likely start on zoloft. MOB reports she has a follow up with Psychiatry for the purpose of medication. Reports that her mood is currentl y fine at this time. MOB does have a plan in place incase her mood changes, and plans to start/ remain current on a antidepressants. MOB reports that in her last use of CBD oil containing THC was this time. MOB reports that she stopped taking the oil when she found out that it was not good to take. SW contacted CPS all cases on MOB have been closed. Reports not us ing any other drug while . SW will continue to monitor Meconium and foll ow up with CPS if needed. SW provided community resources and action plan for patient if her mood changes. Plan need to follow up with CPS for Recommendations. Please do not DC home NB ho me with MOB. SW contacted CPS awaiting recommendations. SW will follow up with Meconium Screen. UDS NB presumptive positive for Methamphetamine. CPS report number: [id number] Jessica 5252 level one priority. Weekend animal care attendant pager number P. [phone] Jennifer Fuentes LMSW Social Work/Care Management Office.[phone]. Cell. [phone] Email. [email or web address] * Jennifer Fuentes LMSW - 11/23/2018 3:18 PM CDT Social Work Note: 11/23/2018 3:18 PM SW contacted CPS they do not have an open case on patient (NEAL) currently. SW attempted to meet with patient NEAL and she asked SW to leave and come back in 30 minutes. SERAFIN updated nurse. Jennifer Fuentes LMSW Social Work/Care Management Office.[phone]. Cell. [phone] Email. [email or web address] documented in this encounter Plan of Treatment Care Team Description Date Type Specialty Angeli Hester MD [address] [place] [address] [phone] 11/29/2018 Routine Obstetrics & Gyneco logy Visit Date/Time Name Type Priority Associated Diag noses 11/23/2018 8:15 AM CDT RUBELLA SCREEN IGG LAB [place] 11/23/2018 10:44 AM CDT SURGICAL PATHOLOGY EXAM LAB STAT Order Schedule Name Type Priority Associated Diag noses Ordered: 11/23/2018 POCT GLUCOSE(AGE >30DAYS) LAB Routine Full -term premature rupture of membranes, unspecified duration to onset of labor ONCE for 1 Occurrences starting 11/24/19 19 until 11/23/2018 RUBELLA SCREEN IGG [facility] [place] ONCE for 1 Occurrences starting 11/24/19 19 until 11/23/2018 Delayed Administration IMMUNIZATION/IN Routine until Day of Discharge- JECTION MMR (MEASLES/MUMPS/RUBELLA) VACCINE ONCE for 1 Occurrences starting 11/25/19 19 until 11/24/2018 GLUCOSE FASTING LAB [place] Health Maintenance Due Date Last Done [...] Procedure Name Priority Date/Time Associated Diag nosis CBC WITH DIFFERENTIAL Routine 11/24/2018 4:35 AM CDT CBC WITH DIFF Routine 11/24/2018 4:35 AM CDT GAL[facility] ONLY - SYPHILIS [place] 11/23/2018 IGG/IGM 8:15 AM CDT HIV 1/2 AG-AB WITH REFLEX [place] 11/23/2018 8:15 AM CDT CBC WITH DIFFERENTIAL [place] 11/23/2018 8:15 AM CDT HEPATITIS B SURFACE [place] 11/23/2018 ANTIGEN 8:15 AM CDT CBC WITH DIFF [place] 11/23/2018 8:15 AM CDT RHO (D) IMMUNE GLOBULIN Routine 11/23/2018 8:10 AM CDT TYPE AND SCREEN Routine 11/23/2018 8:10 AM CDT AUTHORIZATION TO RELEASE Routine 11/23/2018 PHI TO [facility] 12:01 AM CDT documented in this encounter Results * CBC WITH DIFFERENTIAL (11/24/2018 4:35 AM CDT) WBC 13.74 (H) 4.30 - 11.10 [facility] 10*3/L [facility] RBC 3.51 (L) 3.93 - 5.25 10*6/L [facility] HGB 10.1 (L) 11.6 - 15.0 g/dL [facility] HCT 32.3 (L) 35.7 - 45.2 % [facility] MCV 92.0 80.6 - 95.5 fL [facility] MCH 28.8 25.9 - 32.8 pg [facility] MCHC 31.3 (L) 31.6 - 35.1 g/dL [facility] RDW-SD 52.3 (H) 39.0 - 49.9 fL [facility] RDW-CV 16.2 (H) 12.0 - 15.5 % [facility] PLT 280 166 - 358 10*3/L [facility] MPV 11.3 9.5 - 12.9 fL [facility] NRBC/100 WBC 0.0 0.0 - 10.0 /100 WBCs [facility] NRBC x10^3 <0.01 10*3/L [facility] GRAN MAT (NEUT) 79.2 % [facility] Y % [facility] IMM GRAN % 0.50 % [facility] LYMPH % 13.9 % [facility] MONO % 5.1 % [facility] EOS % 1.2 % [facility] BASO % 0.1 % [facility] GRAN MAT 10.87 (H) 1.88 - 7.09 10*3/uL [facility] x10^3(ANC) [facility] IMM GRAN x10^3 0.07 (H) 0.00 - 0.06 10*3/uL [facility] LYMPH x10^3 1.91 1.32 - 3.29 10*3/uL [facility] MONO x10^3 0.70 0.33 - 0.92 10*3/uL [facility] EOS x10^3 0.17 0.03 - 0.39 10*3/uL [facility] BASO x10^3 <0.03 0.01 - 0.07 10*3/uL [facility] Specimen Blood - VENOUS Performing Organization Address City/State/Zipcode Ph one Number [facility] CLIA: [id number], [address] [place] [address] [address] [facility] * CBC WITH DIFFERENTIAL (11/23/2018 8:15 AM CDT) WBC 13.53 (H) 4.30 - 11.10 [facility] 10*3/L [facility] RBC 3.84 (L) 3.93 - 5.25 10*6/L [facility] HGB 11.0 (L) 11.6 - 15.0 g/dL [facility] HCT 34.6 (L) 35.7 - 45.2 % [facility] MCV 90.1 80.6 - 95.5 fL [facility] MCH 28.6 25.9 - 32.8 pg [facility] MCHC 31.8 31.6 - 35.1 g/dL [facility] RDW-SD 50.8 (H) 39.0 - 49.9 fL [facility] RDW-CV 16.1 (H) 12.0 - 15.5 % [facility] PLT 332 166 - 358 10*3/L [facility] TORY [facility] MPV 11.7 9.5 - 12.9 fL [facility] NRBC/100 WBC 0.2 0.0 - 10.0 /100 WBCs [facility]AT[facility] NRBC x10^3 0.03 10*3/L [facility] GRAN MAT (NEUT) 76.8 % [facility]ATOR Y % [facility] IMM GRAN % 0.70 % [facility] LYMPH % 16.9 % [facility] MONO % 4.8 % [facility] EOS % 0.7 % [facility] BASO % 0.1 % [facility] GRAN MAT 10.37 (H) 1.88 - 7.09 10*3/uL [facility] x10^3(ANC) [facility] IMM GRAN x10^3 0.10 (H) 0.00 - 0.06 10*3/uL [facility] LYMPH x10^3 2.29 1.32 - 3.29 10*3/uL [facility] MONO x10^3 0.65 0.33 - 0.92 10*3/uL [facility] EOS x10^3 0.10 0.03 - 0.39 10*3/uL [facility] BASO x10^3 <0.03 0.01 - 0.07 10*3/uL [facility] Specimen Blood - VENOUS Performing Organization Address City/State/Zipcode Ph one Number [facility] CLIA: [id number], [address] [place], [place] [address] [facility] * HIV 1/2 AG-AB WITH REFLEX (11/23/2018 8:15 AM CDT) HIV 1/2 Ag-Ab Negative Negative [facility] with Reflex SERVICES HIV 0.06 [facility] Semi-quantitati SERVICES ve Specimen Blood - VENOUS Narrative Performed At Non-reactive for HIV-1 antigen and HIV-1/HIV-2 antibo dies.No laboratory [facility] evidence of HIV infection.Repeat in 2-4 weeks if acute HIV infection is SERVICES suspected. Performing Organization Address [facility] Ph one Number [facility] SERVICES CLIA: [id number], [address] [place] [address] [facility] * GALV ONLY - SYPHILIS IGG/IGM (11/23/2018 8:15 AM CDT) Pathologist [facility] Syphilis Non-reactive Non-reactive [facility] IgG/IgM SERVICES Specimen Blood - VENOUS Narrative Performed At Non-reactive - No serologic evidence of T. pallidum i nfection. Cannot exclude [facility] incubating or early syphilis. Submit a second specimen in 2-4 weeks if syphilis SERVICES is clinically suspected. Equivocal - Further testing to follow. Reactive - Further testing to follow. Performing Organization Address [facility] one Number [facility] SERVICES CLIA: [id number], [address] [place] [address] [facility] * Hepatitis B Surface Antigen (11/23/2018 8:15 AM CDT) Pathologist [facility] HBsAg HEPATITIS B SURFACE ANTIGEN Negative [facility] NEGATIVE SERVICES-[facility] HBsAg 0.04 [facility] Semi-Quantitati SERVICES-[facility] Specimen Blood - VENOUS Performing Organization Address [facility] one Number [facility] CLIA: [id number], [address] [place], [place] [address] SERVICES-[facility] * RHO (D) IMMUNE GLOBULIN (11/23/2018 8:10 AM CDT) Pathologist [facility] RHIG CANDIDATE? No- see comment LAB Comment: Patient is not a candidate for RhIg- Patient is Rh Positive. Performed at [facility] Laboratory Services - [facility] Blood [facility] [address] [place], [place] [address] Toll Free: [phone] CLIA No. [id number] Specimen Blood - VENOUS Performing Organization Address [facility]/Zipcode Ph one Number [facility] * Type and Screen - ONCE Routine (11/23/2018 8:10 AM CDT) ABO & RH O Positive LAB Comment: Performed at [facility] Laboratory Services - [facility] Blood [facility] [address] [place], [place] [address] Toll Free: [phone] CLIA No. [id number] IAT Negative LAB Comment: Performed at [facility] Laboratory Services - [facility] [address] [place], [place] [address] Toll Free: [phone] CLIA No. [id number] Specimen Blood - VENOUS Performing Organization Address City/[facility] Ph one Number [facility] documented in this encounter Visit Diagnoses Diagnosis Full-term premature rupture of membrane s, unspecified duration to onset of labor Gestational diabetes mellitus (GDM) aff ecting , antepartum Adjustment disorder with mixed anxiety and depressed mood History of vaginal delivery following p revious delivery Request for sterilization 37 weeks gestation of state, incidental Anemia complicating in third trimester Anemia, antepartum documented in this encounter Administered Medications Action Date Dose Rate Site Medication Order MAR Action bisacodyl (DULCOLAX) suppository 10 mg 10 mg, Rectal, QDAILYPRN, Starting Mon11/23/18 at 1114, Until Discontinued, Routine, Constipation diphenhydrAMINE (BENADRYL) tablet 25 mg 25 mg, Oral, Q6HPRN, Starting Mon 9 at 1114, Until Discontinued, Routine, Sleep, Itching 11/24/2018 7:18 PM CDT 240 mg docusate calcium (SURFAK) capsule 240 mg Given 240 mg, Oral, QDAILYPRN, Starting Mon11/23/18 at 1114, Until Discontinued, Routine, Constipation 240 mg Given 11/23/2018 11:41 PM CDT HYDROcodone-acetaminophen (NORCO 5) 5-325 mg tablet 1 tablet 1 tablet, Oral, Q6HPRN, Starting Mon11/23/18 at 1117, Until Discontinued, Routine, Pain (scale 4-6), If uncontrolled by Ibuprofen 11/25/2018 8:31 AM CDT 2 tablets HYDROcodone-acetaminophen (NORCO 5) Given 5-325 mg tablet 2 tablet 2 tablet, Oral, Q6HPRN, Starting Mon11/23/18 at 1117, Until Discontinued, Routine, Pain (scale 7-10), If uncontrolled by Ibuprofen 2 tablets Given 11/25/2018 12:56 AM CDT 2 tablets Given 11/24/2018 7:18 PM CDT 11/25/2018 10:24 AM CDT 600 mg ibuprofen (IBU) tablet 600 mg Given 600 mg, Oral, Q6HPRN, Starting Mon11/23/18 at 1117, Until Discontinued, Routine, Pain (scale 1-3) 600 mg Given 11/25/2018 12:56 AM CDT 600 mg Given 11/24/2018 6:13 PM CDT 11/24/2018 7:18 PM CDT 30 mL magnesium hydroxide (MILK OF MAGNESIA) Given 400 mg/5 mL suspension 30 mL 30 mL, Oral, QDAILYPRN, Starting Mon11/23/18 at 1114, Until Discontinued, Routine, Constipation 11/24/2018 7:18 PM CDT 160 mg simethicone (GAS RELIEF) chewable tablet Given 160 mg 160 mg, Oral, PC+HSPRN, Starting Mon11/23/18 at 1114, Until Discontinued, Routine, Gas 160 mg Given 11/23/2018 8:55 PM CDT Action Date Dose Rate Site Medication Order MAR Action 11/23/2018 9:47 AM CDT 2 g ceFAZolin in dextrose (iso-os) (ANCEF) 2 Given gram/100 mL Piggyback 2 g 2 g (2,000 mg), IV Piggyback, O.R. HOLDING ONCE, 1 dose, Starting Mon11/23/18 at 0745, Until Mon11/23/18 at 0947, 100 mL, Reason for Anti-Infective : Surgical Prophylaxis, Surgical Prophylaxis: QUEEN PRODUCER, Duration of therapy: within 24 hours of surgery 11/23/2018 12:24 PM CDT 1 tablet HYDROcodone-acetaminophen (NORCO 5) Given 5-325 mg tablet 1 tablet 1 tablet, Oral, ONCE, 1 dose, Mon 9 at 1215, Routine, PACU 11/23/2018 7:33 PM CDT 0.2 mg HYDROmorphone (DILAUDID) injection 0.2 Given mg 0.2 mg, Slow IV Push, Q5MIN PRN, 10 doses, Starting Mon11/23/18 at 1214, Until 11/25/18 at 0805, Routine, Pain (scale 7-10), Breakthrough Pain, PACU, Use approved by (Faculty): PACU USE -ANESTHESIA SERVICE-HYDROMORPHONE INJECTIONS 0.2 mg Given 11/23/2018 7:28 PM CDT 0.2 mg Given 11/23/2018 7:23 PM CDT 11/23/2018 8:55 PM CDT 30 mg ketorolac (TORADOL) injection 30 mg Given 30 mg, Slow IV Push, ONCE, 1 dose, Mon11/23/18 at 2100, Routine, honest john rocket crew member approving Restricted medication: MARIA ISABEL SILVERMAN 11/23/2018 8:16 AM CDT 1,000 mL 125 mL/hr lactated ringers IV infusion 1,000 mL New Bag at 125 mL/hr, 1,000 mL, IV Infusion, CONTINUOUS, Starting Mon11/23/18 at 0800 , Until Mon11/23/18 at 1118, Routine 11/23/2018 1:28 PM CDT 125 mL/hr LR 1000 mL + oxytocin 20 units IV Given Solution at 125 mL/hr, IV Infusion, ONCE, 1 dose , Mon11/23/18 at 1215, [place] 11/23/2018 9:47 AM CDT 30 mL sodium citrate-citric acid (BICITRA) Given 500-334 mg/5 mL solution 30 mL 30 mL, Oral, PRE-PROCEDURE ONCE, 1 dose , Starting Mon11/23/18 at 0745, Until Mon11/23/18 at 0947, Routine, Surgery/Procedure documented in this encounter Insurance Type Payer Benefit Subscriber ID Effective Phone Address Plan / Dates Group Medicaid COMMUNITY HEALTH CHOICE - COMMUNITY xxxxxxxxx 2018-P [address] MANAGED MEDICAID HEALTH resent [id number] [place], [place] [address] documented as of this encounter
--- OUTSIDE RECORDS SUMMARY | 2019-08-13 21:35 | XMS REPORT | Summary of Care ---
Author Author [facility] - Health Organization [facility] - Health Address Unknown Phone Unavailable Care Team Providers Care School Treasurer Name Role Phone Pcp, Patient Does Not Have A PCP [phone] Reason for Visit * Reason Comments Follow-up Encounter Details Care Team Description Date Type Department Angeli Hester MD [address] [place] [address] Follow-up 11/14/2018 Telephone [facility] [place] [address] [place] [address] Allergies Comments Active Allergy Reactions [...] mg Take 1 tablet 60 tablet 2 2 01 tabletIndications: Oral by mouth 2 [...] Dates Group Medicaid COMMUNITY HEALTH CHOICE - [facility]xx 2018-P [address] MANAGED MEDICAID HEALTH resent [id number] [place], [place] [address] [facility] [id number] 2018-P 500 - MANAGED MEDICAID BEHAVIORAL resent [address], [address] [place] [address] documented as of this encounter
--- OUTSIDE RECORDS SUMMARY | 2019-08-13 21:35 | XMS REPORT | Summary of Care ---
Author Author [facility] - Health Organization [facility] - Health Address Unknown Phone Unavailable Care Team Providers Care Director Of Agronomy Name Role Phone Pcp, Patient Does Not Have A PCP [phone] Reason for Visit * Reason Comments Refill Request Encounter Details Care Team Description Date Type Department Angeli Hester MD [address] [place] [address] Refill Request 11/26/2018 Telephone [facility] [address] [place] [address] Allergies Comments Active Allergy Reactions Severity Noted Date Azithromycin Swelling 09/05/2018 documented as of this encounter (statuses as of 11/26/2018) Medications End Date Status Medication Sig Dispensed [...] 9 use disorder every 24 (twenty-four) hours. documented as of this encounter (statuses as of 11/26/2018) Active Problems Problem Noted Date 37 weeks [...] as of this encounter (statuses as of 11/26/2018) Immunizations Name Administration Dates Next Due TDAP [...] Description Date Type Specialty Angeli Hester MD [address] [place] [address] [phone] 11/29/2018 Routine Obstetrics & Gyneco logy Visit Health [...] filedocumented in this encounter Visit Diagnoses Diagnosis Tobacco use disorder - Primary documented in this encounter Insurance Type Payer Benefit Subscriber ID Effective Phone Address Plan / Dates Group Medicaid COMMUNITY HEALTH CHOICE - COMMUNITY xxxxxxxxx 2018-P [address] MANAGED MEDICAID HEALTH resent [id number] [place], [place] [address] [facility] [id number] 2018-P 500 - MANAGED MEDICAID BEHAVIORAL resent [address] [place] [address] documented as of this encounter
--- OUTSIDE RECORDS SUMMARY | 2019-08-13 21:35 | XMS REPORT | Summary of Care ---
Author Author [facility] - Health Organization [facility] - Health Address Unknown Phone Unavailable Care Team Providers Care Waterproof Coating Machine Tender Name Role Phone Pcp, Patient Does Not Have A PCP [phone] Reason for Visit * Reason Comments Refill Request 90 day supply Encounter Details Care Team Description Date Type Department Angeli Hester MD [address] [place] [address] Refill Request (90 day supply) 12/03/2018 Telephone [facility] [address] [place] [address] Allergies Comments Active Allergy Reactions Severity Noted Date Azithromycin Swelling 09/05/2018 documented as of this encounter (statuses as of 12/03/2018) Medications End Date Status Medication Sig Dispensed [...] use disorder every 24 (twenty-four) hours. Active metoclopramide HCl 10 mg Take 1 tablet 30 tablet 0 tablet by mouth 9 every 8 (eight) hours. Active propranolol 80 mg tablet Take 1 tablet 60 tablet 0 by mouth 2 9 (two) times daily. documented as of this encounter (statuses as of 12/03/2018) Active Problems Problem Noted Date 37 weeks [...] as of this encounter (statuses as of 12/03/2018) Immunizations Name Administration Dates Next Due TDAP [...] 2018-P [address] MANAGED MEDICAID HEALTH resent [id number] [place], [place] [address] [facility] [id number] 2018-P 500 - MANAGED MEDICAID BEHAVIORAL resent [address] [place] [address] documented as of this encounter
--- OUTSIDE RECORDS SUMMARY | 2019-08-13 21:35 | XMS REPORT | Summary of Care ---
Author Author [facility] - Health Organization [facility] - Health Address Unknown Phone Unavailable Care Team Providers Care Casting Supervisor Name Role Phone Pcp, Patient Does Not Have A PCP [phone] Reason for Visit * Reason Comments Refill Request Encounter Details Care Team Description Date Type Department Angeli Hester MD Refill Request 04/15/2019 Telephone [facility] [place] [address] [place] [address] Allergies Comments Active Allergy Reactions Severity Noted Date Azithromycin Swelling 09/05/2018 documented as of this encounter (statuses as of 04/15/2019) Medications End Date Status Medication Sig Dispensed [...] mg Take 1 tablet 30 tablet 1 11/25/ 01 tabletIndications: by mouth 9 Full-term premature [...] hr Apply 1 Patch 30 Patch 0 0 patchIndications: Tobacco to area(s) 9 use [...] as of this encounter (statuses as of 04/15/2019) Active Problems Problem Noted Date 37 weeks [...] as of this encounter (statuses as of 04/15/2019) Immunizations Name Administration Dates Next Due TDAP [...] 2018-P [address] MANAGED MEDICAID HEALTH resent [id number] [place], [place] [address] [facility] [id number] 2018-P 500 - MANAGED MEDICAID BEHAVIORAL resent [address] [place] [address] documented as of this encounter
--- OUTSIDE RECORDS SUMMARY | 2019-08-13 21:35 | XMS REPORT | Summary of Care ---
Author Author [facility] - Health Organization [facility] - Health Address Unknown Phone Unavailable Care Team Providers Care Commodity Broker Name Role Phone Pcp, Patient Does Not Have A PCP [phone] Encounter Details Care Team Description Date [place] [address] [place] [address] 35 weeks gestation of 11/14/2018 Hospital [facility] Labor a nd Encounter Delivery Unit [address] [address] Allergies Comments Active Allergy Reactions Severity Noted Date Azithromycin Swelling 09/05/2018 documented as of this encounter (statuses as of 11/14/2018) Medications End Date Status Medication Sig Dispensed Refills Start Date 11/14/2018 Discontinued propranolol 80 mg Take 1 tablet 60 tablet 2 tabletIndications: Other by mouth 2 9 migraine without status (two) times migrainosus, not daily for 90 intractable days. 11/14/2018 Discontinued glyBURIDE 2.5 mg Take 1 tablet 60 tablet 2 01 tabletIndications: Oral by mouth 2 9 hypoglycemic controlled (two) times White classification A2 daily with gestational diabetes meals for 90 mellitus (GDM) days. 11/14/2018 Discontinued busPIRone 15 mg Take 1 tablet 90 tablet 2 11/07/19 1 tabletIndications: by mouth 3 9 Generalized anxiety (three) times disorder daily for 90 days. documented as of this encounter (statuses as of 11/14/2018) Active Problems Problem Noted Date 35 weeks gestation of 11/14/2018 Gestational diabetes mellitus (GDM) affecting pregnan cy, antepartum 11/14/2018 Adjustment disorder with mixed anxiety and depressed mood 11/14/2018 History of vaginal delivery following previous rani an delivery 11/14/2018 Previous section 11/14/2018 Tobacco use disorder 11/14/2018 Request for sterilization 11/14/2018 Estimated Date of Delivery Comments Yes 12/14/2018 Based on last menst rual period of 03/09/2018 (Exact Date) documented as of this encounter (statuses as [...] Signs Reading Time Taken Comments Vital Sign 108/57 11/14/2018 2:30 PM CDT Blood Pressure 76 11/14/2018 1:43 PM CDT Pulse 36.6 C (97.8 F) 11/14/2018 1:43 PM CDT Temperature 20 11/14/2018 1:43 PM CDT Respiratory Rate 100% 11/14/2018 1:43 PM CDT Oxygen Saturation - - Inhaled Oxygen Concentration 79.8 kg (176 lb) 11/14/2018 1:43 PM CDT Weight 175.3 cm (5' 9") 11/14/2018 1:43 PM CDT Height 25.99 11/14/2018 1:43 PM CDT Body Mass Index documented in this encounter Plan of Treatment [...] Associated Diag nosis POCT GLUCOSE (AUTOMATED) Routine 11/14/2018 2:39 PM CDT AUTHORIZATION TO RELEASE Routine 11/07/2018 PHI TO [facility] 12:01 AM CDT EXTERNAL PROVIDER RECORDS Routine 11/07/2018 12:01 AM CDT L&D VISIT (NON-DELIVERED) Routine 11/06/2018 12:01 AM CDT documented in this encounter Results * POCT GLUCOSE (AUTOMATED) (11/14/2018 2:39 PM CDT) POCT GLU 98 70 - 110 mg/dL [facility] Specimen Blood Performing Organization Address City/State/Zipcode Ph one Number [facility] CLIA: [id number], [address] [place] [address] St documented in this encounter Insurance Type Payer Benefit Subscriber ID Effective Phone Address Plan / Dates Group Medicaid [facility] xxxxxxxxx 2018-P [address] MANAGED MEDICAID HEALTH resent [id number] [place], [place] [address] documented as of this encounter
--- OUTSIDE RECORDS SUMMARY | 2019-08-13 21:35 | XMS REPORT | Summary of Care ---
Author Author [facility] - Health Organization [facility] - Health Address Unknown Phone Unavailable Care Team Providers Care Network Contract Manager Name Role Phone Pcp, Patient Does Not Have A PCP [phone] Encounter Details Care Team Description Date Type Department Mamadou Bello MD [address] [place] [address] [phone] 11/22/2018 Hospital [facility] Labor a nd Encounter Delivery Unit [facility] [address] [place] [address] Allergies Comments Active Allergy Reactions Severity Noted Date Azithromycin Swelling 09/05/2018 documented as of this encounter (statuses as of 11/22/2018) Medications End Date Status Medication Sig Dispensed Refills Start Date 11/22/2018 Discontinued PROAIR HFA 90 INL 2 PUFFS Q 1 mcg/actuation inhaler 6 H PRF WHZ 9 OR SOB 11/22/2018 Discontinued busPIRone 15 mg tablet TK 1 T PO TID 2 01 FOR 90 DAYS 9 11/22/2018 Discontinued cyclobenzaprine 10 mg TK 1 T PO HS 0 10/12/19 1 tablet PRN MSP 9 11/22/2018 Discontinued metoclopramide HCl 10 mg TK 1 T PO Q 1 10/30 tablet 8 H PRN NV 9 11/22/2018 Discontinued glyBURIDE 5 mg tablet 0 9 11/22/2018 Discontinued nicotine 7 mg/24 hr patch 1 9 11/22/2018 Discontinued pantoprazole 40 mg EC TK 1 T PO D 1 10/31/19 1 tablet 9 11/22/2018 Discontinued propranolol 80 mg tablet TK 1 T PO BID 2 11/06 9 11/22/2018 Discontinued SERTraline 50 mg tablet 1 9 11/22/2018 Discontinued CITRANATAL ASSURE 35 mg TK 1 UNIT PO 11 iron-1 mg -50 mg-300 mg D UTD 9 combo pack documented as of this encounter (statuses as of 11/22/2018) Active Problems Problem Noted Date 35 weeks [...] as of this encounter (statuses as of 11/22/2018) Immunizations Name Administration Dates Next Due TDAP [...] Signs Reading Time Taken Comments Vital Sign 128/75 11/22/2018 6:45 PM CDT Blood Pressure 73 11/22/2018 6:45 PM CDT Pulse 36.9 C (98.5 F) 11/22/2018 5:41 PM CDT Temperature 16 11/22/2018 5:41 PM CDT Respiratory Rate 100% 11/22/2018 6:45 PM CDT Oxygen Saturation - - Inhaled Oxygen Concentration - - Weight - - Height - - Body Mass Index documented in this encounter Discharge Instructions * Instructions* Edelmira Lóepz RN - 11/22/2018 Drink 8-10 glasses of water a day, keep all scheduled appointments, and take med ications as ordered. * Attachments The following attachments cannot be sent through Care Everywhere.* Labor and Childbirth: Active Labor (Fijian) * Kick Counts (Fijian) * Diabetes, Type 2, Understanding (Fijian) documented in this encounter Plan of Treatment Care Team Description Date Type Specialty Angeli Hester MD [address] [place], [place] [address] 11/29/2018 Routine Obstetrics & Gyneco logy Visit [...] xxxxxxxxx 2018-P P[address]O. BOX MANAGED MEDICAID HEALTH [email or web address]]ent [id number] [place], [place] [address] documented as of this encounter
--- OUTSIDE RECORDS SUMMARY | 2019-08-13 21:35 | XMS REPORT | Summary of Care ---
Author Author [facility] - Health Organization [facility] - Health Address Unknown Phone Unavailable Care Team Providers Care Enamel Machine Operator Name Role Phone Pcp, Patient Does Not Have A PCP [phone] Reason for Visit * Reason Comments Refill Request Encounter Details Care Team Description Date [place] [address] [address] [address] [place] [address] Refill Request 06/07/2019 Telephone [facility] [address] [place] [address] Allergies Comments Active Allergy Reactions Severity Noted Date Azithromycin Swelling 09/05/2018 documented as of this encounter (statuses as of 06/07/2019) Medications End Date Status Medication Sig Dispensed [...] as of this encounter (statuses as of 06/07/2019) Active Problems Problem Noted Date 37 weeks [...] as of this encounter (statuses as of 06/07/2019) Immunizations Name Administration Dates Next Due TDAP [...] 06/17/1989 FOOT EXAM 06/17/1997 PAP SMEAR 06/17/2000 CREATININE (SERUM) 10/31/2019 10/30/2018, 019 DTaP,Tdap,and Td Vaccines 09/21/2028 09/21/2018 (2 - Td) INFLUENZA VACCINE Completed 05/20/2019 documented as of this encounter Results Not on filedocumented in this encounter Insurance Type Payer Benefit Subscriber ID Effective Phone Address Plan / Dates Group Medicaid COMMUNITY HEALTH CHOICE - COMMUNITY xxxxxxxxx 2018-P [address] MANAGED MEDICAID HEALTH resent [id number] [place], [place] [address] [facility] [id number] 2018-P 500 - MANAGED MEDICAID BEHAVIORAL resent [address] [place] [address] documented as of this encounter
--- OUTSIDE RECORDS SUMMARY | 2019-08-13 21:35 | XMS REPORT | Summary of Care ---
Author Author [facility] - Health Organization [facility] - Health Address Unknown Phone Unavailable Care Team Providers Care Mattress Finisher Name Role Phone Pcp, Patient Does Not Have A PCP [phone] Reason for Visit * Reason Comments Refill Request Encounter Details Care Team Description Date Type Department Angeli Hester MD [address] [place] [address] Refill Request 11/26/2018 [facility]phone [facility] [address] [place] [address] Allergies Comments Active Allergy Reactions [...] Description Date Type Specialty Angeli Hester MD [address] [place] [address] [phone] 11/29/2018 Routine Obstetrics & Gyneco logy Visit [...] Plan / Dates Group Medicaid [facility] xxxxxxxxx 2018-P [address] MANAGED MEDICAID HEALTH resent [id number] [place] [address] [facility] [id number] 2018-P 500 - MANAGED MEDICAID BEHAVIORAL resent [address] [place] [address] documented as of this encounter
--- OUTSIDE RECORDS SUMMARY | 2019-08-13 21:35 | XMS REPORT | Summary of Care ---
Author Author [facility] - Health Organization [facility] - Health Address Unknown Phone Unavailable Care Team Providers Care Oil And Gas Field Technician Name Role Phone Pcp, Patient Does Not Have A PCP [phone] Reason for Visit * Reason Comments ROUTINE VISIT NON-STRESS TEST Encounter Details Care Team Description Date Type Department Angeli Hester MD [address] [place] [address] Supervision of high-risk of [place] multigravida (Primary Dx); Oral hypoglycemic controlled White classification A2 gestational diabetes mellitus (GDM); Asthma, unspecified asthma severity, unspecified whether complicated, unspecified whether persistent; Insufficient antepartum care; Previous delivery affecting , antepartum 11/14/2018 Routine [facility]- [place] [address] [place] [address] Allergies Comments Active Allergy Reactions [...] 35w5d presenting for care. [facility] for anxiety. She reports [...] file Gets together: Not on file Attends baptism service: Not on file Active member of [...] 2018-P P[address]O. BOX MANAGED MEDICAID HEALTH resent [id number] [place], [place] [address] documented as of this encounter
--- OUTSIDE RECORDS SUMMARY | 2019-08-13 21:35 | XMS REPORT | Summary of Care ---
Author Author [facility] - Health Organization [facility] - Health Address Unknown Phone Unavailable Care Team Providers Care Laboratory Apparatus Glass Blower Name Role Phone Pcp, Patient Does Not Have A PCP [phone] Encounter Details Care Team Description Date Type Department Doctor Unassigned, [place] [address] [place] [address] 11/14/2018 Orders Only [facility] [address] [place] [address] Allergies Comments Active Allergy Reactions Severity Noted Date Azithromycin Swelling 09/05/2018 documented as of this encounter (statuses as of 11/21/2018) Medications No known medicationsdocumented as of this encounter (statuses as of 11/21/2018) Active Problems Problem Noted Date 35 weeks [...] as of this encounter (statuses as of 11/21/2018) Immunizations Name Administration Dates Next Due TDAP [...] Date Type Specialty Angeli Hester MD [address] [place] [address] [phone] 11/22/2018 Routine Obstetrics & Gyneco logy Visit Health [...] Procedure Name Priority Date/Time Associated Diag nosis L&D VISIT (NON-DELIVERED) Routine 11/14/2018 12:01 AM CDT documented in this encounter Results Not on filedocumented in this encounter Insurance Type Payer Benefit Subscriber ID Effective Phone Address Plan / Dates Group Medicaid COMMUNITY HEALTH CHOICE - COMMUNITY xxxxxxxxx 2018-P P[address] B[address] MANAGED MEDICAID HEALTH resent [id number] [place], [place] [address] [facility] [id number] 2018-P 500 - MANAGED MEDICAID BEHAVIORAL resent [address] [place] [address] documented as of this encounter
--- OUTSIDE RECORDS SUMMARY | 2019-08-13 21:35 | XMS REPORT | Summary of Care ---
Author Author [facility] - Health Organization [facility] - Health Address Unknown Phone Unavailable Care Team Providers Care Business Proposal Rep Name Role Phone Pcp, Patient Does Not Have A PCP [phone] Encounter Details Care Team Description Date Type Department Doctor Unassigned, [facility] [address] [place] [address] 11/22/2018 Orders Only [facility] [address] [place] [address] Allergies Comments Active Allergy Reactions Severity Noted Date Azithromycin Swelling 09/05/2018 documented as of this encounter (statuses as of 11/22/2018) Medications End Date Status Medication Sig Dispensed Refills Start Date Active PROAIR HFA 90 INL 2 PUFFS Q 1 mcg/actuation inhaler 6 H PRF WHZ 9 OR SOB Active busPIRone 15 mg tablet TK 1 T PO TID 2 01 FOR 90 DAYS 9 Active cyclobenzaprine 10 mg TK 1 T PO HS 0 10/12/19 1 tablet PRN MSP 9 Active metoclopramide HCl 10 mg TK 1 T PO Q 1 10/30 tablet 8 H PRN NV 9 Active glyBURIDE 5 mg tablet 0 9 Active nicotine 7 mg/24 hr patch 1 9 Active pantoprazole 40 mg EC TK 1 T PO D 1 10/31/19 1 tablet 9 Active propranolol 80 mg tablet TK 1 T PO BID 2 11/06 9 Active SERTraline 50 mg tablet 1 9 Active CITRANATAL ASSURE 35 mg TK 1 UNIT [...] Description Date Type Specialty Angeli Hester MD [address] [place] [address] [phone] 11/29/2018 Routine Obstetrics & Gyneco logy Visit [...] Procedure Name Priority Date/Time Associated Diag nosis DISCLOSURE AND CONSENT Routine 11/22/2018 MEDICAL & SURGICAL 12:01 AM CDT PROCEDURES - FEMALM documented in this encounter Results Not on filedocumented in this encounter Insurance Type Payer Benefit Subscriber ID Effective Phone Address Plan / Dates Group Medicaid COMMUNITY HEALTH CHOICE - COMMUNITY xxxxxxxxx 2018-P [address] MANAGED MEDICAID HEALTH resent [id number] [place], [place] [address] [facility] [id number] 2018-P 500 - MANAGED MEDICAID BEHAVIORAL resent [address] [place] [address] documented as of this encounter
--- OUTSIDE RECORDS SUMMARY | 2019-08-13 21:35 | XMS REPORT | Summary of Care ---
Author Author [facility] - Health Organization [facility] - Health Address Unknown Phone Unavailable Care Team Providers Care Field Service Poultry Technician Name Role Phone Pcp, Patient Does Not Have A PCP [phone] Encounter Details Care Team Description Date Type Department Angeli Hester MD 03/08/2019 Patient Secure [facility] [place] [address] [place] [address] Allergies Comments Active Allergy Reactions Severity Noted Date Azithromycin Swelling 09/05/2018 documented as of this encounter (statuses as of 04/13/2019) Medications End Date Status Medication Sig Dispensed [...] hr Apply 1 Patch 30 Patch 0 / patchIndications: Tobacco to area(s) 9 use disorder [...] as of this encounter (statuses as of 04/13/2019) Active Problems Problem Noted Date 37 weeks [...] as of this encounter (statuses as of 04/13/2019) Immunizations Name Administration Dates Next Due TDAP [...] 2018-P [address] MANAGED MEDICAID HEALTH resent [id number] [address] [place], [place] [address] [facility] [id number] 2018-P [facility] - MANAGED MEDICAID BEHAVIORAL resent [address] [place] [address] documented as of this encounter
--- OUTSIDE RECORDS SUMMARY | 2019-08-13 21:35 | XMS REPORT | Summary of Care ---
Author Author [facility] - Health Organization [facility] - Health Address Unknown Phone Unavailable Care Team Providers Care Machine Filler Shredder Name Role Phone Pcp, Patient Does Not Have A PCP Encounter Details Care Team Description Date Type Department Doctor Unassigned, [address] [place] [address] 05/14/2019 Orders Only [facility] [address] [place] [address] Allergies Comments Active Allergy Reactions Severity Noted Date Azithromycin Swelling 09/05/2018 documented as of this encounter (statuses as of 06/25/2019) Medications End Date Status Medication Sig Dispensed [...] as of this encounter (statuses as of 06/25/2019) Active Problems Problem Noted Date 37 weeks [...] as of this encounter (statuses as of 06/25/2019) Immunizations Name Administration Dates Next Due TDAP [...] Completed 05/20/2019 documented as of this encounter Procedures Comments Procedure Name Priority Date/Time Associated Diag nosis AUTHORIZATION FOR RELEASE Routine 05/14/2019 OF PHI 12:01 AM GORE MAKER documented in this encounter Results Not on filedocumented in this encounter Insurance Type Payer Benefit Subscriber ID Effective Phone Address Plan / Dates Group Medicaid COMMUNITY HEALTH CHOICE - COMMUNITY xxxxxxxxx 2018-P [address]NAGED MEDICAID HEALTH resent [id number] [address] [place], [place] [address] [facility] [id number] 2018-P 500 - MANAGED MEDICAID BEHAVIORAL resent [address] [place] [address] documented as of this encounter
--- OUTSIDE RECORDS SUMMARY | 2019-08-13 21:35 | XMS REPORT | Summary of Care ---
Author Author [facility] - Health Organization [facility] - Health Address Unknown Phone Unavailable Care Team Providers Care Pumper Hand Name Role Phone Pcp, Patient Does Not Have A PCP [phone] Encounter Details Care Team Description Date Type Department Doctor Unassigned, [place] [address] [place] [address] 10/11/2018 Patient Secure [facility] Ayaan Llamas es Msg [address] [place] [address] Allergies Comments Active Allergy Reactions Severity Noted Date Azithromycin Swelling 09/05/2018 documented as of this encounter (statuses as of 11/17/2018) Medications End Date Status Medication Sig Dispensed Refills Start Date 10/12/2018 Discontinued propranolol (INDERAL XL) Take 1 30 capsule 1 0 80 mg 24 hr capsule capsule by 9 mouth daily. 11/06/2018 Discontinued cyclobenzaprine 10 mg Take 1 tablet 20 tablet 0 tabletIndications: Muscle by mouth at 9 spasm bedtime as needed for Muscle Spasms. documented as of this encounter (statuses as of 11/17/2018) Active Problems Problem Noted Date 35 weeks [...] as of this encounter (statuses as of 11/17/2018) Immunizations Name Administration Dates Next Due TDAP [...] 2018-P [address] MANAGED MEDICAID HEALTH resent [id number] [address], [place] [address] [facility] [id number] 2018-P [address] - MANAGED MEDICAID BEHAVIORAL resent [address] [place] [address] documented as of this encounter
--- OUTSIDE RECORDS SUMMARY | 2019-08-13 21:35 | XMS REPORT | Summary of Care ---
Author Author [facility] - Health Organization [facility] - Health Address Unknown Phone Unavailable Care Team Providers Care Batch Mixer Operator Name Role Phone Pcp, Patient Does Not Have A PCP [phone] Reason for Visit * Reason Comments Results Encounter Details Care Team Description Date Type Department Angeli Hester MD [address] [place] [address] Results 11/07/2018 Telephone [facility] [address] [place] [address] Allergies Comments Active Allergy Reactions Severity Noted Date Azithromycin Swelling 09/05/2018 documented as of this encounter (statuses as of 11/21/2018) Medications End Date Status Medication Sig Dispensed [...] (three) times disorder daily for 90 days. 11/14/2018 Discontinued fluconazole 150 mg Take 1 tablet 2 tablet 0 11/07 tabletIndications: by mouth 9 Vaginitis and every 72 vulvovaginitis (seventy-two) hours. 11/14/2018 Discontinued metroNIDAZOLE 500 mg Take 1 tablet 14 [...] Description Date Type Specialty Angeli Hester MD [address] [place], [place] [address] 11/22/2018 Routine Obstetrics & Gyneco logy Visit [...] Dates Group Medicaid COMMUNITY HEALTH CHOICE - [facility] xxxxxxxxx 2018-P [address] MANAGED MEDICAID HEALTH resent [id number] [address] [place] [address] [facility] [id number] 2018-P [address] - MANAGED MEDICAID BEHAVIORAL resent [address] [place] [address] documented as of this encounter
--- OUTSIDE RECORDS SUMMARY | 2019-08-13 21:35 | XMS REPORT | Summary of Care ---
Author Author [facility] - Health Organization [facility] - Health Address Unknown Phone Unavailable Care Team Providers Care Professional Poker Player Name Role Phone Pcp, Patient Does Not Have A PCP [phone] Reason for Visit * Reason Comments Follow-up Encounter Details Care Team Description Date Type Department Angeli Hester MD [address] [place] [address] Follow-up 11/14/2018 Telephone [facility] [place] [address] [place] [address] Allergies Comments Active Allergy Reactions [...] Dates Group Medicaid [facility]P [address] MANAGED MEDICAID HEALTH resent [id number] [address] [place], [place] [address] [facility] [id number] 2018-P [address] - MANAGED MEDICAID BEHAVIORAL resent [address] [place] [address] documented as of this encounter
--- OUTSIDE RECORDS SUMMARY | 2019-08-13 21:35 | XMS REPORT | Summary of Care ---
Author Author [facility] - Health Organization [facility] - Health Address Unknown Phone Unavailable Care Team Providers Care Job Coach/Job Developer Name Role Phone Pcp, Patient Does Not Have A PCP [phone] Encounter Details Care Team Description Date Type Department Doctor Unassigned, [place] [address] [place] [address] 10/18/2018 Patient Secure [facility] MyChart Muriel es Msg [address] [place] [address] Allergies Comments Active Allergy Reactions Severity Noted Date Azithromycin Swelling 09/05/2018 documented as of this encounter (statuses as of 11/24/2018) Medications End Date Status Medication Sig Dispensed Refills Start Date 11/06/2018 Discontinued cyclobenzaprine 10 mg Take 1 tablet 20 tablet 0 tabletIndications: Muscle by mouth at 9 spasm bedtime as needed for Muscle Spasms. 11/06/2018 Discontinued propranolol (INDERAL XL) Take 1 30 capsule 1 0 80 mg 24 hr capsule by 9 capsuleIndications: mouth daily. Migraine without aura and without status migrainosus, not intractable documented as of this encounter (statuses as of 11/24/2018) Active Problems Problem Noted Date Premature rupture of membranes 11/23/2018 35 weeks gestation of 11/14/2018 Gestational diabetes mellitus (GDM) affecting pregnan cy, antepartum 11/14/2018 Adjustment disorder with mixed anxiety and depressed mood 11/14/2018 History of vaginal delivery following previous rani an delivery 11/14/2018 Previous section 11/14/2018 Tobacco use disorder 11/14/2018 Request for sterilization 11/14/2018 Comments Yes documented as of this encounter (statuses as of 11/24/2018) Immunizations Name Administration Dates Next Due TDAP [...] more drinks on one Not asked occasion? Comments Yes Sex Assigned at Date Recorded Not on file Industry Job Start Date Occupation Not on file Not on file Not on file Travel End Travel History Travel Start No recent travel history available. documented as of this encounter Last Filed Vital Signs Not on filedocumented in this encounter Plan of Treatment Care Team Description Date Type Specialty Angeli Hester MD [address] [place] [address] [phone] 11/29/2018 Routine Obstetrics & Gyneco logy Visit [...] Plan / Dates Group Medicaid [facility] [place] xxxxxxxxx 2018-P [address]NAGED MEDICAID HEALTH resent [id number] [address] [place] [address] [facility] [id number] 2018-P [address] - MANAGED MEDICAID BEHAVIORAL resent [address] [place] [address] documented as of this encounter
--- OUTSIDE RECORDS SUMMARY | 2019-08-13 21:35 | XMS REPORT | Summary of Care ---
Author Author [facility] - Health Organization [facility] - Health Address Unknown Phone Unavailable Care Team Providers Care Produce Sorter Name Role Phone Pcp, Patient Does Not Have A PCP [phone] Reason for Visit * Reason Comments Refill Request 90 day supply Encounter Details Care Team Description Date Type Department Angeli Hester MD [address] [place] [address] Refill Request (90 day supply) 12/03/2018 [facility]phone [facility] [address] [place] [address] Allergies Comments Active Allergy Reactions [...] 2018-P [address] MANAGED MEDICAID HEALTH resent [id number] [place], [place] [address] [facility] [id number] 2018-P [address] - MANAGED MEDICAID BEHAVIORAL resent [address] [place] [address] documented as of this encounter
--- OUTSIDE RECORDS SUMMARY | 2019-08-13 21:35 | XMS REPORT | Summary of Care ---
Author Author [facility] - Health Organization [facility] - Health Address Unknown Phone Unavailable Care Team Providers Care Hvac R Instructor Name Role Phone Pcp, Patient Does Not Have A PCP Reason for Visit * Reason Comments ROUTINE VISIT Encounter Details Care Team Description Date Type Department Angeli Hester MD [address] [place] [address] Supervision of high-risk of maria isabel navas multigravida (Primary Dx); Oral hypoglycemic controlled White classification A2 gestational diabetes mellitus (GDM) 11/22/2018 Routine [facility] [place] [address] [place] [address] Allergies Comments Active Allergy Reactions [...] Day Smoker Cigarettes Smokeless Tobacco: Never Used Tobacco Cessation: Ready to Quit: No; Co unseling Given: No Comments: 2-3/day Drinks/Week oz/Week Comments Alcohol Use [...] Signs Reading Time Taken Comments Vital Sign 121/86 11/22/2018 3:01 PM CDT Blood Pressure 86 11/22/2018 3:01 PM CDT Pulse - - Temperature - - Respiratory Rate - - Oxygen Saturation - - Inhaled Oxygen Concentration 81 kg (178 lb 9.6 oz) 11/22/2018 3:01 PM CDT Weight 175.3 cm (5' 9") 11/22/2018 3:01 PM CDT Height 26.37 11/22/2018 3:01 PM CDT Body Mass Index documented in this encounter Progress Notes * Angeli Hester MD - 11/22/2018 2:30 PM CDT Chief complaint: care HPI Delma Hanley is a 38 year old female at 36w6d presenting for care. She feels well, occasional cramping. Denies [place]/dizziness/visual changes/so b/chest pain/nausea/vomiting/LOF/bleeding, reports active movement. Histories OB History Para Term [...] file Gets together: Not on file Attends episcopalian service: Not on file Active member of [...] which includes the following prescription(s ): buspirone, citranatal assure, cyclobenzaprine, glyburide, metoclopramide hcl, nicotine, pantoprazole, proair hfa, propranolol, and sertraline. Review of Systems Constitutional: Negative. Respiratory: Negative. Breasts: Negative. Cardiovascular: Negative. Gastrointestinal: Negative. Genitourinary: Negative. Musculoskeletal: Negative. Psychiatric/Behavioral: Negative. BP 121/78 | Pulse 86 | Ht 5' 9" (1.753 m) | Wt 178 lb 9.6 oz (81 kg) | LMP 1 05/10/2017 (Exact Date) | BMI 26.37 kg/m Pregravid BMI: Could not be calculated [...] elderly multigravida (primary encounter d iagnosis) Comment: BP 121/86, UA sent NST with erratic baseline, changed with long monitoring from 130s to 110s to 120 s, unable to determine baseline, will have patient monitor longer in L&D. Follow up next week if d/c'd from L&D, delivery consents signed today. Oral hypoglycemic controlled White classification A2 gestational diabetes mellit us (GDM) Comment: patient did not bring log, reports most values normal, stopped glyburid e because her sugars dropped too low on it Angeli Hester MD, 11/22/2018 documented in this encounter Plan of Treatment Care Team Description Date Type Specialty Angeli Hester MD [address] [place] [address] [phone] 11/29/2018 Routine Obstetrics & Gyneco logy Visit Date/Time Name Type Priority Associated Diag noses 11/22/2018 3:12 PM CDT URINALYSIS LAB Routine Supervision of high-risk of elderly multigravida Health Maintenance Due Date Last Done Comments [...] Date/Time Associated Diag nosis NON-STRESS TEST Routine 11/22/2018 Oral hyp oglycemic 3:29 PM CDT controlled White classification A2 gestational diabetes mellitus (GDM) documented in this encounter Results * NON-STRESS TEST (11/22/2018 3:29 PM CDT) Specimen Narrative Performed At [facility] Baseline very erratic, initially 130s, then 110s for about 6 minutes, then back to 120s, irregular contractions an d some irritability, to L&D for longer monitoring. Performing Organization Address City/State/Zipcode Ph one Number [...] xxxxxxxxx 2018-P [address] MANAGED MEDICAID HEALTH [facility] [id number] [address] [place], [place] [address] documented as of this encounter
--- OUTSIDE RECORDS SUMMARY | 2019-08-13 21:35 | XMS REPORT | Clinical Summary ---
Author Author [facility] - Health Organization [facility] - Health Address Unknown Phone Unavailable Care Team Providers Care Concrete Finishing Machine Operator Name Role Phone Pcp, Patient Does Not Have A PCP [phone] Allergies Comments Active Allergy Reactions Severity Noted [...] Encounter for ultrasound to check growth 11/12/2018 [facility]aternal Medi cine Visit Angeli Hester MD [...] Telephone Obstetrics & Gyneco logy Doctor Unassigned, [place] 10/17/2018 Orders Only Angeli Hester MD Refill [...] Previous delivery, antepartum condition or complication 10/09/2018 [facility] [facility] Maternal Medi cine Visit Angeli Hester MD [...] Obstetrics & Gyneco logy Visit Doctor Unassigned, [place] 09/05/2018 Orders Only from Last 3 Months [...] AUTHORIZATION TO RELEASE Routine 11/07/2018 PHI TO [facility] 12:01 AM CDT EXTERNAL PROVIDER RECORDS [...] 10/30/2018 6:14 PM CDT COMP. METABOLIC PANEL [facility] 10/30/2018 ([id number]) 6:14 PM CDT POCT GLUCOSE (AUTOMATED) Routine 10/30/2018 5:45 PM CDT L&D VISIT (NON-DELIVERED) Routine 10/30/2018 12:01 AM CDT MEDICATION CORRESPONDENCE Routine 10/22/2018 12:01 AM CDT EXTERNAL PROVIDER RECORDS Routine 10/17/2018 12:01 AM CDT AUTHORIZATION TO RELEASE Routine 10/11/2018 PHI TO [facility] 12:01 AM CDT SECOND AND THIRD Routine 10/09/2018 [facility] ULTRASOUND 3:24 PM CDT SECOND AND THIRD Routine 10/09/2018 TRIMESTER ULTRASOUND 3:19 PM CDT HELICOBACTER PYLORI AB, [facility] 10/06/2018 IGG 8:51 PM CDT LIPASE [place] 10/06/2018 8:51 PM CDT AMYLASE [place] 10/06/2018 8:51 PM CDT COMP. METABOLIC PANEL [facility] 10/06/2018 ([id number]) 8:51 PM CDT L&D VISIT (NON-DELIVERED) Routine [...] 09/05/2018 APPOINTMENT POLICY 2:29 PM CDT ACKNOWLEDGEMENT [facility] PATIENT FINANCIAL Routine 09/05/2018 POLICY 2:29 PM CDT NOTICE OF PRIVACY Routine 09/05/2018 PRACTICES 2:28 PM CDT CONSENT/REFUSAL FOR Routine 09/05/2018 DIAGNOSIS AND TREATMENT 2:28 PM CDT ASSIGNMENT OF BENEFITS Routine 09/05/2018 2:28 PM CDT AUTHORIZATION TO RELEASE Routine 09/05/2018 PHI TO [facility] 12:01 AM CDT AUTHORIZATION FOR RELEASE Routine 09/05/2018 OF PHI 12:01 AM CDT STERILIZATION CONSENT Routine 09/05/2018 FORM 12:01 AM CDT from Last 3 Months Results * SECOND AND THIRD TRIME[facility] ULTRASOUND (11/12/2018 9:47 AM CDT) Only the most recent of 3 results within the time period is included. Specimen * AUTHORIZATION TO RELEASE PHI TO [facility] (11/07/2018 12:01 AM CDT) Only the most recent of 3 results within the time period is included. Specimen Performing Organization Address [facility] one Number HIM * EXTERNAL PROVIDER RECORDS (11/07/2018 12:01 AM CDT) Only the most recent of 4 results within the time period is included. Specimen Performing Organization Address [facility] one Number HIM * POCT GLUCOSE (AUTOMATED) (11/06/2018 4:00 PM CDT) Only the most recent of 2 results within the time period is included. POCT GLU 118 (H) 70 - 110 mg/dL [facility] Specimen Blood Performing Organization Address [facility] one Number [facility] CLIA: [id number], [address] [place] [address] St * NON-STRESS TEST (11/06/2018 10:29 AM CDT) Specimen Narrative Performed At PACS Baseline varies from 120s to 130s, mod mauricio with good accels, frequent contractions q2-3 minutes on toco Performing Organization Address [facility] one Number PACS * GROUP B STREPTOCOCCUS BY PCR (11/06/2018 10:26 AM CDT) Group B Negative Negative [facility]ORATORY Streptococcus SERVICES by PCR Specimen Swab - VAGINA Performing Organization Address [employer] one Number [facility]ORATORY SERVICES CLIA: [id number], [address] [place] [address] [facility] * GALV ONLY - VAGINAL PATHOGENS BY DNA PROBE (11/06/2018 10:26 AM CDT) Trichomonas Negative Negative [facility]ORY vaginalis SERVICES Gardnerella Positive (A) Negative [facility] vaginalis SERVICES Dia species Positive (A) Negative [facility]ORATOR Y SERVICES Specimen Fluid - VAGINA Performing Organization Address [facility] one Number [facility] SERVICES CLIA: [id number], [address] [place] [address] [facility] * L&D VISIT (NON-DELIVERED) (11/06/2018 12:01 AM CDT) Only the most recent of 3 results within the time period is included. Specimen Performing Organization Address City/[facility] Ph one Number HIM * EXTRA TUBE LT. GREEN (10/30/2018 7:36 PM CDT) Specimen Blood Performing Organization Address [facility] Ph one Number [facility] CLIA: [id number], [address] [place], [place] [address] [facility] * EXTRA TUBE LAV (10/30/2018 7:35 PM CDT) Specimen Blood Performing Organization Address [facility] one Number [facility] CLIA: [id number], [address] [place], [place] [address] [facility] * CBC WITH DIFFERENTIAL (10/30/2018 6:14 PM CDT) Only the most recent of 2 results within the time period is included. WBC 12.84 (H) 4.30 - 11.10 [facility]ORY 10*3/L [facility] RBC 3.36 (L) 3.93 - 5.25 10*6/L [facility] HGB 9.9 (L) 11.6 - 15.0 g/dL [facility] HCT 31.1 (L) 35.7 - 45.2 % [facility]ORATORY [facility] MCV 92.6 80.6 - 95.5 fL [facility] MCH 29.5 25.9 - 32.8 pg [facility] MCHC 31.8 31.6 - 35.1 g/dL [facility] RDW-SD 49.2 39.0 - 49.9 fL [facility] RDW-CV 14.6 12.0 - 15.5 % [facility] PLT 300 166 - 358 10*3/L [facility] MPV 10.7 9.5 - 12.9 fL [facility] NRBC/100 WBC 0.0 0.0 - 10.0 /100 WBCs [facility] NRBC x10^3 <0.01 10*3/L [facility] GRAN MAT (NEUT) 78.3 % [facility] Y % [facility] IMM GRAN % 0.50 % [facility] LYMPH % 13.6 % [facility] MONO % 6.8 % [facility] EOS % 0.6 % [facility] BASO % 0.2 % [facility] GRAN MAT 10.05 (H) 1.88 - 7.09 10*3/uL [facility] AT[facility] x10^3(ANC) [facility] IMM GRAN x10^3 0.07 (H) 0.00 - 0.06 10*3/uL [facility] LYMPH x10^3 1.75 1.32 - 3.29 10*3/uL [facility] MONO x10^3 0.87 0.33 - 0.92 10*3/uL [facility] EOS x10^3 0.08 0.03 - 0.39 10*3/uL [facility] BASO x10^3 <0.03 0.01 - 0.07 10*3/uL [facility] Specimen Blood - VENOUS Performing Organization Address City/State/[facility] Ph one Number [facility] CLIA: [id number], [address] [place], [place] [address] [facility] * URINALYSIS (10/30/2018 6:14 PM CDT) APPEARANCE Clear Clear [facility] COLOR Yellow Yellow [facility] PH 6.0 4.8 - 8.0 [facility] SP GRAVITY 1.021 1.003 - 1.030 [facility] GLU U QUAL Normal Normal [facility] BLOOD Negative Negative [facility] KETONES Negative Negative [facility] PROTEIN Negative Negative [facility] UROBILIN Normal Normal [facility] BILIRUBIN Negative Negative [facility] NITRITE Negative Negative [facility] LEUK TRAV Negative Negative [facility] RBC/HPF 2 0 - 3 HPF [facility]ATORY [facility] WBC/HPF 2 0 - 5 HPF [facility]ATORY [facility] BACTERIA Negative Negative [facility] MUCOUS Slight (A) Negative LPF [facility]ORATORY [facility] SQ EPITH 5 (H) <=2 HPF [facility]ORY [facility] Specimen Urine - URINE, CLEAN CATCH Performing Organization Address City/State/Zipcode Ph one Number [facility]ORY CLIA: [id number], [address] [place], [place] [address] [facility] * COMP. METABOLIC PANEL ([id number]) (10/30/2018 6:14 PM CDT) Only the most recent of 2 results within the time period is included. NA 135 135 - 145 mmol/L [facility] K 4.2 3.5 - 5.0 mmol/L [facility] CL 106 98 - 108 mmol/L [facility] LABORATOR Y [facility] CO2 TOTAL 20 (L) 23 - 31 mmol/L [facility] LABORATORY [facility] AGAP 9 2 - 16 [facility] BUN 12 7 - 23 mg/dL [facility] GLUCOSE 87 70 - 110 mg/dL [facility]ORATORY [facility] CREATININE 0.46 (L) 0.50 - 1.04 mg/dL [facility] LABORAT ORY [facility] TOTAL BILI 0.2 0.1 - 1.1 mg/dL [facility] LABORATOR Y [facility] CALCIUM 9.0 8.6 - 10.6 mg/dL [facility] T PROTEIN 6.0 (L) 6.3 - 8.2 g/dL [facility]ORATORY [facility] ALBUMIN 2.9 (L) 3.5 - 5.0 g/dL [facility]ORATORY [facility] ALK PHOS 149 (H) 34 - 122 U/L [facility]ORY [facility] ALT(SGPT) 18 9 - 51 U/L [facility] AST(SGOT) 14 13 - 40 U/L [facility]OR[facility]ORY [facility] eGFR 151.2 mL/min/1.73m2 [facility] Calculation SERVICES-[place] (Non-[facility]) eGFR 183.3 mL/min/1.73m2 [facility] Calculation [facility]) Specimen Blood - VENOUS Narrative Performed At Association of Glomerular Filtration Rate (GFR) and S taging of Kidney Disease* [facility] + + +------ + [facility] | GFR (mL/min/1.73 m2)| With Kidney Damage| [...] abnormalities in imaging tests). Performing Organization Address [facility] one Number [facility] CLIA: [id number], [address] [place] [address] [facility] * THYROID STIMULATING HORMONE (10/30/2018 6:14 PM CDT) TSH 1.65Comment: Biotin has been 0.45 - 4.70 mIU/L [facility] reported to cause a negative [facility] bias, interpret results [facility] relative to patient's use of biotin. Specimen Blood - VENOUS Performing Organization Address [facility] one Number [facility] CLIA: [id number], [address] [place] [id number] [facility] * MAGNESIUM (10/30/2018 6:14 PM CDT) MAGNESIUM 1.8 1.7 - 2.4 mg/dL [facility] LABORATOR Y SERVICES-[facility] Specimen Blood - VENOUS Performing Organization Address [facility] one Number [facility] CLIA: [id number], [address] [place], [place] [address] [facility] * LIPASE (10/30/2018 6:14 PM CDT) Only the most recent of 2 results within the time period is included. LIPASE 66 0 - 220 U/L [facility] Specimen Blood - VENOUS Performing Organization Address [facility] one Number [facility] CLIA: [id number], [address] [place] [address] [facility] * MEDICATION CORRESPONDENCE (10/22/2018 12:01 AM CDT) Specimen Performing Organization Address [employer] one Number HIM * HELICOBACTER PYLORI AB, IGG (10/06/2018 8:51 PM CDT) [facility] Helicobacter Negative Negative [facility] pylori IgG SERVICES Antibody Specimen Blood - VENOUS Narrative Performed At Negative - No H. pylori IgG antibody detected. [facility] Positive - Indicates presence of [...] should be sen t. Performing Organization Address [facility] one Number [facility]ORATORY SERVICES CLIA: [id number], [address] [place] [address] [facility] * AMYLASE (10/06/2018 8:51 PM CDT) ANJU 34 (L) 35 - 110 U/L [facility] Specimen Blood - VENOUS Performing Organization Address [facility] one Number [facility] CLIA: [id number], [address] [place], [place] [address] SERVICES-[facility] * BI ULTRASOUND BREAST LIMITED RIGHT (09/24/2018 [...] of today's examrandolpho nAnnamarie Performing Organization Address City/[facility] Ph one Number [facility]ACS * >14 WEEKS US LIMITED (09/05/2018 4:33 PM CDT) Specimen Narrative Performed At [facility] Live IUP, size consistent with 27w3d, l arger than previous dating, growth/anatomy scan ordered with [facility] Performing Organization Address City/[facility] Ph one Number [facility] * GALV ONLY - SYPHILIS IGG/IGM (09/05/2018 4:11 PM CDT) Syphilis Non-reactive Non-reactive [facility] IgG/IgM SERVICES Specimen Blood - VENOUS Narrative Performed At Non-reactive - No serologic evidence of T. pallidum i nfection. Cannot exclude [facility] incubating or early syphilis. Submit a second specimen in 2-4 weeks if syphilis SERVICES is clinically suspected. Equivocal - Further testing to follow. Reactive - Further testing to follow. Performing Organization Address City/[facility] one Number [facility]AT[facility] SERVICES CLIA: [id number], [address] [place] [address] [facility] * HIV 1/2 AG-AB WITH REFLEX (09/05/2018 4:11 PM CDT) HIV 1/2 Ag-Ab Negative Negative [facility] with Reflex SERVICES HIV 0.07 [facility] Semi-quantitati SERVICES ve Specimen Blood Narrative Performed At Non-reactive for HIV-1 antigen and HIV-1/HIV-2 antibo dies.No laboratory [facility] evidence of HIV infection.Repeat in 2-4 weeks if acute HIV infection is SERVICES suspected. Performing Organization Address [facility] one Number [facility]ORATORY SERVICES CLIA: [id number], [address] [place] [address] [facility] * HCV ANTIBODY (09/05/2018 4:11 PM CDT) HCV Ab NEGATIVE [facility] SERVICES HCV 0.01 [facility] Semi-Quantitati SERVICES ve Specimen Blood Performing Organization Address [facility] one Number [facility]ATORY SERVICES CLIA: [id number], [address] [place] [address] [facility] * HEPATITIS B SURFACE ANTIGEN (09/05/2018 4:11 PM CDT) HBsAg HEPATITIS B SURFACE ANTIGEN Negative [facility] NEGATIVE SERVICES HBsAg 0.06 [facility] Semi-Quantitati SERVICES ve Specimen Blood Performing Organization Address [facility] one Number [facility]ORATORY SERVICES CLIA: [id number], [address] [place] [address] [facility] * GLUCOSE 1 HOUR POST PRANDIAL (09/05/2018 4:11 PM CDT) GLUC 1 HR 189 (H) 120 - 170 mg/dL [facility] LABORATOR Y SERVICES Specimen Blood Performing Organization Address [facility] one Number [facility]ORATORY SERVICES CLIA: [id number], [address] [place] [address] [facility] * Type and Screen - (09/05/2018 4:08 PM CDT) ABO & RH O POSITIVE LAB Comment: Performed at [facility] Laboratory Services - [facility] Blood [place] [address] Toll Free: [phone] CLIA No. [id number] IAT Negative LAB Comment: Performed at [facility] Laboratory Services - [facility] Blood [place] [address] Toll Free: [phone] CLIA No. [id number] Specimen Blood - VENOUS Performing Organization Address City/State/Zipcode Ph one Number D LAB * GC & CHLAMYDIA AMPLIFIED ASSAY (09/05/2018 3:22 PM CDT) C. trachomatis NEGATIVE Negative [facility]ORY Nucleic Acid SERVICES N. gonorrhoeae NEGATIVE Negative [facility] Nucleic Acid SERVICES Specimen Swab - CERVIX Performing Organization Address City/State/Zipcode Ph one Number [facility]ORATORY SERVICES CLIA: [id number], [address] [place] [address] [facility] * NO SHOW OR MISSED APPOINTMENT POLICY ACKNOWLEDGEMENT (09/05/2018 2:29 PM CDT) Specimen Performing Organization Address City/State/Zipcode Ph one Number HIM * [facility] PATIENT FINANCIAL POLICY (09/05/2018 2:29 PM [...] Dates Group Medicaid COMMUNITY HEALTH CHOICE - [facility] xxxxxxxxx 2018-P [address] MANAGED MEDICAID HEALTH resent [id number] [place]ICE [place], [place] [address] [facility] [id number] 2018-P 500 - MANAGED MEDICAID BEHAVIORAL resent [facility] [address], [address] [place] [address]
--- NOTE | 2019-08-13 21:58 | Emergency Department Note ---
History of Present Illnes History of Present Illness Chief Complaint: Skin Rash or Abscess History of Present Illness This is a 39 year old female c cc skin rash. Historian: Patient Onset (how long ago): week(s) (2) Location: face Quality: itching Radiation: non-radiation Severity: mild Onset quality: gradual Duration (how long): week(s) (2) Timing of current episode: constant Progression: unchanged Chronicity: new Context: recent illness, recent surgery, recent immobilization, recent travel, trauma/injury, new medications, hx of DVT/PE, non-compliance w/ medications, other Relieving factors: none Exacerbating factors: none Associated symptoms: denies other symptoms Treatments prior to arrival: none Past Medical/Family History Physician Review I have reviewed the patient's past medical and family history. Any updates have been documented here. Past Medical History Past Medical History: Hypertension Social History Smoking Cessation: Current every day smoker Counseling Performed: Yes Alcohol Use: Occasional Any Illegal Drug Use: No TB Exposure/Symptoms: No Physically hurt or threatened: No Other Any Pre-Existing Lines (PICC,: No Is patient up to date on immun: No Last Flu: NO Last Pneumovax: NO Review of Systems Review of Systems Constitutional: no symptoms EENTM: no symptoms Cardiovascular: no symptoms Respiratory: no symptoms Gastrointestinal: no symptoms Genitourinary: no symptoms Musculoskeletal: no symptoms Neurological: no symptoms Psychological: no symptoms Endocrine: no symptoms Hematological/Lymphatic: no symptoms Review of other systems All other systems reviewed and negative. Physical Exam Related Data Vital signs reviewed: Yes Physical Exam CONSTITUTIONAL Constitutional: well-developed, well-nourished HENT HENT: normocephalic, atraumatic, oropharynx clear/moist, nose normal HENT L/R: left ext ear normal, right ext ear normal EYES Eyes: PERRL, conjunctivae normal NECK Neck: ROM normal PULMONARY Pulmonary: effort normal, breath sounds normal CARDIOVASCULAR Cardiovascular: regular rhythm, heart sounds normal, capillary refill normal, normal rate GASTROINTESTINAL Abdominal: soft, nontender, bowel sounds normal GENITOURINARY Genitourinary: exam deferred SKIN Skin: warm, dry, rash (face) MUSCULOSKELETAL Musculoskeletal: ROM normal NEUROLOGICAL Neurological: alert, oriented x 3, no gross motor or sensory deficits PSYCHOLOGICAL Psychological: mood/affect normal, judgement normal Critical Care Time Subsequent provider I assumed direction of critical care for this patient from another provider of my specialty. Assessment & Plan Assessment & Plan Final Impression: (1) Cellulitis (2) Impetigo Assessment & Plan bsactrim augmentin Depart Disposition: HOME, SELF-CARE RAYA JOHNSON MD August 13, 2019 21:58
[2019-08-13] MEDS ORDERED: CEFTRIAXONE SOD 1 GM VIAL IM ONE (22:00)
[2019-08-13] MEDS ORDERED: CEFTRIAXONE SOD 1 GM VIAL ONE (22:02)
== END 2019-08-13 22:30 | disposition home or self-care (01) ==
LOC: FSED 21:30
DX: L03.211 Cellulitis of face (principal); L01.00 Impetigo, unspecified; I10 Essential (primary) hypertension; F17.210 Nicotine dependence, cigarettes, uncomplicated
CPT/HCPCS: 99282; J0696

== ENCOUNTER 2019-08-21 17:12 | Emergency (ER) | payer MEDICARE, OTHER ==
[~2019-08-21] VITALS: Ht 175.3 cm; Wt 67.1 kg
--- OUTSIDE RECORDS SUMMARY | 2019-08-21 17:15 | XMS REPORT | Continuity of Care Document ---
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, unspecified trimester, not applicable or unspecified 05/12/2018 05/14/2018 [facility] VOMITING / 9WK PREG Active 05/11/2018 [facility] HEADACHE Active 08/15/2012 [facility] Migraine (disorder) Resolved Problem 05/14/2018 [facility] Migraine Resolved Problem 11/17/2012 [facility] Medications Medication Details Route Status Patient Instructions Ordering Provider Order Date Source Acetaminophen 325 MG Oral Tablet [Tylenol] 325 mg = 1 tab, PO, Q4H, PRN Pain, X 10 day, # 12 tab, 0 Refill(s) Active 05/12/2018 [facility] Dextrose 5% with 0.9% NaCl IV 1,000 mL 1,000 mL, Rate: 150 ml/hr, Infuse over: 6.7 hr, Route: IV, Dosing Weight 65.909 kg, Total Volume: 1,000, Start date: 05/12/18 7:06:00 EXTERMINATOR HELPER, Duration: 30 day, Stop date: 06/11/18 7:05:00 CDT, 1.79, m2 Inactive 05/12/2018 [facility] Reglan 5 mg, Route: IVP, Drug form: INJ, ONCE, Dosing Weight 65.909, kg, Priority: STAT, Start date: 05/12/18 5:33:00 EXTERMINATOR HELPER, Stop date: 05/12/18 5:33:00 EXTERMINATOR HELPER Inactive 05/12/2018 [facility] NS (Bolus) IV 1,000 mL, 1,000 ml/hr, Infuse Over: 1 hr, Route: IV, ONCE, Priority: STAT, Dosing Weight 65.909 kg, Start date: 05/12/18 5:33:00 EXTERMINATOR HELPER, Stop date: 05/12/18 5:33:00 EXTERMINATOR HELPER Inactive 05/12/2018 [facility] NS (Bolus) IV 1,000 mL, 1,000 ml/hr, Infuse Over: 1 hr, Route: IV, ONCE, Priority: STAT, Dosing Weight 65.909 kg, Start date: 05/12/18 5:32:00 EXTERMINATOR HELPER, Stop date: 05/12/18 5:32:00 EXTERMINATOR HELPER Inactive 05/12/2018 [facility] Tylenol 1,000 mg, Route: PO, D rug form: TAB, ONCE, Dosing Weight 65.909, kg, Priority: STAT, Start date: 05/12/18 3:58:00 EXTERMINATOR HELPER, Stop date: 05/12/18 3:58:00 EXTERMINATOR HELPER Inactive 05/12/2018 [facility] Zofran 4 mg, Route: IVP, Drug form: INJ, ONCE, Dosing Weight 65.909, kg, Priority: STAT, Start date: 05/12/18 3:58:00 EXTERMINATOR HELPER, Stop date: 05/12/18 3:58:00 EXTERMINATOR HELPER Inactive 05/12/2018 [facility] naproxen 500 mg oral tablet 50 0 mg, 1 tab, PO, BID, PRN, 30 tab, Pain, Substitution Allowed PO Active [place] 11/15/2012 [facility] Riley 7.5/325 oral tablet 1-2 tab, PO, Q4-6H, PRN, 30 tab, Pain, Substitution Allowed, Maintenance PO Active [place] 11/15/2012 [facility] Ceftin 250 mg oral tablet 500 mg, 2 tab, PO, BID, 20 tab, Substitution Allowed PO Active [place] 11/15/2012 [facility] Bactrim DS oral tablet 1 tab, PO, BID, 28 tab, Substitution Allowed, Maintenance PO Active [place] 11/15/2012 [facility] Rocephin 1 gm, Route: IVPB, Dr ug form: PDR/INJ, ONCE, Dosing Weight 59.091, kg, Priority: STAT, Start date: 11/15/12 2:52:00, Stop date: 11/15/12 2:52:00 IVPB No Longer Active [place] 11/15/2012 [facility] ketorolac 30 mg, Route: IVP, D rug form: INJ, ONCE, Dosing Weight 59.091, kg, Priority: STAT, Start date: 11/15/12 2:52:00, Stop date: 11/15/12 2:52:00 IVP No Longer Active [place] 11/15/2012 [facility] Benadryl 12.5 mg, Route: IVP, ONCE, Dosing Weight 59.091, kg, Priority: STAT, Start date: 11/15/12 2:52:00, Stop date: 11/15/12 2:52:00 IVP No Longer Active [place] 11/15/2012 [facility] Reglan 10 mg, Route: IVP, Drug form: INJ, ONCE, Dosing Weight 59.091, kg, Priority: STAT, Start date: 11/15/12 2:52:00, Stop date: 11/15/12 2:52:00 IVP No Longer Active [place] 11/15/2012 [facility] potassium chloride 40 mEq, Rou te: PO, Drug form: ERTAB, ONCE, Dosing Weight 59.091, kg, Priority: STAT, Start date: 11/15/12 2:38:00, Stop date: 11/15/12 2:38:00 PO No Longer Active [place] 11/15/2012 [facility] ondansetron 4 mg, Route: IVP, Drug form: INJ, ONCE, Dosing Weight 59.091, kg, Priority: STAT, Start date: 11/15/12 1:31:00, Stop date: 11/15/12 1:31:00 IVP No Longer Active [place] 11/15/2012 [facility] Sodium Chloride 0.9% (Bolus) IV 1,000 mL 1,000 mL, Rate: 1,000 ml/hr, Infuse over: 1 hr, Route: IV, Dosing Weight 59.091 kg, Total Volume: 1,000, Priority: STAT, Start date: 11/15/12 1:31:00, Duration: 1 doses or times, Stop date: 11/15/12 2:30:00, Bolus DoseBolus Dose IV No Longer Active [place] 11/15/2012 [facility] morphine Sulfate 4 mg, Route: IVP, Drug form: INJ, ONCE, Dosing Weight 59.091, kg, Priority: STAT, Start date: 11/15/12 1:31:00, Stop date: 11/15/12 1:31:00 IVP No Longer Active [place] 11/15/2012 [facility] Tylenol 975 mg, Route: PO, ONC E, Dosing Weight 59.091, kg, Priority: STAT, Start date: 11/14/12 21:10:00, Stop date: 11/14/12 21:10:00 PO No Longer Active [place] 11/15 [facility] Allergies, Adverse Reactions, Alerts Substance Category Reaction Severity Reaction type Status Date Reported Comments Source erythromycin Assertion Drug allergy Active [facility] Immunizations No Data Provided for This Section Results Order Name Results Value Reference Range Date Interpretation Comments Source CHEM PANEL Lipase Lvl 72 73 - 393 05/12/2018 [facility] CHEM PANEL Globulin 3.7 2.7 - 4.2 05/12/2018 [facility] CHEM PANEL B/C Ratio 18 6 - 25 05/12/2018 [facility] CHEM PANEL A/G Ratio 0.9 0.7 - 1.6 05/12/2018 [facility] CHEM PANEL AGAP 10.6 10.0 - 20.0 05/12/2018 [facility] CHEM PANEL Alk Phos 56 39 - 136 05/12/2018 [facility] CHEM PANEL AST 12 0 - 37 05/12/2018 [facility] CHEM PANEL ALT 13 0 - 65 05/12/2018 [facility] CHEM PANEL Albumin Lvl 3.4 3.5 - 5.0 05/12/2018 [facility] CHEM PANEL Calcium Lvl 8.7 8.5 - 10.5 05/12/2018 [facility] CHEM PANEL Total Protein 7.1 6.4 - 8.4 05/12/2018 [facility] CHEM PANEL eGFR 128 05/12/2018 Result [...] should be multiplied by the estimated BMI. [facility] CHEM PANEL Glucose Lvl 81 70 - 99 05/12/2018 [facility] CHEM PANEL BUN 8 7 - 22 05/12/2018 [facility] CHEM PANEL Bili Total 0.4 0.2 - 1.3 05/12/2018 [facility] CHEM PANEL CO2 23 24 - 32 05/12/2018 [facility] CHEM PANEL Sodium Lvl 139 135 - 145 05/12/2018 [facility] CHEM PANEL Chloride Lvl 109 95 - 109 05/12/2018 [facility] CHEM PANEL Creatinine Lvl 0.44 0.50 - 1.40 05/12/2018 [facility] CHEM PANEL Potassium Lvl 3.6 3.5 - 5.1 05/12/2018 [facility] [place] [id number] 05/12/2018 [facility] HEMATOLOGY Eosinophils # 0.1 0.0 - 0.5 05/12/2018 [facility] HEMATOLOGY Eosinophils 0.9 0.0 - 4.0 05/12/2018 [facility] HEMATOLOGY Basophils 0.3 0.0 - 1.0 05/12/2018 [facility] HEMATOLOGY Neutrophils # 8.2 1.5 - 8.1 05/12/2018 [facility] HEMATOLOGY Lymphocytes # 2.2 1.0 - 5.5 05/12/2018 [facility] HEMATOLOGY Monocytes # 0.7 0.0 - 0.8 05/12/2018 [facility] HEMATOLOGY Segs 72.8 45.0 - 75.0 05/12/2018 [facility] HEMATOLOGY Lymphocytes 20.0 20.0 - 40.0 05/12/2018 [facility] HEMATOLOGY Monocytes 6.0 2.0 - 12.0 05/12/2018 [facility] HEMATOLOGY RBC 4.12 4.20 - 5.40 05/12/2018 [facility] HEMATOLOGY Hct 37.3 36.0 - 48.0 05/12/2018 [facility] HEMATOLOGY Hgb 12.6 12.0 - 16.0 05/12/2018 [facility] HEMATOLOGY MPV 8.4 7.4 - 10.4 05/12/2018 [facility] HEMATOLOGY Platelet 350 133 - 450 05/12/2018 [facility] HEMATOLOGY RDW 15.1 11.5 - 14.5 05/12/2018 [facility] HEMATOLOGY MCHC 33.9 32.0 - 36.0 05/12/2018 [facility] HEMATOLOGY WBC 11.2 3.7 - 10.4 05/12/2018 [facility] HEMATOLOGY MCH 30.6 27.0 - 31.0 05/12/2018 [facility] HEMATOLOGY MCV 90.4 80.0 - 98.0 05/12/2018 [facility] URINE AND STOOL UA Amorph Jacquelyn Occasional /HPF None Seen /HPF 05/12/[address] [facility] URINE AND STOOL UA RBC 1 0 - 2 05/12/2018 [facility] URINE AND STOOL UA WBC 4 0 - 5 05/12/2018 [facility] URINE AND STOOL UA Sq Epi Many /LPF Few /LPF 05/12/2018 [facility] URINE AND STOOL UA Leuk Est Trace *ABN* (05/12/18 5:03 AM) Negative 05/12/2018 [facility] URINE AND STOOL UA Blood Negative (05/12/18 5:03 AM) Negative 05/12/2018 [facility] URINE AND STOOL UA Nitrite Negative (05/12/18 5:03 AM) Negative 05/12/2018 [facility] URINE AND STOOL UA Urobilinogen <=1.0 mg/dL 0.1 - 1.0 05/12/2018 [facility] URINE AND STOOL UA Bili Negative *NA* (05/12/18 5:03 AM) Negative 05/12/2018 [facility] URINE AND STOOL UA Ketones 80 mg/dL Negative mg/dL 05/12/2018 [facility] URINE AND STOOL UA Mucus Few /LPF None Seen /LPF 05/12/2018 [facility] URINE AND STOOL UA Color Yellow *NA* (05/12/18 5:03 AM) Yellow 05/12/2018 [facility] URINE AND STOOL UA Spec Grav 1.018 <=1.030 05/12/2018 [facility] URINE AND STOOL UA Turbidity Slight *ABN* (05/12/18 5:03 AM) Clear 05/12/2018 [facility] URINE AND STOOL UA Protein Negative (05/12/18 5:03 AM) Negative 05/12/2018 [facility] URINE AND STOOL UA pH 6.0 5.0 - 8.0 05/12/2018 [facility] URINE AND STOOL UA Glucose Negative *NA* (05/12/18 5:03 AM) Negative 05/12/2018 [facility] CHEMISTRY Lipase Lvl 91 73 - 393 11/15/2012 Normal [facility] CHEMISTRY A/G Ratio 0.7 0.7 - 1.6 11/15/2012 Normal [facility] CHEMISTRY AGAP 14.0 10.0 - 20.0 11/15/2012 Normal [facility] CHEMISTRY B/C Ratio 12 6 - 25 11/15/2012 Normal [facility] CHEMISTRY Globulin 4.1 2.0 - 4.0 11/15/2012 HI [facility] CHEMISTRY Bili Total 0.3 0.2 - 1.3 11/15/2012 Normal [facility] CHEMISTRY AST 15 0 - 37 11/15/2012 Normal [facility] CHEMISTRY Albumin Lvl 2.7 3.5 - 5.0 11/15/2012 LOW [facility] CHEMISTRY ALT 18 0 - 65 11/15/2012 Normal [facility] CHEMISTRY Alk Phos 96 39 - 136 11/15/2012 Normal [facility] CHEMISTRY Total Protein 6.8 6.4 - 8.4 11/15/2012 Normal [facility] CHEMISTRY eGFR 97 11/15/2012 NA <sup>2</sup>Result [...] should be multiplied by the estimated BMI. [facility] CHEMISTRY CO2 26 24 - 32 11/15/2012 Normal [facility] CHEMISTRY Calcium Lvl 8.4 8.5 - 10.5 11/15/2012 LOW [facility] CHEMISTRY BUN 10 7 - 22 11/15/2012 Normal [facility] CHEMISTRY Creatinine Lvl 0.8 0.5 - 1.4 11/15/2012 Normal [facility] CHEMISTRY Glucose Lvl 100 70 - 99 11/15/2012 [facility] <sup>3</sup>Interpretive Data: Adult ref erence range values reflect the clinical guidelines
of the [place] [employer]. [facility] CHEMISTRY Chloride Lvl 102 95 - 109 11/15/2012 Normal [facility] CHEMISTRY Potassium Lvl 3.0 3.5 - 5.1 11/15/2012 [facility] <sup>1</sup>Result Comment: Critical Res ult(s) called to jorge talavera at 11/15/2012 02:23 by/cristal. Read back OK. [facility] CHEMISTRY Sodium Lvl 139 135 - 145 11/15/2012 Normal [facility] CHEMISTRY U Preg Negati ve (11/15/2012 01:50:00) Negati ve 11/15/2012 Normal [facility] HEMATOLOGY Hct 37.5 36.0 - 48.0 11/15/2012 Normal [facility] HEMATOLOGY Hgb 12.2 12.0 - 16.0 11/15/2012 Normal [facility] HEMATOLOGY WBC 9.4 3.7 - 10.4 11/15/2012 Normal [facility] HEMATOLOGY RBC 3.89 4.20 - 5.40 11/15/2012 LOW [facility] HEMATOLOGY MPV 8.8 7.4 - 10.4 11/15/2012 Normal [facility] HEMATOLOGY Platelet 291 133 - 450 11/15/2012 Normal [facility] HEMATOLOGY MCH 31.2 27.0 - 31.0 11/15/2012 HI [facility] HEMATOLOGY MCV 96.4 81.0 - 99.0 11/15/2012 Normal [facility] HEMATOLOGY RDW 13.1 11.5 - 14.5 11/15/2012 Normal [facility] HEMATOLOGY MCHC 32.4 32.0 - 36.0 11/15/2012 Normal [facility] HEMATOLOGY Segs-Bands # 6.5 1.5 - 8.1 11/15/2012 Normal [facility] HEMATOLOGY Lymphocytes # 1.7 1.0 - 5.5 11/15/2012 Normal [facility] HEMATOLOGY RBC Morph Ingrid l (11/15/2012 01:50:00) 11/15/2012 Normal [facility] HEMATOLOGY Plt Morph Clump ed (11/15/2012 01:50:00) 11/15/2012 Normal [facility] HEMATOLOGY Monocytes 11.0 2.0 - 12.0 11/15/2012 Normal [facility] HEMATOLOGY Eosinophils 1.2 0.0 - 4.0 11/15/2012 Normal [facility] HEMATOLOGY Segs 69.2 45.0 - 75.0 11/15/2012 Normal [facility] HEMATOLOGY Basophils 0.1 0.0 - 1.0 11/15/2012 Normal [facility] HEMATOLOGY Monocytes # 1.0 0.0 - 0.8 11/15/2012 HI [facility] HEMATOLOGY Eosinophils # 0.1 0.0 - 0.5 11/15/2012 Normal [facility] HEMATOLOGY Basophils # 0.0 0.0 - 0.2 11/15/2012 Normal [facility] HEMATOLOGY Lymphocytes 18.5 20.0 - 40.0 11/15/2012 LOW [facility] IMMUNOLOGY CDC-HIV 1/2 Ab Negat pedro pablo *NA* (11/15/2012 01:50:00) Negati ve 11/15/2012 [facility] URINALYSIS UA Ketones Negat pedro pablo mg/dL *NA* (11/15/2012 01:50:00) Negati ve 11/15/2012 [facility] URINALYSIS UA Glucose Negat pedro pablo mg/dL *NA* (11/15/2012 01:50:00) Negati ve 11/15/2012 [facility] URINALYSIS UA Spec Grav 1.009 <=1.030 11/15/2012 Normal [facility] URINALYSIS UA Protein Negat pedro pablo mg/dL (11/15/2012 01:50:00) Negati ve 11/15/2012 Normal [facility] URINALYSIS UA pH 6.0 5.0 - 8.0 11/15/2012 Normal [facility] URINALYSIS UA Color Yello w *NA* (11/15/2012 01:50:00) Yellow 11/15/2012 [facility] URINALYSIS UA Turbidity Marke d *ABN* (11/15/2012 01:50:00) Clear 11/15/2012 ABN [facility] URINALYSIS UA RBC 2 0 - 2 11/15/2012 Normal [facility] URINALYSIS UA Leuk Est Small *ABN* (11/15/2012 01:50:00) Negati ve 11/15/2012 ABN [facility] URINALYSIS UA WBC 8 0 - 5 11/15/2012 [facility] URINALYSIS UA Bacteria Many /HPF *ABN* (11/15/2012 01:50:00) None S een 11/15/2012 ABN [facility] URINALYSIS UA Sq Epi Occas ional /LPF *NA* (11/15/2012 01:50:00) Few 11/15/2012 [facility] URINALYSIS UA Blood Moder ate *ABN* (11/15/2012 01:50:00) Negati ve 11/15/2012 [facility] URINALYSIS UA Bili Negat ped[place] p[place] *NA* (11/15/2012 01:50:00) Negati ve 11/15/2012 [facility] URINALYSIS UA Nitrite Negat pedro pablo (11/15/2012 01:50:00) Negati ve 11/15/2012 Normal [facility] URINALYSIS UA Urobilinogen 0.1 - 1.0 11/15/2012 [facility] URINALYSIS UA Mucus Few / LPF *NA* (11/15/2012 01:50:00) None S een 11/15/2012 [facility] Pathology Reports No Data Provided for [...] of a corpus luteum type cyst. SL: [id number] 05/12/2018 [facility] Consultation Notes No Data Provided for This Section Discharge Summaries No Data Provided for This Section History and Physicals No Data Provided for This Section Vital Signs Vital Sign Value Date Comments Source Heart Rate 66 05/12/2018 [facility] Respitory Rate 16 05/12/2018 [facility] Systolic (mm Hg) 98 05/12/2018 [facility] Diastolic (mm Hg) 56 05/12/2018 [facility] Temperature Oral (F) 99.4 F 05/12/2018 [facility] Systolic (mm Hg) 108 05/12/2018 [facility] Diastolic (mm Hg) 62 05/12/2018 [facility] Heart Rate 68 05/12/2018 [facility] Respitory Rate 18 05/12/2018 [facility] Systolic (mm Hg) 114 05/12/2018 [facility] Diastolic (mm Hg) 70 05/12/2018 [facility] Heart Rate 70 05/12/2018 [facility] Respitory Rate 16 05/12/2018 [facility] Temperature Oral (F) 98.1 F 05/12/2018 [facility] Temperature Oral (F) 98.3 F 05/12/2018 [facility] Weight 65.909 05/12/2018 [facility] Height 172.72 cm 05/12/2018 [facility] BMI Calculated 22.09 05/12/2018 [facility] Respitory Rate 20 11/15/2012 [facility] Heart Rate 72 11/15/2012 [facility] Temperature Oral (F) 98.2 F 11/15/2012 [facility] Systolic (mm Hg) 99 11/15/2012 [facility] Diastolic (mm Hg) 77 11/15/2012 [facility] Systolic (mm Hg) 106 11/15/2012 [facility] Temperature Oral (F) 98.4 F 11/15/2012 [facility] Diastolic (mm Hg) 68 11/15/2012 [facility] Respitory Rate 18 11/15/2012 [facility] Heart Rate 66 11/15/2012 [facility] Respitory Rate 20 11/15/2012 [facility] Heart Rate 89 11/15/2012 [facility] Temperature Oral (F) 99.2 F 11/15/2012 [facility] Systolic (mm Hg) 100 11/15/2012 [facility] Diastolic (mm Hg) 61 11/15/2012 [facility] Weight 59.091 11/15/2012 [facility] Height 172.72 cm 11/15/2012 [facility] Encounters Location Location Details Encounter Type Encounter Number Reason For Visit Attending Provider ADM Date DC Date Status Source [facility] Emergency [id number] CHUCK POPAT 11/14/2012 11/15/2012 Discharged [facility] Emergency [id number] Lonnie Leonsoff 05/12/2018 05/12/2018 [facility] Procedures No Data Provided for This Section Assessment and Plan No Data Provided for This Section Plan of Care No Data Provided for This Section Social History Social History Date Source Social History TypeResponse Smoking Status Former smoker; Type: Cigarettes; Exposure to Tobacco Smoke None; Cigarette Smoking Last 365 Days No; Reg Smoking Cessation Counseling No entered on: 05/12/18 05/12/2018 [facility] Family History No Data Provided for This Section Advance Directives No Data Provided for This Section Functional Status No Data Provided for This Section
--- OUTSIDE RECORDS SUMMARY | 2019-08-21 17:16 | XMS REPORT | Continuity of Care Document ---
Author Author [facility] t Organization [facility] Address [address] [place] [address] Phone Unavailable Care Team Providers Care [facility] Name Role Phone MD GENARO SUBHADRA PCP Ivelisse NORIEGA, Emelina Attphys Doctor Unassigned, Name No Attphys Unavailable Mir NORIEGA, N Angeli Attphys Unavailable Sean Buckley Attphys Payers Payer Name Policy Type Policy Number Effective Date Expiration Date S ource Problems Condition Name Condition Details Condition Category Status Onset Date Resolution Date Last Treatment Date Treating Clinician Comments Source VOMITING / 9WK PREG VOMI TING / 9WK PREG Active 05/11/2018 [facility] Diagnosis Active 2018-05-11 00:00:00 2018-05-23 14:22:00 [facility] HEADACHE HEAD ACHE Active 08/15/2012 [facility] Diagnosis Active 2012-08-15 05:10:00 2012-11-15 04:44:00 [facility] Impetigo Problem Active [facility] Cellulitis Problem Active [facility] Migraine (disorder) Migr eulalia (disorder) Resolved Problem 05/14/2018 [facility] Problem Resolved 2018-05-14 23:50: 54 [facility] Migraine Migr eulalia Resolved Problem 11/17/2012 [facility] Problem Resolved 2012-11-17 21:46:55 [facility] Headache Head ache 05/12/2018 05/14/2018 [facility] Problem 2018-05-12 06:00:00 2018-05-14 23:50:54 2018-05-14 23:50:54 [facility] Other specified disorders of amniotic fl uid and membranes, unspecified trimester, not applicable or unspecified Other specified disorders of amniotic fluid and membranes, unspecified trimester, not applicable or unspecified 05/12/2018 05/14/2018 [facility] Problem 2018-05-12 06:00:00 2018-05-14 23:50:54 2018-05-14 23:50:54 [facility] Allergies, Adverse Reactions, Alerts Allergy Name Allergy Type Status Severity Reaction(s) Onset Date Inacti ve Date Treating Clinician Comments Source Lactose Allergy to substance Active Moderate LACTOSE INTOLER ANT 2019-08-13 00:00:00 [facility] Azithromycin Allergy to substance Active Moderate 2019-08-13 00:00 :00 [facility] erythromycin base DA Active [place] 2019-05-16 00:00:00 [facility] erythromycin base DA Active [place] 2013-12-17 00:00:00 [facility] erythromycin erythromycin Active [facility] Social History Social Habit Start Date Stop Date Quantity Comments Source Sex Assigned At 1980 00:00[birth year]00 1980 00:00:00 Female [facility] Smoking Status Start Date Stop Date Source Social History 2018-05-12 12:04:27 2018-05-12 12:04:27 [facility] Medications Ordered Medication Name Filled Medication Name Start Date Stop Da te Current Medication? Ordering Clinician Indication Dosage Frequency Signature (SIG) Comments Components Source Acetaminophen 325 MG Oral Tablet [Tylenol] 2018-05-12 15:48:00 Yes 325 mg = 1 tab, PO, Q4H, PRN Pain, X 10 day, # 12 tab, 0 Refill(s) [facility] Dextrose 5% with 0.9% NaCl IV 1,000 mL 2018-05-12 13:06:00 No 1,000 mL, Rate: 150 ml/hr, Infuse over: 6.7 hr, Route: IV, Dosing Weight 65.909 kg, Total Volume: 1,000, Start date: 05/12/18 7:06:00 SECURITIES CONSULTANT, Duration: 30 day, Stop date: 06/11/18 7:05:00 CDT, 1.79, m2 [facility] Reglan 2018-05-12 11:33:00 No 5 mg, Route: IVP, Drug form: INJ, ONCE, Dosing Weight 65.909, kg, Priority: STAT, Start date: 05/12/18 5:33:00 SECURITIES CONSULTANT, Stop date: 05/12/18 5:33:00 SECURITIES CONSULTANT [facility] NS (Bolus) IV 2018-05-12 11:33:00 No 1,000 mL, 1,000 ml/hr, Infuse Over: 1 hr, Route: IV, ONCE, Priority: STAT, Dosing Weight 65.909 kg, Start date: 05/12/18 5:33:00 SECURITIES CONSULTANT, Stop date: 05/12/18 5:33:00 SECURITIES CONSULTANT [facility] NS (Bolus) IV 2018-05-12 11:32:00 No 1,000 mL, 1,000 ml/hr, Infuse Over: 1 hr, Route: IV, ONCE, Priority: STAT, Dosing Weight 65.909 kg, Start date: 05/12/18 5:32:00 SECURITIES CONSULTANT, Stop date: 05/12/18 5:32:00 SECURITIES CONSULTANT [facility] Tylenol 2018-05-12 09:58:00 No 1,000 mg, Route: PO, Drug form: TAB, ONCE, Dosing Weight 65.909, kg, Priority: STAT, Start date: 05/12/18 3:58:00 SECURITIES CONSULTANT, Stop date: 05/12/18 3:58:00 SECURITIES CONSULTANT [facility] Zofran 2018-05-12 09:58:00 No 4 mg, Route: IVP, Drug form: INJ, ONCE, Dosing Weight 65.909, kg, Priority: STAT, Start date: 05/12/18 3:58:00 SECURITIES CONSULTANT, Stop date: 05/12/18 3:58:00 SECURITIES CONSULTANT [facility] naproxen 500 mg oral tablet 2012-11-15 08:06:43 Ye s Christion Anthony Rice 500 mg, 1 tab, PO, BID, PRN, 30 tab, Pain, Subs titution Allowed [facility] Roosevelt 7.5/325 oral tablet 2012-11-15 08:06:27 Yes Ch ristion Anthony Rice 1-2 tab, PO, Q4-6H, PRN, 30 tab, Pain, Substitution Al lowed, Maintenance [facility] Ceftin 250 mg oral tablet 2012-11-15 08:05:49 Yes Ch cate Mataory Rice 500 mg, 2 tab, PO, BID, 20 tab, Substitution Allowed [facility] Bactrim DS oral tablet 2012-11-15 08:05:27 Yes Carissa Mataory Rice 1 tab, PO, BID, 28 tab, Substitution Allowed, Maintenance [facility] Rocephin 2012-11-15 07:52:00 No Christion Anthony Rice 1 gm, Route: IVPB, Drug form: PDR/INJ, ONCE, Dosing Weight 59.091, kg, Priority: STAT, Start date: 11/15/12 2:52:00, Stop date: 11/15/12 2:52:00 [facility] ketorolac 2012-11-15 07:52:00 No Carissa Mataory Rice 30 mg, Route: IVP, Drug form: INJ, ONCE, Dosing Weight 59.091, kg, Priority: STAT, Start date: 11/15/12 2:52:00, Stop date: 11/15/12 2:52:00 [facility] Benadryl 2012-11-15 07:52:00 No Carissa Mataory Rice 12.5 mg, Route: IVP, ONCE, Dosing Weight 59.091, kg, Priority: STAT, Start date: 11/15/12 2:52:00, Stop date: 11/15/12 2:52:00 [facility] Reglan 2012-11-15 07:52:00 No Carissa Mataory Rice 10 mg, Route: IVP, Drug form: INJ, ONCE, Dosing Weight 59.091, kg, Priority: STAT, Start date: 11/15/12 2:52:00, Stop date: 11/15/12 2:52:00 [facility] potassium chloride 2012-11-15 07:38:00 No Carissa Armstrong aparnaeve Rice 40 mEq, Route: PO, Drug form: ERTAB, ONCE, Dosing Weight 59.091, kg, Priority: STAT, Start date: 11/15/12 2:38:00, Stop date: 11/15/12 2:38:00 [facility] ondansetron 2012-11-15 06:31:00 No Dhavalkindra Anthony Ri ce 4 mg, Route: IVP, Drug form: INJ, ONCE, Dosing Weight 59.091, kg, Priority: STAT, Start date: 11/15/12 1:31:00, Stop date: 11/15/12 1:31:00 [facility] Sodium Chloride 0.9% (Bolus) IV 1,000 mL 2012-11-15 06:31: 00 No Carissa Cruz Rice 1,000 mL, Rate: 1,000 ml/hr, Infuse over: 1 hr, Route: IV, Dosing Weight 59.091 kg, Total Volume: 1,000, Priority: STAT, Start date: 11/15/12 1:31:00, Duration: 1 doses or times, Stop date: 11/15/12 2:30:00, Bolus DoseBolus Dose [facility] morphine Sulfate 2012-11-15 06:31:00 No Carissa Shekhar canales Rice 4 mg, Route: IVP, Drug form: INJ, ONCE, Dosing Weight 59.091, kg, Priority: STAT, Start date: 11/15/12 1:31:00, Stop date: 11/15/12 1:31:00 [facility] Tylenol 2012-11-15 02:10:00 No Alex Brionese 975 mg, Route: PO, ONCE, Dosing Weight 59.091, kg, Priority: STAT, Start date: 11/14/12 21:10:00, Stop date: 11/14/12 21:10:00 [facility] Vital Signs Vital Name Observation Time Observation Value Comments Source Weight 2019-08-13 21:38:00 148 [lb_av] [facility] BMI (Body Mass Index) 2019-08-13 21:38:00 22.5 kg/m2 [facility] Heart Rate 2018-05-12 16:32:00 [facility] Respitory Rate 2018-05-12 16:32:00 [facility] Systolic (mm Hg) 2018-05-12 16:32:00 [facility] Diastolic (mm Hg) 2018-05-12 16:32:00 [facility] Temperature Oral (F) 2018-05-12 16:32:00 99.4 F [facility] Systolic (mm Hg) 2018-05-12 14:10:00 [facility] Diastolic (mm Hg) 2018-05-12 14:10:00 [facility] Heart Rate 2018-05-12 14:10:00 [facility] Respitory Rate 2018-05-12 14:10:00 [facility] Systolic (mm Hg) 2018-05-12 13:05:00 [facility] Diastolic (mm Hg) 2018-05-12 13:05:00 [facility] Heart Rate 2018-05-12 13:05:00 [facility] Respitory Rate 2018-05-12 13:05:00 [facility] Temperature Oral (F) 2018-05-12 13:05:00 98.1 F [facility] Temperature Oral (F) 2018-05-12 11:25:00 98.3 F [facility] Weight 2018-05-12 08:32:00 [facility] Height 2018-05-12 08:32:00 172.72 cm [facility] BMI Calculated 2018-05-12 08:32:00 [facility] Respitory Rate 2012-11-15 09:30:00 [facility] Heart Rate 2012-11-15 09:30:00 [facility] Temperature Oral (F) 2012-11-15 09:30:00 98.2 [facility] Systolic (mm Hg) 2012-11-15 09:30:00 [facility] Diastolic (mm Hg) 2012-11-15 09:30:00 [facility] Systolic (mm Hg) 2012-11-15 07:37:00 [facility] Temperature Oral (F) 2012-11-15 07:37:00 98.4 F [facility] Diastolic (mm Hg) 2012-11-15 07:37:00 [facility] Respitory Rate 2012-11-15 07:37:00 [facility] Heart Rate 2012-11-15 07:37:00 [facility] Respitory Rate 2012-11-15 03:49:00 [facility] Heart Rate 2012-11-15 03:49:00 [facility] Temperature Oral (F) 2012-11-15 03:49:00 99.2 F [facility] Systolic (mm Hg) 2012-11-15 03:49:00 [facility] Diastolic (mm Hg) 2012-11-15 03:49:00 [facility] Weight 2012-11-15 02:07:00 [facility] Height 2012-11-15 02:07:00 172.72 cm [facility] Procedures This patient has no known procedures. Plan of Care Planned Activity Planned Date Details Comments Source Instructions Rash - Nonspecific [facility] Encounters Start Date/Time End Date/Time Encounter Type Admission Type [facility] Care Department Encounter ID Source 2019-08-13 21:30:00 2019-08-13 22:30:00 Departed Emergency Room [facility] [id number] [facility] 2019-06-07 00:00:00 2019-06-07 00:00:00 Telephone Emelina Ramirez [facility] [place] [id number] 2019-05-14 00:00:00 2019-05-14 00:00:00 Orders Only D octor Unassigned, [place] [id number] 2019-05-02 00:00:00 2019-05-02 00:00:00 Orders Only D octor Unassigned, [place] [id number] 2019-04-15 00:00:00 2019-04-15 00:00:00 Telephone Angeli Hester [facility] [place] [id number] 2019-03-08 00:00:00 2019-03-08 00:00:00 Patient Secure Msg Angeli Hester [facility] [place] [id number] 2018-12-03 00:00:00 2018-12-03 00:00:00 Telephone Angeli Hester [facility] [place] [id number] 2018-05-12 08:20:00 2018-05-12 16:30:00 Emergency MHIEALT [facility] [id number] [facility] 2018-05-12 02:20:00 2018-05-12 10:30:00 Outpatient Lonnie Buckley [facility] [id number] 2012-11-14 20:56:00 2012-11-15 05:15:00 Emergency MHIEAL T [facility] [id number] [facility] Results Test Description Test Time Test Comments Results Result Comments Source - CT ABD PELVIS W/CONT 2019-05-16 04:07:00 Calvin e: KAVYA AKHTAR [facility] : 1980 Age/S: 38 / F [address] [place] [address] Unit #: [id number] Loc: [place] [address] Phys: Olive Browne NP Acct: [id number] Dis Date: Status: REG ER PHONE #: [phone] Exam Date: 05/16/2019 0307 FAX #: [phone] Reason: BL flank pain, R>L, dysuria, Sepsis EXAMS: CPT CODE: [id number] CT ABD PELVIS W/CONT 18061 EXAM: CT, CT ABDOMEN PELVIS W CONTRAST: [...] 1 Signed Report (CONTINUED) Name: KAVYA AKHTAR [facility] : 1980 Age/S: 38 / F [address] [place] [address] Unit #: [id number] Loc: [place] [address] Phys: Olive Browne NP Acct: [id number] Dis Date: Status: REG ER PHONE #: [phone] Exam Date: 05/16/2019306 FAX #: [phone] Reason: BL flank pain, R>L, dysuria, Sepsis EXAMS: CPT CODE: [id number] CT ABD PELVIS W/CONT 91629 <Continued> LYMPH NODES: Unremarkable. PELVIS: No pelvic [...] Taiwo Nazario M.D. CC: Olive Browne NP Technologist:RT Silvestre(R)(CT) CTDI: DLP: Trnscb Date/Time: 05/16/2019 (0407) [email or web address] Orig Print D/T: S: 05/16/2019 (6980) PAGE 2 Signed Report PROCALCITONIN (PCT) 2019-05-16 [...] any concentrations <2 ng/mL are obtained. LACTIC [id number] 02:51:00* Test Item Value Reference Range Interpretation Comments LACTIC ACID (test code = LACT) 0.8 mmol/L 0.4-1.9 N BASIC METABOLIC [id number] 02:46:00* Test Item Value Reference Range Interpretation [...] CA) 8.8 mg/dL 8.0-10.5 N HEPATIC FUNCTION [id number] 02:46:00* Test Item Value Reference Range Interpretation [...] ALKP) 82 IUnit/L 20-125 N BASIC METABOLIC [id number] 02:42:00* Test Item Value Reference Range Interpretation [...] CA) 8.8 mg/dL 8.0-10.5 N HEPATIC FUNCTION [id number] 02:42:00* Test Item Value Reference Range Interpretation [...] code = ALKP) IUnit/L 20-125 HCG SERUM [id number] 02:40:00* Test Item Value Reference Range Interpretation Comments HCG SERUM QUAL (test code = HCGQL) SERUM NEGATIVE NEGATIVE UA RFLX MICR CULT IF [id number] 02:36:00* Test Item Value Reference Range Interpretation [...] Description: CLEAN CATCHUA RFLX MICR CULT IF [id number] 02:33:00* Test Item Value Reference Range Interpretation [...] F Flank PainSpecimen Description: CLEAN CATCHCBC W/AUTO [id number] 02:32:00* Test Item Value Reference Range Interpretation [...] REQUIRED (test code = MDIFF) NO TROPONIN-I [id number] 01:57:00* Test Item Value Reference Range Interpretation Comments TROPONIN-I RAPID (test code = TROPIRAP) 0.01 ng/mL 0.00-0.08 N Performed by certified cooling machine operator at [facility] Negative: <= 0.08 Positive: >= 0.09An elevated troponin value alone is not sufficient todiagnose a myocardial infarction. Rather, the patient sclinical presentation (history, physical exam) and ECGshould be used in conjunction with troponin in thediagnostic evaluation of suspected myocardial infarction. Aserial sampling protocol is recommended to facilitate the identification of temporal changes in troponin levels characteristic of CT. - XR CHEST 2 [id number] 01:21:00 FAX: Olive Browne NP [phone] Procious: Affectiva St: PRE Name: KAVYA ALICIA [facility] [place] : [birth year] Age/S: 38/F [address] [place] [address] Unit #: [id number] Loc: [place] [address] Phys: Olive Browne NP Acct: [id number] Dis Date: Status: PRE ER PHONE #: [phone] Exam Date: 05/16/2019 010 FAX #: [phone] Reason: Fever EXAMS: CPT CODE: [id number] XR CHEST 2 V 59618 EXAM: CR, XR chest 2 views: 2019, 0052 hours HISTORY: Fever TECHNIQUE: Frontal a nd lateral chest radiographs are obtained. COMPARISON: 02/23/2006. FINDINGS: Trachea is in midline. Heart is normal in size. Pulmonary vascularity is not congested. No airspace consolidation, pneum othorax or pleural effusion is seen. Osseous structures are stable. IMPRESSION: No acute cardiopulmonary disease seen. SL:[JSYED-H] Electronically Signed by Aleena Nazario on 05/16 at 0121 Reported and signed by: Taiwo Nazario M.D. CC: Olive Browne NP Technologist: RT Diana(Jerry) Trnscrd Butch te/Time/By: 05/16/2019 (0121) : By: [email or web address] Orig Print D/T: S: 05/16 (0125) PAGE 1 Signed Report CHEM [id number] 11:03:0072 mobliCHEM [id number] 11:03:003.7 mobliCHEM [id number] 11:03:00* Test Item Value Reference Range Interpretation Comments B/C Ratio (test code = B/C Ratio) 18 1 6-25 [facility] [id number] 11:03:00* Test Item Value Reference Range Interpretation Comments A/G Ratio (test code = A/G Ratio) 0.9 1 0.7-1.6 [facility] [id number] 11:03:0010.6MH [facility] [id number] 11:03:0056 [facility] [id number] 11:03:0012 [facility] PANEL 2018-05-12 11:03:0013 [facility] CWZOJ1244-10-80 11:03:003.4 [facility] CHEM WXIWX2284-26-78 11:03:008.7 [facility] [id number] 11:03:007.1MH [facility] RYWLT5784-21-16 11:03:95338AK [facility] EPDAP0213-92-23 11:03:0081 [facility] CPOXV4048-59-54 11:03:008 [facility] PANEL 2018-05-12 11:03:000.4 [facility] XDBWJ6851-51-90 11:03:0023 [facility] CHEM [id number] 11:03:23383XL [facility] RJWLG2395-06-51 11:03:18177NT [facility] VZNHW8824-61-33 11:03:000.44 [facility] DVHST3726-09-62 11:03:003.6M TvljmsyecKYDZQEHBAUICV2776-98-47 11:03:8218924BH [facility] KZCQWXLMXD0415-95-88 11:03:000.1MH MysjtfmtfVOZJWFRKAX2271-89-68 11:03:000.9 TacsbtztuMMVEXKZLWE1273-02-07 11:03:000.3MH EutvcfcrtNVQPLFHAXI0686-14-79 11:03:008.2M VwmnhayxeELGTGNTYKX7031-22-83 11:03:002.2M [facility] 2018-05-12 11:03:000.7 JpmgkmoamFGQADCIUIO7744-95-39 11:03:0072.8 [facility] VUGTFYQCAE0225-56-08 11:03:0020.0 DtflobyppUNDBYIXKXM8022-76-65 11:03:006.0 HttjbvtteCHOTBILTDP6047-48-10 11:03:004.12 KrliyfchhSERYIPQYLH0553-67-37 11:03:0037.3M LionjjthiGEXCFHASND0867-92-19 11:03:0012.6M [facility] 2018-05-12 11:03:008.4 BtupsbbjcZEEQSONHNN7465-41-20 11:03:[facility]DL[facility] WDDXWIAQAQ9918-13-77 11:03:0015.1[facility] EnglandAaamstasiRKFKRYUPAT9299-36-94 11:03:0033.9[facility] HospitalJuuweywzfPUJDHTWLOY6908-17-26 11:03:0011.2M[facility] New EnglandDmwaunnywHVQDQOZWRY3134-56-26 11:03:00* Test Item Value Reference Range Interpretation Comments MCH (test code = MCH) 30.6 pg 27.0-31.0 BbxvdhsweCSVYDPROII0923-43-57 11:03:0090.4 [facility]OOL 2018-05-12 11:03:001 [facility] ERXFB7682-10-12 11:03:004 [facility] URINE AND [id number] 11:03:00Trace *ABN*(05/12/18 5:03 AM) [facility] [id number] 11:03:00Negative (05/12/18 5:03 AM) [facility] LJTGH9163-92-85 11:03:00Negative (05/12/18 5:03 AM) [facility] STOOL 2018-05-12 11:03:00Negative *NA*(05/12/18 5:03 AM) [facility] STOOL 2018-05-12 11:03:00Yellow *NA*(05/12/18 5:03 AM) [facility] STOOL 2018-05-12 11:03:00* Test Item Value Reference Range Interpretation Comments UA Spec Grav (test code = UA Spec Grav) 1.018 1 [facility] [id number] 11:03:00Slight *ABN*(05/12/18 5:03 AM) [facility] [id number] 11:03:00Negative (05/12/18 5:03 AM) [facility] ZGEEI9527-15-04 11:03:00* Test Item Value Reference Range Interpretation Comments UA pH (test code = UA pH) 6.0 1 5.0-8.0 [facility] [id number] 11:03:00Negative *NA*(05/12/18 5:03 AM) KfpukubzpIAYSKUPKT2858-91-73 06:50:0091MH IitihwbazPMVKOANAX3796-38-01 06:50:00 0.7MH BnpgtcivsZAXKAELFR6086-32-14 06:50:0014.0 AwolywnczFNXIFXQKN1371-37-61 06:50:0012MH WcrwbhklrREJLMHEYV0175-65-56 06:50:004.1MH [facility]CHEMISTRY 2012-11-15 06:50:000.3MH ZulzfpbzeDRIXJTKAY1082-55-69 06:50:0015MH [facility] RLNVTCBCH1359-88-12 06:50:002.7 NqgdfrokgYSEUWPWSW2425-43-43 06:50:0018 TtztubliwDHBBDXFNR4344-79-35 06:50:0096 NnvlejphiNCVWSVYZP1092-65-50 06:50:00 6.8 VlsrteswhDDOWDXWTR0298-23-74 06:50:0097 HkdhjilfdYKSFDZQBP2580-19-83 06:50:0026 UdxojkoxuUFEXSDZZS8295-06-14 06:50:008.4 [facility]MISTRY 2012-11-15 06:50:0010 PfcakauxkRVSQCZWSJ3645-31-41 06:50:000.8 [facility] GTCPHOCQM8867-77-07 06:50:48865CT DjgmhwhdcHANDMOHXN8307-99-72 06:50:56237CZ RnglwkyqxTMMKDALYO0605-89-40 06:50:003.0 VbifgyxjnABRLATCAP9992-87-32 06:50:00 139 JpbratbzmKQKTQGUUQ9250-73-16 06:50:00Negative (11/15/2012 01:50:00) IsdaenvfkNUVNTRXDDQ2552-70-63 06:50:0037.5 OqpqqutjtFBFPDPAAVY3038-35-56 06:50:0012.2M QyhhcbdzoSRNHSYWSFN5606-98-64 06:50:009.4 [facility] 2012-11-15 06:50:003.89 AaezxtzvxADZYHTTAKC9044-58-81 06:50:008.8 [facility] ZIJZPZDCBW0004-16-26 06:50:98437TA KfhcfmgruKWYYMROOUH9799-72-31 06:50:00* Test Item Value Reference Range Interpretation Comments MCH (test code = MCH) 31.2 pg 27.0-31.0 H SikjtbutsWVNCYUTMMW8541-98-86 06:50:0096.4MH WbftdqjldNDQNTFQPLU7422-61-23 06:50:0013.1MEn[facility] New EnglandZnqbitjjcXRCNUACQVD8023-22-06 06:50:0032.4[facility] 2012-11-15 06:50:006.5[facility] HospitalOxlzdnborVBWWZDHQDW1751-01-75 06:50:001.7[facility] CCAKBAKCCS4228-52-53 06:50:00Normal (11/15/2012 01:50:00) [facility] TFRVDZFWEN8993-23-35 06:50:00Clumped (11/15/2012 01:50:00) [facility] HXAIVQZFWU1632-54-47 06:50:0011.0[facility] HospitalBnvohzbsbFUPILTKUWN4688-80-13 06:50:001.2MEn[facility] New EnglandMqhjzrvkfGGTNPGKYJW4123-04-15 06:50:0069.2MEn[facility] Of New EnglandExfkjcpcpUSUZBTHADB6381-46-56 06:50:000.1MEn[facility] Of New EnglandXqhshkjbbXVERFJJQIC3031-07-18 06:50:001.0[facility] 2012-11-15 06:50:000.1MEn[facility] Of New EnglandTutzzqvhnXNRPELXPOM1909-72-79 06:50:000.0[facility] DPKGKBYINR3447-88-69 06:50:0018.5[facility] HospitalFxfvrdegzZZCSWUTIZN9361-24-41 06:50:00 Negative *NA*(11/15/2012 01:50:00) [facility] HospitalDxfxvqdsjYZFOZVHVVG1019-56-68 06:50:00 Negative mg/dL *NA*(11/15/2012 01:50:00) [facility] HospitalOkegptfgmNBCXSHKMMJ2725-57-61 06:50:00Negative mg/dL *NA*(11/15/2012 01:50:00) [facility] 2012-11-15 06:50:001.009[facility] HospitalNqmuuzbonJPXWIXTEVF9338-09-39 06:50:00Negative mg/dL (11/15/2012 01:50:00) [facility] HospitalVteozfjnwABWUGLUQTL1945-74-04 06:50:006.0[facility] PJYATCUXMW9911-69-53 06:50:00Yellow *NA*(11/15/2012 01:50:00) [facility] UNOSMEANZK9038-20-51 06:50:00Marked *ABN*(11/15/2012 01:50:00) [facility] ZYXUPFMAII1765-94-97 06:50:002[facility] HospitalXkandxppzWIMLWVNIYX6155-15-79 06:50:00Small *ABN*(11/15/2012 01:50:00) [facility]ale[facility]wuOSZSYVLYLC9413-52-81 06:50:008[facility] CenterTkmdfrnayLHYNGBZUGX4153-95-79 06:50:00Many /HPF *ABN*(11/15/2012 01:50:00) [facility] HospitalUbsjkhrmfKEGMDEALCX8746-14-53 06:50:00Occasional /LPF *NA*(11/15/2012 01:50:00) [facility] HospitalIaqdcqdfyDJZYRFVXRA9118-61-48 06:50:00Moderate *ABN*(11/15/2012 01:50:00) [facility] HospitalCczyxlypcTZFIQTTVGT7098-90-09 06:50:00Negative *NA*(11/15/2012 01:50:00) [facility]WflioyjnqBZQRZGOBDO8724-26-20 06:50:00Negative (11/15/2012 01:50:00) [facility] InstituteVsrljalcdESDGDFCARO4617-91-46 06:50:00Few /LPF *NA*(11/15/2012 01:50:00) [facility]
--- NOTE | 2019-08-21 17:59 | Emergency Department Note ---
History of Present Illnes History of Present Illness Chief Complaint: rash History of Present Illness This is a 39 year old female with history of HTN, migraine and asthma, who was seen here on 08/13/19 with a rash on her face, treated with 7 days of Bactrim, Augmentin and intranasal Mupirocin. Pt has completed the antibiotics, but states that she continues to have "pus drain from the tip of her nose," with a sore on the left nare. She denies any sinus pressure or purulent material when blowing nose. Denies f/c/n/v or headache. No epistaxis. She denies drug use. 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 Onset (how long ago): day(s) (10) Location: see HPI Quality: see HPI Radiation: non-radiation Severity: moderate Onset quality: gradual Duration (how long): day(s) (10) Timing of current episode: constant Progression: partially resolved (with some persistent drainage) Chronicity: new Relieving factors: none Exacerbating factors: none Associated symptoms: denies other symptoms Treatments prior to arrival: other (completed course og Bactrim and Augmentin 3 days ago) Previous service: medications given Past Medical/Family History Physician Review I have reviewed the patient's past medical and family history. Any updates have been documented here. Past Medical History Recent Fever: No Clinical Suspicion of Infectio: Yes New/Unexplained Change in Ment: No Past Medical History: Hypertension Past Surgical History: Appendectomy, Social History Smoking Cessation: Current some day smoker Counseling Performed: Yes Alcohol Use: Occasional Any Illegal Drug Use: No TB Exposure/Symptoms: No Physically hurt or threatened: No Family History Family history of heart diseas: No Other Last Tetanus: UTD Any Pre-Existing Lines (PICC,: No Is patient up to date on immun: Yes Review of Systems Review of Systems Constitutional: no symptoms EENTM: as per HPI, nose pain (tip of nose tender and draining "pus.") Cardiovascular: no symptoms Respiratory: no symptoms Gastrointestinal: no symptoms Musculoskeletal: no symptoms Neurological: no symptoms Review of other systems All other systems reviewed and negative. Physical Exam Related Data Allergies: Coded Allergies: azithromycin (Verified Allergy, Intermediate, facial swelling, 08/21/19) lactose (Verified Allergy, Intermediate, LACTOSE INTOLERANT, 08/13/19) Vital signs reviewed: Yes Physical Exam CONSTITUTIONAL Constitutional: well-developed, well-nourished, other (diffuse scarring on face) HENT HENT: normocephalic, atraumatic, oropharynx clear/moist, nasal discharge (small sore on the tip of the left nare, with eschar, dry and without drainage, no fluctuance; swollen, boggy left inferior nasal turbinate) HENT L/R: left ext ear normal, right ext ear normal EYES Eyes: PERRL, conjunctivae normal NECK Neck: ROM normal PULMONARY Pulmonary: effort normal, breath sounds normal CARDIOVASCULAR Cardiovascular: regular rhythm, heart sounds normal, capillary refill normal, normal rate GASTROINTESTINAL GENITOURINARY Genitourinary: exam deferred SKIN Skin: warm, dry MUSCULOSKELETAL Musculoskeletal: ROM normal NEUROLOGICAL PSYCHOLOGICAL Critical Care Time Subsequent provider I assumed direction of critical care for this patient from another provider of my specialty. Assessment & Plan Assessment & Plan Final Impression: (1) Impetigo (2) ESSENTIAL (PRIMARY) HYPERTENSION (3) MILD INTERMITTENT ASTHMA, UNCOMPLICATED Assessment & Plan - Take antibiotics, as directed - Continue using Mupirocin ointment intranasally bid - VERY important to f/u with your PCP, as discussed, next week, to re-evaluate. If symptoms persist, you may need to be seen by ENT, who can perform a more thorough exam of nasal passages. Significant edema of left intranasal area, but does not appear to be an abscess. Pt denies drug or cocaine use. No epistaxis. - good handwashing. - Pt voiced understanding of the plan. Depart Disposition: HOME, SELF-nursing home Meds Active Scripts Doxycycline Hyclate (DOXYCYCLINE HYCLATE) 100 Mg Capsule, 100 MG PO BID for infection for 14 Days, #28 TAB-CAP 0 Refills Prov:ADAN GREEN MD 08/21/19 Reported Medications Propranolol Hcl (PROPRANOLOL HCL) 80 Mg Tablet, TID 08/21/19 ADAN GREEN MD Aug 21, 2019 17:59
[2019-08-21] MEDS ORDERED: PROPRANOLOL HCL80 M1 (18:22)
[2019-08-21] MEDS ORDERED: DOXYCYCLINE HY100 MG PO (18:27)
== END 2019-08-21 18:39 | disposition home or self-care (01) ==
LOC: FSED 17:12
DX: L01.00 Impetigo, unspecified (principal); I10 Essential (primary) hypertension; J45.20 Mild intermittent asthma, uncomplicated; F17.210 Nicotine dependence, cigarettes, uncomplicated
CPT/HCPCS: 99283